=== PATIENT | male | born 1960 | race Caucasian/White ===

== ENCOUNTER 2022-10-31 09:57 | Inpatient (IN) | payer OTHER ==
[2022-10-31] MEDS ORDERED: RX INFO: IV CONTRAST WAS GIVEN 1 EACH MISC MISCELLANE PRN (10:10)
[2022-10-31] MEDS ORDERED: HYDROmorphone 0.5 MG/0.5 ML SYRINGE IVP STA (10:10)
--- NOTE | 2022-10-31 10:15 | ED ---
Chest Pain HPI - General Chief Complaint: Chest Pain Stated Complaint: chest pain Time Seen by Provider: 10/31/22 09:58 Source: patient, family, RN notes reviewed Mode of arrival: ambulatory Limitations: no limitations - History of Present Illness Initial Comments: This is a 62-year-old male who presents to the emergency department for chest pain and coughing up blood. 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 He had a biopsy of the mass and surrounding lymph nodes one week ago. This was all done at the [facility]. He has not been told if this tumor is cancerous or not, and he has not gotten the results of the recent biopsy. Since the biopsy, he has had increasing pain to the right side of the chest, which is where the biopsy was done. He is also unable to stop coughing, and is producing blood each time that he coughs. He did not have symptoms like this in terms of the pain and coughing up blood prior to the biopsy. Denies any fevers, chills, sore throat, palpitations, abdominal pain, nausea, vomiting, diarrhea, back pain, or headaches. MD Complaint: chest pain Onset/Timin -: week(s) Context: recent surgery Other Symptoms: cough - Related Data Home Medications Medication Instructions Recorded Confirmed Escitalopram [Lexapro] 10 mg PO HS 10/31/22 10/31/22 Ferrous Sulfate [Iron] 325 mg PO HS 10/31/22 10/31/22 HYDROcodone/APAP 7.5-325MG [[place] 1 tab PO Q6H PRN 10/31/22 10/31/22 7.5-325] Allergies Allergy/AdvReac Type Severity Reaction Status Date / Time No Known Allergies Allergy Verified 10/31/22 12:16 Review of Systems ROS Statement: Those systems with pertinent positive or pertinent negative responses have been documented in the HPI. ROS Other: All systems not noted in ROS Statement are negative. EKG Findings - EKG Comments: EKG Findings:: Sinus tachycardia. Normal axis. Ventricular rate 70 bpm, MD interval 170 ms, QRS duration 96 ms, QTC 373 ms. EKG interpreted by both myself and ED attending, Dr. Stephenson. Past Medical History Additional Past Medical History / Comment(s): Bronchitis, Lung tumor History of Any Multi-Drug Resistant Organisms: None Reported Past Surgical History: Joint Replacement, Orthopedic Surgery Additional Past Surgical History / Comment(s): [place] Pneumothorax. Past Psychological History: No Psychological Hx Reported Smoking Status: Current every day smoker Past Alcohol Use History: None Reported Past Drug Use History: None Reported General Exam Limitations: no limitations General appearance: alert, in distress Head exam: Present: atraumatic, normocephalic, normal inspection Respiratory exam: Present: respiratory distress. Absent: wheezes, rales, rhonchi Cardiovascular Exam: Present: normal rhythm, tachycardia Neurological exam: Present: alert, oriented X3, CN II-XII intact Psychiatric exam: Present: normal affect, normal mood Skin exam: Present: warm, dry, intact, normal color. Absent: rash Course Vital Signs 10/31/22 10/31/22 10/31/22 09:58 11:58 12:55 Temperature 98.7 F 99.4 F Pulse Rate 122 H 111 H 106 H Respiratory 24 22 22 Rate Blood Pressure 167/77 121/61 134/59 O2 Sat by Pulse 95 93 L 95 Oximetry Chest Pain MDM - MDM This is a 62 year old male who presents to the emergency department for chest pain and hemoptysis. Lab work reveals marked leukocytosis at 65.7. I did review his records from the [facility], this did not give results of his biopsy, however it did provide recent lab work. His last white blood cell count in early September was 25, which is the most recent comparison we have at this point. He does also have a slightly decreased hemoglobin level and a very elevated alkaline phosphatase along with multiple electrolyte irregularities. CT angiogram of the chest was obtained without d-dimer prior, as the possible cancer diagnosis may cause it to be positive regardless. Additionally, this will provide better evaluation of the suspected lung mass. My interpretation of the patient's computed tomography scan reveals a large mass in the right upper lobe with destruction of the first and second ribs on the right. The radiologist also makes note of chest wall involvement and possible right tracheal metastatic lymphadenopathy. Due to these findings and the patient's pain, hemoptysis, and difficulty breathing, he will be admitted to medicine with pulmonology and hematology/oncology consult. Due to the leukocytosis, he was started on broad- spectrum antibiotics including vancomycin and ceftriaxone. Blood and sputum cultures obtained prior. Additionally, he does meet SIRS criteria due to the WBC count and tachycardia. With a suspected infection, he meets sepsis criteria and was subsequently administered a 2500 L bolus of normal saline. Lactic acid level pending at the time of admission. This case was discussed in detail with the attending ED physician. Presentation, findings, and treatment plan discussed in detail as well. Disposition Clinical Impression: Cavitating mass in right upper lung lobe, Leukocytosis, Hemoptysis Disposition: ADMITTED IP TO THIS HOSP
[2022-10-31 10:51] LABS: Basophils # (A) 0.5 k/uL (0-0.2); Basophils % (A) 1 %; Eosinophils # (A) 0.4 k/uL (0-0.7); Eosinophils % (A) 1 %; HCT 32.3 % (39.0-53.0); HGB 10.3 gm/dL (13.0-17.5); Hypochromasia Slight; Lymphocytes # (A) 0.7 k/uL (1.0-4.8); Lymphocytes % (A) 1 %; MCH 28.5 pg (25.0-35.0); MCHC 31.8 g/dL (31.0-37.0); MCV 89.4 fL (80.0-100.0); Mean Platelet Volume 7.8; Monocytes # (A) 1.2 k/uL (0-1.0); Monocytes % (A) 2 %; Neutrophils # (A) 62.5 k/uL (1.3-7.7); Neutrophils % (A) 95 %; Platelet Count 504 k/uL (150-450); RBC 3.61 m/uL (4.30-5.90); RDW 13.9 % (11.5-15.5)
[2022-10-31 10:55] LABS: INR 1.3 (<1.2); Partial Thromboplastin Time 28.1 sec (22.0-30.0); Prothrombin Time 13.4 sec (9.0-12.0)
[2022-10-31 10:56] LABS: ALT 13 U/L (4-49); AST 24 U/L (17-59); African American GFR (CKD) >90 (>60 ml/min/1.73 sqM); Albumin 3.4 g/dL (3.5-5.0); Alkaline Phosphatase 619 U/L (38-126); Anion Gap 13 mmol/L; Blood Urea Nitrogen 13 mg/dL (9-20); Carbon Dioxide 17 mmol/L (22-30); Chloride 104 mmol/L (98-107); Glucose 116 mg/dL (74-99); Magnesium 1.6 mg/dL (1.6-2.3); Non-African American GFR(CKD) >90 (>60 ml/min/1.73 sqM); Potassium 3.3 mmol/L (3.5-5.1); Sodium 134 mmol/L (137-145); Total Bilirubin 0.7 mg/dL (0.2-1.3); Total Protein 6.5 g/dL (6.3-8.2); WBC 65.7 k/uL (3.8-10.6)
[2022-10-31 11:31] LABS: C Reactive Protein 30.6 mg/dL (<1.0)
--- NOTE | 2022-10-31 11:40 | CT ---
EXAMINATION TYPE: CT chest angio for PE DATE OF EXAM: 10/31/2022 COMPARISON: None HISTORY: 62-year-old male Chest pain TECHNIQUE: Contiguous axial scanning of the chest performed with IV Contrast, patient injected with 7 4 mL of Isovue 370. Coronal/sagittal MIP reconstructions performed. CT DLP: 401.8 mGycm Automated exposure control for dose reduction was used. FINDINGS: Heart normal size with trace anterior pericardial fluid. No flattening of the interventricular septum reflux of contrast into the hepatic veins. There is extensive patient breathing motion. Also, suboptimal contrast bolus with enhancement of only 198 Hounsfield units. There is large caliber to the central right and left main pulmonary arteries u p to 2.8 cm suggesting pulmonary arterial hypertension. No large central embolus is seen. Lobar, segm ental, and more to start her branches are very limited and nondiagnostic and emboli in these location s cannot be adequately excluded on the basis of this exam. Ectatic upper descending thoracic aorta at 3.3 cm. In metatarsal vessel branching anatomy. Enlarged right paratracheal node at 3.5 cm. Enlarged right hilar node at 2.1 cm. There is a right superior sulcus mass centered at the right apex but involving the chest wall as well . There is pathologic fracture of the right lateral first rib and right anterolateral second rib. Karl truction of a segment of the right lateral second rib and a small portion of the right lateral third rib. Extension beyond the rib margin by 1.6 cm beyond the intercostal musculature. Extensive internal areas of cavitation are present. Mass measures approximately 12.6 cm craniocaudal, coronal image 10 0, and up to 11.7 cm wide. Some adjacent airspace opacity lateral right upper lobe probably post obstructive pneumonitis. Background mild to moderate upper lung emphysema, particularly paraseptal emphysema. Extensive motion limiting the lower lungs. A couple 4 mm nonobstructive renal calculi are seen on either side. Minimal thickening of the left ad renal gland without discrete nodularity is nonspecific. Bones: Right-sided rib destruction and pathologic fractures as described above. IMPRESSION: 1. ASSESSMENT FOR PULMONARY EMBOLUS IS VERY LIMITED DUE TO PATIENT BREATHING DURING THE SCAN WELL SUBOPTIMAL CONTRAST BOLUS. THERE IS NO LARGE CENTRAL PULMONARY EMBOLUS. LOBAR, SEGMENTAL, AND MORE DISTAL ARTERIAL BRANCHES ARE VERY LIMITED TO NONDIAGNOSTIC AND EMBOLI IN THESE LOCATIONS CANNOT BE E XCLUDED ON THE BASIS OF THIS EXAM. 2. LARGE, PARTIALLY CAVITATING MASS INVOLVING THE RIGHT UPPER LOBE, RIGHT APEX, AND ADJACENT CHEST WA LL MEASURING UP TO 12.6 CM. THERE ARE PATHOLOGIC FRACTURES OF THE RIGHT FIRST AND SECOND RIBS AND KARL TRUCTION OF THE RIGHT LATERAL SECOND RIB AND A SMALL PORTION OF THE RIGHT LATERAL THIRD RIB. CHEST WA LL INVOLVEMENT WITH SOFT TISSUE EXTENSION BEYOND THE RIB MARGIN BY 1.6 CM. 3. SUSPECT RIGHT PARATRACHEAL METASTATIC LYMPHADENOPATHY MEASURING 3.5 CM. 4. SOME AIRSPACE OPACITY LATERAL RIGHT UPPER LOBE; CORRELATE FOR POSTOBSTRUCTIVE PNEUMONITIS.
[2022-10-31] MEDS ORDERED: VANCOMYCIN IV PER PHARMACY 1 EACH MISC MISCELLANE PRN (12:02)
[2022-10-31] MEDS ORDERED: HYDROmorphone 0.5 MG/0.5 ML SYRINGE IVP PRN (12:19)
[2022-10-31] MEDS ORDERED: NALOXONE 0.4 MG/ML 1 ML VIAL IV PRN (12:19)
[2022-10-31 12:48] LABS: Erythrocyte Sedimentation Rate 112 mm/hr (0-15)
[2022-10-31] MEDS: SODIUM CHLORIDE 0.9% 500 ML 500 ML IV SCH ×2 (12:54→14:56)
[2022-10-31] MEDS ORDERED: VANCOMYCIN 1,500 MG in SODIUM CHLORIDE 0.9% 500 ML 500 ML IVPB ONE (13:00)
[2022-10-31] MEDS: HYDROmorphone 1 MG/ML 1 ML SYRINGE IVP PRN ×4 (15:09→22:45)
[2022-10-31] MEDS: ACETAMINOPHEN TAB 325 MG TAB PO PRN (15:09)
--- NOTE | 2022-10-31 16:34 | P.CNPUL ---
History of Present Illness Consult date: 10/31/22 Requesting physician: Napoleon Ugalde Reason for consult: lung mass Chief complaint: Chronic cough History of present illness: This is a 62-year-old white male, heavy smoker, patient has been ill apparently for the last few months. Patient was found to have a right upper lobe cavitary mass, and he was seen at [facility] back in August in he underwent bronchoscopy and biopsy, however the biopsy was nondiagnostic. [facility] and he underwent another lung biopsy and this was supposedly done last week. Patient was never made aware of the results of the biopsy, and he was never told whether the findings are findings suggestive of lung cancer or suggestive of infection. Nonetheless the patient has been experiencing intermittent episodes of cough, cough is productive with brownish phlegm, and at times blood-tinged sputum. Patient has been losing weight, he lost over 30 pounds in the last few months. He called his primary care physician in [place], and he recommended that he goes to the nearest hospital. Patient is here today, and CT of the chest showed evidence of large cavitating mass involving the right upper lobe/right apex, with chest wall invasion, pathological fractures of the first and second ribs, and destruction of the right lateral second rib with chest wall invasion and extending beyond the rib margin by 1.6 cm. Patient was also found to have right paratracheal lymphadenopathy measuring 3.5 cm. Postobstructive pneumonitis was also felt to be likely in the picture. Clinically the patient has been complaining of cough, intermittent fever, chills, and weight loss. WBC count is 65.7 hemoglobin is 10.3. Electrolytes are normal, calcium is elevated at 11.0. Patient was also found to have elevated alkaline phosphatase of 619 considering the findings, patient will be admitted and we were asked to see him on consultation. I did see the patient in the ER, and I am strongly recommending transfer to the [facility] since we have no pathology report on this patient, and now the differential diagnoses includes most likely malignancy/lungs CTA, however the possibility of infection is not entirely ruled out. Or the patient may have a postobstructive pneumonitis no records are available for me to review from the [facility] or from [facility]. However I am strongly suspecting that were dealing with primary malignancy involving the right upper lobe Review of Systems Constitutional: Fever, and weight loss. HEENT: Negative Pulmonary: Cough, shortness of breath, as noted in HPI hemoptysis. Cardiac: Negative GI: Negative Genitourinary: Negative Muscular skeletal: Negative Skin: Negative hematologic: Negative Psychiatric: Negative Neurologic: Negative Past Medical History Additional Past Medical History / Comment(s): Bronchitis, Lung tumor History of Any Multi-Drug Resistant Organisms: None Reported Past Surgical History: Joint Replacement, Orthopedic Surgery Additional Past Surgical History / Comment(s): [place] Pneumothorax. Past Psychological History: No Psychological Hx Reported Smoking Status: Current every day smoker Past Alcohol Use History: None Reported Past Drug Use History: None Reported Medications and Allergies Home Medications Medication Instructions Recorded Confirmed Type Escitalopram [Lexapro] 10 mg PO HS 10/31/22 10/31/22 History Ferrous Sulfate [Iron] 325 mg PO HS 10/31/22 10/31/22 History HYDROcodone/APAP 7.5-325MG [[place] 1 tab PO Q6H PRN 10/31/22 10/31/22 History 7.5-325] Allergies Allergy/AdvReac Type Severity Reaction Status Date / Time No Known Allergies Allergy Verified 10/31/22 12:16 Physical Exam Vitals: Vital Signs Temp Pulse Resp BP Pulse Ox 10/31/22 14:58 99.3 F 106 H 21 139/75 95 10/31/22 12:55 106 H 22 134/59 95 10/31/22 11:58 99.4 F 111 H 22 121/61 93 L 10/31/22 09:58 98.7 F 122 H 24 167/77 95 Intake and Output 10/31/22 10/31/22 10/31/22 06:59 14:59 22:59 Other: Weight 77.111 kg Physical Exam: Revealed a 62-year-old white male noted to have significant cough throughout the whole interview. Head: Atraumatic normocephalic. HEENT:[Neck is supple.] [No neck masses.] [No thyromegaly.] [No JVD.] Chest: [Scattered rhonchi noted bilaterally more so on forced expiratory maneuver. Cardiac Exam: [Normal S1 and S2, no S3 gallop, no murmur.] Abdomen: [Soft, nontender, no megaly, no rebound, no guarding, normal bowel sounds.] Extremities: [No clubbing, no edema, no cyanosis.] Neurological Exam: [No focal neurologic deficit.] Alert oriented 3. Psychiatric: Normal mood affect and normal mental status examination. Skin: No rashes. Results - Laboratory Findings CBC and BMP: 10/31/22 10:35 10/31/22 10:35 PT/INR, D-dimer PT 13.4 sec (9.0-12.0) H 10/31/22 10:35 INR 1.3 (<1.2) H 10/31/22 10:35 Abnormal lab findings: Abnormal Labs 10/31/22 10/31/22 10/31/22 10:35 10:35 10:35 WBC 65.7 H* RBC 3.61 L Hgb 10.3 L Hct 32.3 L Plt Count 504 H Neutrophils # 62.5 H Lymphocytes # 0.7 L Monocytes # 1.2 H Basophils # 0.5 H ESR 112 H PT 13.4 H INR 1.3 H Sodium 134 L Potassium 3.3 L Carbon Dioxide 17 L Glucose 116 H Calcium 11.0 H Alkaline Phosphatase 619 H C-Reactive Protein 30.6 H Albumin 3.4 L - Diagnostic Findings CT scan - chest: image reviewed (As noted in HPI.) Assessment and Plan Assessment: Impression: Large right upper lobe mass with cavitation and possible postobstructive pneumonitis. Differential diagnoses includes bronchogenic carcinoma and/or ex tensive necrotizing pneumonia involving the right upper lobe. Or possibly both. Leukocytosis secondary to above, possible leukemoid reaction Weight loss secondary to above Acute exacerbation of COPD Tobacco dependence syndrome Status post bronchoscopy 2, one done at [facility] and one done at the [facility], results are not available since his last bronchoscopy was done within the last week. Recommendation: Consider transferring patient to the [facility] where he had his biopsy Start patient empirically on antibiotics I would recommend for now vancomycin and Zosyn Retrieve the pathology report from the [facility], patient had bronchoscopy in the last 1 week. If results are nondiagnostic patient may have to have repeat bronchoscopy with transbronchial biopsy or possibly CT-guided needle biopsy of the right upper lobe mass. Bronchodilators in the form of DuoNeb, and Symbicort. Check sputum cultures and blood cultures Monitor his leukocytosis. Preferably would be best to transfer the patient back to the [facility] rather than waiting for few days before we could get any results on his pathology. And this is highly recommended We will continue to follow Time with Patient: Greater than 30
[2022-10-31] MEDS: PIPERACILLIN-TAZOBACTAM 3.375 GM in SODIUM CHLORIDE 0.9% 100 ML IVPB SCH ×2 (16:41→23:14)
[2022-10-31] MEDS ORDERED: POTASSIUM CHLORIDE 20 MEQ in WATER FOR INJECTION 1 100ML.BAG IVPB STA (18:48)
--- NOTE | 2022-10-31 18:51 | P.HPIM ---
History of Present Illness H&P Date: 10/31/22 Patient is a 62-year-old male with past medical history of right lung mass and [id number] smoking history presents the ED for right-sided chest pain, cough productive of brown sputum, hemoptysis and shortness of breath. Patient gets all of his care from the [facility]. He underwent bronchoscopy and biopsy in August 2022 for right lung mass. Pathology was nondiagnostic at that time. Patient reports undergoing a second bronchoscopy and lung biopsy last week with the [facility] in [place]. He is unaware of the pathology results from this biopsy. He reports worsening cough productive of brown sputum and blood. He reports exertional shortness of breath. He reports right-sided chest pain worsened with deep inspiration and cough. Of note, patient also reports 30 pound weight loss since August, unintentional. He also reports fever and chills. He denies any headache, lower extremity edema, nausea or vomiting, palpitations, changes in urination or bowel habits. He denies any dizziness, numb ness/weakness/tingling of the extremities. In the ED, he was noted to be tachycardic with heart rate in the 120s. Vital signs were otherwise stable. CBC showed WBC count of 65.7 which was lymphocytic in nature with hemoglobin of 10.3 and platelet count of 504. INR was 1.3. CMP showed sodium 134, potassium of 3.3, bicarb of 17, glucose 116, calcium of 11, alkaline phosphatase of 619. Troponin was less than 0.012, EKG showing sinus tachycardia. Lactic acid negative. CRP was 30.6. ESR was 112. CTA chest showed no PE, large cavitary mass involving the right upper lobe, right apex and adjacent chest wall measuring 12.6 cm with pathologic fractures of the right first and second rubs, right paratracheal metastatic lymphadenopathy measuring 3.5 cm, airspace opacity lateral right upper lobe possible postobstructive pneumonitis. Initially, plan was to transfer the patient to [facility] in [place]. Due to lack of bed availability, patient has been admitted for further management of symptoms. Pertinent positives and negatives as discussed in HPI, a complete review of systems was performed and all other systems are negative. General: non toxic, moderate distress, appears at stated age Derm: warm, dry Head: atraumatic, normocephalic, symmetric Eyes: EOMI, no lid lag, anicteric sclera Mouth: no lip lesion, mucus membranes moist Cardiovascular: Tachycardic, no murmur, positive posterior tibial pulse bilateral, Lungs: Expiratory wheezing bilateral, rhonchi noted in all lung alvarado , no accessory muscle use Abdominal: soft, nontender to palpation, no guarding, no appreciable organome austen Ext: no gross muscle atrophy, no edema, no contractures Neuro: CN II-XI grossly intact, no focal neuro deficits Psych: Alert, oriented, appropriate affect #Right upper lobe mass #Sepsis related to hospital-acquired pneumonia #Hemoptysis #Right-sided chest pain #Leukocytosis His leukocytosis is lymphocytic predominant. He also meets sepsis criteria with leukocytosis, tachycadia and positive source of infection. Concern for CLL. Concern for bronchogenic carcinoma with superimposed pneumonia. ESR and CRP elevated. Start Vancomycin and Zosyn for broad spectrum antibiotic coverage. Pain control with Dilaudid PNR. DuoNeb PRN for SOB/wheezing. Telemetry monitoring. Start NS at 100 cc/hr. Follow blood culture, sputum culture, influenza, COVID 19 test. Check procalcitonin. Obtain pathology results from [facility] in [place]. Pulmonology, Oncology and Infectious disease consulted. #Normocytic anemia Obtain iron studies, B12, Folate. Repeat CBC tomorrow. #Hypokalemia Replace and repeat BMP tomorrow. #Metabolic acidosis Likely due to underlying malignancy. Lactic acid negative. Continue IV hydration as above. #History of tobacco abuse Patient has quit. Patient names his decision maker if he cant make decisions for himself. Patient would like to be FULL CODE. Past Medical History Additional Past Medical History / Comment(s): Bronchitis, Lung tumor History of Any Multi-Drug Resistant Organisms: None Reported Past Surgical History: Joint Replacement, Orthopedic Surgery Additional Past Surgical History / Comment(s): [place] Pneumothorax. Past Psychological History: No Psychological Hx Reported Smoking Status: Current every day smoker Past Alcohol Use History: None Reported Past Drug Use History: None Reported Medications and Allergies Home Medications Medication Instructions Recorded Confirmed Type Escitalopram [Lexapro] 10 mg PO HS 10/31/22 10/31/22 History Ferrous Sulfate [Iron] 325 mg PO HS 10/31/22 10/31/22 History HYDROcodone/APAP 7.5-325MG [[place] 1 tab PO Q6H PRN 10/31/22 10/31/22 History 7.5-325] Allergies Allergy/AdvReac Type Severity Reaction Status Date / Time No Known Allergies Allergy Verified 10/31/22 12:16 Physical Exam Vitals: Vital Signs Temp Pulse Resp BP Pulse Ox 10/31/22 14:58 99.3 F 106 H 21 139/75 95 10/31/22 12:55 106 H 22 134/59 95 10/31/22 11:58 99.4 F 111 H 22 121/61 93 L 10/31/22 09:58 98.7 F 122 H 24 167/77 95 Intake and Output 10/31/22 10/31/22 10/31/22 06:59 14:59 22:59 Other: Weight 77.111 kg Results CBC & Chem 7: 10/31/22 10:35 10/31/22 10:35 Labs: Abnormal Lab Results - Last 24 Hours (Table) 10/31/22 10/31/22 10/31/22 Range/Units 10:35 10:35 10:35 WBC 65.7 H* (3.8-10.6) k/uL RBC 3.61 L (4.30-5.90) m/uL Hgb 10.3 L (13.0-17.5) gm/dL Hct 32.3 L (39.0-53.0) % Plt Count 504 H (150-450) k/uL Neutrophils # 62.5 H (1.3-7.7) k/uL Lymphocytes # 0.7 L (1.0-4.8) k/uL Monocytes # 1.2 H (0-1.0) k/uL Basophils # 0.5 H (0-0.2) k/uL ESR 112 H (0-15) mm/hr PT 13.4 H (9.0-12.0) sec INR 1.3 H (<1.2) Sodium 134 L (137-145) mmol/L Potassium 3.3 L (3.5-5.1) mmol/L Carbon Dioxide 17 L (22-30) mmol/L Glucose 116 H (74-99) mg/dL Calcium 11.0 H (8.4-10.2) mg/dL Alkaline Phosphatase 619 H (38-126) U/L C-Reactive Protein 30.6 H (<1.0) mg/dL Albumin 3.4 L (3.5-5.0) g/dL
[2022-10-31] MEDS: IPRATROPIUM-ALBUTEROL 3 ML NEB INHALATION SCH ×2 (19:15→23:46)
[2022-10-31] MEDS: SODIUM CHLORIDE 0.9% 1,000 ML IV SCH (22:49)
[2022-10-31] MEDS: ESCITALOPRAM 10 MG TAB PO SCH (23:02)
[2022-10-31] MEDS: FERROUS SULFATE 325 MG TAB PO SCH (23:02)
[2022-10-31] MEDS: VANCOMYCIN 1,500 MG in SODIUM CHLORIDE 0.9% 500 ML 500 ML IVPB SCH (23:05)
[2022-11-01] MEDS: HYDROmorphone 1 MG/ML 1 ML SYRINGE IVP PRN ×3 (01:23→08:33)
[2022-11-01] MEDS: IBUPROFEN 400 MG TAB PO PRN ×2 (03:14→10:37)
[2022-11-01] MEDS: IPRATROPIUM-ALBUTEROL 3 ML NEB INHALATION SCH ×6 (04:03→23:34)
[2022-11-01] MEDS: VANCOMYCIN 1,500 MG in SODIUM CHLORIDE 0.9% 500 ML 500 ML IVPB SCH ×2 (05:07→14:24)
[2022-11-01] MEDS: SODIUM CHLORIDE 0.9% 1,000 ML IV SCH (05:08)
[2022-11-01] MEDS: PIPERACILLIN-TAZOBACTAM 3.375 GM in SODIUM CHLORIDE 0.9% 100 ML IVPB SCH ×2 (08:35→17:04)
[2022-11-01] MEDS: ONDANSETRON 4 MG/2 ML VIAL IVP PRN (08:40)
[2022-11-01 09:00] LABS: African American GFR (CKD) >90 (>60 ml/min/1.73 sqM); Anion Gap 10 mmol/L; Blood Urea Nitrogen 10 mg/dL (9-20); Carbon Dioxide 20 mmol/L (22-30); Chloride 110 mmol/L (98-107); Glucose 98 mg/dL (74-99); Non-African American GFR(CKD) >90 (>60 ml/min/1.73 sqM); Potassium 3.3 mmol/L (3.5-5.1); Sodium 140 mmol/L (137-145)
--- NOTE | 2022-11-01 10:44 | P.PN ---
Subjective Progress Note Date: 11/01/22 This is a 62-year-old white male, heavy smoker, patient has been ill apparently for the last few months. Patient was found to have a right upper lobe cavitary mass, and he was seen at [facility] back in August in he underwent bronchoscopy and biopsy, however the biopsy was nondiagnostic. Patient was seen at the [facility] and he underwent another lung biopsy and this was supposedly done last week. Patient was never made aware of the results of the biopsy, and he was never told whether the findings are findings suggestive of lung cancer or suggestive of infection. Nonetheless the patient has been experiencing intermittent episodes of cough, cough is productive with brownish phlegm, and at times blood-tinged sputum. Patient has been losing weight, he lost over 30 pounds in the last few months. He called his primary care physician in [place], and he recommended that he goes to the nearest hospital. Patient is here today, and CT of the chest showed evidence of large cavitating mass involving the right upper lobe/right apex, with chest wall invasion, pathological fractures of the first and second ribs, and destruction of the right lateral second rib with chest wall invasion and extending beyond the rib margin by 1.6 cm. Patient was also found to have right paratracheal lymp hadenopathy measuring 3.5 cm. Postobstructive pneumonitis was also felt to be likely in the picture. Clinically the patient has been complaining of cough, intermittent fever, chills, and weight loss. WBC count is 65.7 hemoglobin is 10.3. Electrolytes are normal, calcium is elevated at 11.0. Patient was also found to have elevated alkaline phosphatase of 619 considering the findings, patient will be admitted and we were asked to see him on consultation. I did see the patient in the ER, and I am strongly recommending transfer to the [facility] since we have no pathology report on this patient, and now the differential diagnoses includes most likely malignancy/lungs CTA, however the possibility of infection is not entirely ruled out. Or the patient may have a postobstructive pneumonitis no records are available for me to review from the [facility] or from [facility]. However I am strongly suspecting that were dealing with primary malignancy involving the right upper lobe. The patient is seen today 11/01/2022 in follow-up on the regular medical floor. He is awake and alert in no acute distress. Currently resting comfortably in bed. Maintaining O2 saturations in the 90s on room air. Sputum culture pending. Sodium 140. Potassium 3.3. Chloride 110. Bicarb 20. BUN 10. Creatinine 0.80. Bryant virus not detected. Influenza screen negative. He remains on bronchodilators. Antibiotics in the form of a myosin and Zosyn. He has a productive cough of tannish yellow sputum. The patient states he spoke with a nurse from the [facility] who did tell him his pathology was positive for cancer. We are trying to obtain these results. The patient does have right upper lobe chest wall protrusion. He also has a right subclavian enlarged lymph node. Oncology has been consulted. Objective - Vital Signs Vital signs: Vital Signs Temp 99.2 F 11/01/22 04:56 Pulse 96 11/01/22 09:04 Resp 16 11/01/22 04:56 BP 121/62 11/01/22 04:56 Pulse Ox 93 L 11/01/22 04:56 FiO2 Intake & Output 10/31/22 11/01/22 11/01/22 18:59 06:59 18:59 Output Total 300 Balance -300 Weight 77.111 kg 77.111 kg Output: Urine 300 - Exam GENERAL EXAM: Alert, pleasant 62-year-old male, on room air, fairly comfortable in no apparent distress. HEAD: Normocephalic. EYES: Normal reaction of pupils, equal size. NOSE: Clear with pink turbinates. THROAT: No erythema or exudates. NECK: Enlarged right supraclavicular lymph node, no JVD. CHEST: There is tumor protruding into the right apical chest below the clavicle. LUNGS: Equal air entry with scattered rhonchi more so on the right lung. CVS: S1 and S2 normal with no audible murmur, regular rhythm. ABDOMEN: No hepatosplenomegaly, normal bowel sounds, no guarding or rigidity. SPINE: No scoliosis or deformity SKIN: No rashes CENTRAL NERVOUS SYSTEM: No focal deficits, tone is normal in all 4 extremities. EXTREMITIES: There is no peripheral edema. No clubbing, no cyanosis. Peripher al pulses are intact. - Labs CBC & Chem 7: 10/31/22 10:35 11/01/22 07:51 Labs: Abnormal Lab Results - Last 24 Hours (Table) 10/31/22 10/31/22 10/31/22 Range/Units 10:35 10:35 10:35 WBC 65.7 H* (3.8-10.6) k/uL RBC 3.61 L (4.30-5.90) m/uL Hgb 10.3 L (13.0-17.5) gm/dL Hct 32.3 L (39.0-53.0) % Plt Count 504 H (150-450) k/uL Neutrophils # 62.5 H (1.3-7.7) k/uL Lymphocytes # 0.7 L (1.0-4.8) k/uL Monocytes # 1.2 H (0-1.0) k/uL Basophils # 0.5 H (0-0.2) k/uL ESR 112 H (0-15) mm/hr PT 13.4 H (9.0-12.0) sec INR 1.3 H (<1.2) Sodium 134 L (137-145) mmol/L Potassium 3.3 L (3.5-5.1) mmol/L Chloride (98-107) mmol/L Carbon Dioxide 17 L (22-30) mmol/L Glucose 116 H (74-99) mg/dL Calcium 11.0 H (8.4-10.2) mg/dL Alkaline Phosphatase 619 H (38-126) U/L C-Reactive Protein 30.6 H (<1.0) mg/dL Albumin 3.4 L (3.5-5.0) g/dL 11/01/22 Range/Units 07:51 WBC (3.8-10.6) k/uL RBC (4.30-5.90) m/uL Hgb (13.0-17.5) gm/dL Hct (39.0-53.0) % Plt Count (150-450) k/uL Neutrophils # (1.3-7.7) k/uL Lymphocytes # (1.0-4.8) k/uL Monocytes # (0-1.0) k/uL Basophils # (0-0.2) k/uL ESR (0-15) mm/hr PT (9.0-12.0) sec INR (<1.2) Sodium (137-145) mmol/L Potassium 3.3 L (3.5-5.1) mmol/L Chloride 110 H (98-107) mmol/L Carbon Dioxide 20 L (22-30) mmol/L Glucose (74-99) mg/dL Calcium (8.4-10.2) mg/dL Alkaline Phosphatase (38-126) U/L C-Reactive Protein (<1.0) mg/dL Albumin (3.5-5.0) g/dL Microbiology - Last 24 Hours (Table) 10/31/22 13:31 Gram Stain - Preliminary Sputum Sputum Culture - Preliminary Assessment and Plan Assessment: Large right upper lobe mass with cavitation and possible postobstructive pne umonitis. Differential diagnoses includes bronchogenic carcinoma and/or extensive necrotizing pneumonia involving the right upper lobe. Or possibly both. Computed tomography scan revealed enlarged right paratracheal node at 3.5 cm. Enlarged right hilar node at 2.1 cm. There is a right superior sulcus mass centered at the right apex but involving the chest wall as well. There is pathologic fracture of the right lateral first rib and right anterolateral second rib. Destruction of a segment of the right lateral second rib and a small portion of the right lateral third rib. Extension be on the rib margin by 1.6 cm beyond the intercostal musculature. Extensive internal areas of cavitation are present. Mass measures 12.6 cm x 11.7 cm. Some airspace opacity in the lateral right upper lobe. The remaining stable and on room air currently. Sputum culture pending. Pro-calcitonin pending. Remains on vancomycin and Zosyn. Leukocytosis secondary to above, possible leukemoid reaction Weight loss secondary to above Acute exacerbation of COPD Tobacco dependence syndrome Status post bronchoscopy 2, one done at [facility] and one done at the [facility], results are not available since his last bronchoscopy was done within the last week Plan: The patient was seen and evaluated Labs and medications reviewed Continue vancomycin and Zosyn Obtain a pro-calcitonin Sputum culture pending Currently stable and on room air He states he was told by a nurse from [facility] he does have cancer We are trying to obtain pathology reports Oncology has been consulted We will continue to follow and make further recommendations based on his clinical status I have personally seen and examined the patient, performed the documentation and the assessment and plan as written. Number of minutes spent on the visit: 10.
[2022-11-01 10:55] LABS: HCT 30.5 % (39.6-50.0); HGB 9.6 g/dL (13.0-17.0); MCH 28.8 pg (27.0-32.0); MCHC 31.5 g/dL (32.0-37.0); MCV 91.6 fL (80.0-97.0); Mean Platelet Volume 9.6 fL (9.5-12.2); NRBC Per 100 WBC 0 /100 WBCS (0.0-0.0); Platelet Count 466 X 10*3/uL (140-440); RBC 3.33 X 10*6/uL (4.40-5.60); RDW 14.6 % (11.5-14.5); WBC 61.99 X 10*3/uL (4.50-10.00)
[2022-11-01] MEDS ORDERED: MORPHINE SULFATE 4 MG/ML SYRINGE IVP STA (11:19)
[2022-11-01] MEDS: oxyCODONE-APAP 10-325MG 1 EACH TAB PO SCH ×3 (11:34→22:58)
--- NOTE | 2022-11-01 11:58 | P.PN ---
Subjective Progress Note Date: 11/01/22 Patient is a 62-year-old male with past medical history of right lung mass and [id number] smoking history presents the ED for right-sided chest pain, cough productive of brown sputum, hemoptysis and shortness of breath. Patient gets all of his care from the [facility]. He underwent bronchoscopy and biopsy in August 2022 for right lung mass. Pathology was nondiagnostic at that time. Patient reports undergoing a second bronchoscopy and lung biopsy last week with the [facility] in [place]. He is unaware of the pathology results from this biopsy. He reports worsening cough productive of brown sputum and blood. He reports exertional shortness of breath. He reports right-sided chest pain worsened with deep inspiration and cough. Of note, patient also reports 30 pound weight loss since August, unintentional. He also reports fever and chills. He denies any headache, lower extremity edema, nausea or vomiting, palpitations, changes in urination or bowel habits. He denies any dizziness, numbness/w eakness/tingling of the extremities. In the ED, he was noted to be tachycardic with heart rate in the 120s. Vital signs were otherwise stable. CBC showed WBC count of 65.7 which was lymphocytic in nature with hemoglobin of 10.3 and platelet count of 504. INR was 1.3. CMP showed sodium 134, potassium of 3.3, bicarb of 17, glucose 116, calcium of 11, alkaline phosphatase of 619. Troponin was less than 0.012, EKG showing sinus tachycardia. Lactic acid negative. CRP was 30.6. ESR was 112. CTA chest showed no PE, large cavitary mass involving the right upper lobe, right apex and adjacent chest wall measuring 12.6 cm with pathologic fractures of the right first and second rubs, right paratracheal metastatic lymphadenopathy measuring 3.5 cm, airspace opacity lateral right upper lobe possible postobstructive pneumonitis. Initially, plan was to transfer the patient to [facility] in [place]. Due to lack of bed availability, patient has been admitted for further management of symptoms. Patient was seen and examined. He continues to report chest pain with cough. Coughing up brown sputum. General: non toxic, moderate distress, appears at stated age Derm: warm, dry Head: atraumatic, normocephalic, symmetric Eyes: EOMI, no lid lag, anicteric sclera Mouth: no lip lesion, mucus membranes moist Cardiovascular: Tachycardic, no murmur, positive posterior tibial pulse bilateral, Lungs: Expiratory wheezing bilateral, rhonchi noted in all lung alvarado , no accessory muscle use Abdominal: soft, nontender to palpation, no guarding, no appreciable organomegaly Ext: no gross muscle atrophy, no edema, no contractures Neuro: no focal neuro deficits Psych: Alert, oriented, appropriate affect #Right upper lobe mass #Sepsis related to hospital-acquired pneumonia #Hemoptysis #Right-sided chest pain #Leukocytosis His leukocytosis is neutrophilic predominant. He also meets sepsis criteria with leukocytosis, tachycadia and positive source of infection. Concern for bronchogenic carcinoma with superimposed pneumonia. ESR and CRP elevated. Continue Vancomycin and Zosyn for broad spectrum antibiotic coverage. Pain control with Morphine PRN and started on scheduled Percocet. DuoNeb PRN for SOB/wheezing. Telemetry monitoring. DC IVF and encourage hydration by mouth. Follow blood culture, sputum culture, influenza, COVID 19 test. Check procalcitonin. Obtain pathology results from [facility] in [place]. Oncology consult - Discussed with Dr. Estevez, follow up with [facility] for further treatment and management on right lung mass. Pulmonology, Oncology and Infectious disease consulted. #Normocytic anemia Obtain iron studies, B12, Folate. Repeat CBC tomorrow. #Hypokalemia Replace and repeat BMP tomorrow. #Metabolic acidosis Likely due to underlying malignancy. Lactic acid negative. Continue IV hydration as above. #History of tobacco abuse Patient has quit. Patient names his decision maker if he cant make decisions for himself. Patient would like to be FULL CODE. Objective - Vital Signs Vital signs: Vital Signs Temp 99.2 F 11/01/22 04:56 Pulse 84 11/01/22 11:49 Resp 16 11/01/22 04:56 BP 121/62 11/01/22 04:56 Pulse Ox 93 L 11/01/22 04:56 FiO2 Intake & Output 10/31/22 11/01/22 11/01/22 18:59 06:59 18:59 Output Total 300 Balance -300 Weight 77.111 kg 77.111 kg Output: Urine 300 - Labs CBC & Chem 7: 11/01/22 07:51 11/01/22 07:51 Labs: Abnormal Lab Results - Last 24 Hours (Table) 10/31/22 11/01/22 11/01/22 Range/Units 10:35 07:51 07:51 WBC 61.99 H* (4.50-10.00) X 10*3/uL RBC 3.33 L (4.40-5.60) X 10*6/uL Hgb 9.6 L (13.0-17.0) g/dL Hct 30.5 L (39.6-50.0) % MCHC 31.5 L (32.0-37.0) g/dL RDW 14.6 H (11.5-14.5) % Plt Count 466 H (140-440) X 10*3/uL Neutrophils # 62.5 H (1.3-7.7) k/uL Lymphocytes # 0.7 L (1.0-4.8) k/uL Monocytes # 1.2 H (0-1.0) k/uL Basophils # 0.5 H (0-0.2) k/uL ESR 112 H (0-15) mm/hr Potassium 3.3 L (3.5-5.1) mmol/L Chloride 110 H (98-107) mmol/L Carbon Dioxide 20 L (22-30) mmol/L Microbiology - Last 24 Hours (Table) 10/31/22 13:31 Gram Stain - Preliminary Sputum Sputum Culture - Preliminary
[2022-11-01] MEDS: POTASSIUM CHLORIDE 10 MEQ in WATER FOR INJECTION 1 100ML.BAG IVPB SCH ×4 (12:49→23:04)
[2022-11-01] MEDS: MORPHINE SULFATE 4 MG/ML SYRINGE IVP PRN ×3 (14:22→21:37)
[2022-11-01 18:19] LABS: Iron 16 ug/dL (65-175); Total Iron Binding Capacity 141 ug/dL (228-460)
[2022-11-01] MEDS: FERROUS SULFATE 325 MG TAB PO SCH (21:24)
[2022-11-01] MEDS: ESCITALOPRAM 10 MG TAB PO SCH (21:24)
--- NOTE | 2022-11-01 21:25 | P.CONS ---
History of Present Illness - Reason for Consult Consult date: 11/01/22 Right Lung Mass - History of Present Illness The patient is a 62-year-old white male, presenting with complains of not fe eling well, shortness of breath, and cough productive of brownish phlegm with intermittent small amounts of blood. The patient's symptoms started about 3-4 months ago. They have been associated with decreased appetite and weight loss about 30 pounds. The patient did not respond rapidly to outpatient treatment for pneumonia and was subsequently found to have a large right upper lobe mass on imaging. He had a bronchoscopy with biopsy at [facility] in 08/23 when this was apparently nondiagnostic. He was then seen at the [facility] in [place] and had on the biopsy about a week ago but is not aware of those results. He came in because of persistence and progression of the above sym ptoms. The patient's computed tomography scan shows a large right upper lobe cavitating mass, with invasion into the chest wall and the first and second ribs with some associated rib destruction. There is also 3.5 cm right paratracheal adenopathy. Consult was therefore placed for further evaluation and recommendations. the patient has a history of a pack a day of more than 40 years. Review of Systems Constitutional: Reports fatigue, Reports poor appetite, Reports weight loss Eyes: denies blurred vision, denies pain Ears: deny: decreased hearing, ear discharge, earache, tinnitus Ears, nose, mouth and throat: Denies headache, Denies sore throat Cardiovascular: Reports chest pain, Reports shortness of breath Respiratory: Reports cough with sputum, Reports hemoptysis, Reports pain Gastrointestinal: Denies abdominal pain, Denies diarrhea, Denies nausea, Denies vomiting Genitourinary: Reports as per HPI Musculoskeletal: Reports muscle weakness Integumentary: Denies pruritus, Denies rash Neurological: Reports weakness Psychiatric: Reports anxiety, Reports irritability Endocrine: Reports fatigue, Reports weight change Hematologic/Lymphatic: Reports as per HPI Past Medical History Past Medical History: Pneumonia Additional Past Medical History / Comment(s): 08/2022 R upper lung mass, past pneumonia, born with bronchitis, bilateral pneumothorax at separate times treated with chest tubes, anemia, pt denies hx of copd. History of Any Multi-Drug Resistant Organisms: None Reported Past Surgical History: Orthopedic Surgery Additional Past Surgical History / Comment(s): 08/2022 R lung bx at [facility], 10/2022 R lung bx at [facility], R knee arthroscopic surgery, L wrist ganglion cyst re moved, L great toe titanium plate, colonoscopies/benign polypectomies. Past Anesthesia/Blood Transfusion Reactions: No Reported Reaction Smoking Status: Former smoker - Past Family History Mother Family Medical History: Vascular Disorder Additional Family Medical History / Comment(s): Mother at the age of 78yrs from ruptured aortic aneurysm. Father Additional Family Medical History / Comment(s): Pt unable to recall specific health issues with his father. Father is alive in his mid 90s Medications and Allergies Home Medications Medication Instructions Recorded Confirmed Type Escitalopram [Lexapro] 10 mg PO HS 10/31/22 10/31/22 History Ferrous Sulfate [Iron] 325 mg PO HS 10/31/22 10/31/22 History HYDROcodone/APAP 7.5-325MG [Moorcroft 1 tab PO Q6H PRN 10/31/22 10/31/22 History 7.5-325] Allergies Allergy/AdvReac Type Severity Reaction Status Date / Time No Known Allergies Allergy Verified 10/31/22 12:16 Physical Exam Vitals: Vital Signs Temp Pulse Pulse Resp BP BP Pulse Ox 11/01/22 09:04 96 11/01/22 08:51 96 11/01/22 04:56 99.2 F 102 H 16 121/62 93 L 11/01/22 04:15 90 11/01/22 04:04 87 10/31/22 23:57 91 10/31/22 23:46 94 10/31/22 22:23 98.3 F 111 H 20 153/62 93 L 10/31/22 20:00 16 10/31/22 19:23 95 10/31/22 19:15 96 10/31/22 18:59 98.9 F 97 18 120/58 94 L 10/31/22 14:58 99.3 F 106 H 21 139/75 95 10/31/22 12:55 106 H 22 134/59 95 10/31/22 11:58 99.4 F 111 H 22 121/61 93 L 10/31/22 09:58 98.7 F 122 H 24 167/77 95 Intake and Output 10/31/22 11/01/22 11/01/22 22:59 06:59 14:59 Output Total 300 Balance -300 Output: Urine 300 Other: Weight 77.111 kg - Constitutional General appearance: no acute distress - EENT Eyes: EOMI, PERRLA ENT: hearing grossly normal, normal oropharynx - Neck Neck: lymphadenopathy (somewhat ill-defined right supraclavicular mass) Thyroid: bilateral: normal size - Respiratory Respiratory: right: diminished - Cardiovascular Rhythm: regular - Gastrointestinal General gastrointestinal: normal bowel sounds, soft - Integumentary Integumentary: normal - Neurologic Neurologic: CNII-XII intact - Musculoskeletal soft tissue swelling right upper chest wall and right axilla, with significant tenderness on palpation of the chest wall in this area Musculoskeletal: generalized weakness, strength equal bilaterally - Psychiatric Psychiatric: A&O x's 3, appropriate affect Results CBC & Chem 7: 11/01/22 07:51 11/01/22 07:51 Labs: Abnormal Lab Results - Last 24 Hours (Table) 10/31/22 10/31/22 10/31/22 Range/Units 10:35 10:35 10:35 WBC 65.7 H* (3.8-10.6) k/uL RBC 3.61 L (4.30-5.90) m/uL Hgb 10.3 L (13.0-17.5) gm/dL Hct 32.3 L (39.0-53.0) % Plt Count 504 H (150-450) k/uL Neutrophils # 62.5 H (1.3-7.7) k/uL Lymphocytes # 0.7 L (1.0-4.8) k/uL Monocytes # 1.2 H (0-1.0) k/uL Basophils # 0.5 H (0-0.2) k/uL ESR 112 H (0-15) mm/hr PT 13.4 H (9.0-12.0) sec INR 1.3 H (<1.2) Sodium 134 L (137-145) mmol/L Potassium 3.3 L (3.5-5.1) mmol/L Chloride (98-107) mmol/L Carbon Dioxide 17 L (22-30) mmol/L Glucose 116 H (74-99) mg/dL Calcium 11.0 H (8.4-10.2) mg/dL Alkaline Phosphatase 619 H (38-126) U/L C-Reactive Protein 30.6 H (<1.0) mg/dL Albumin 3.4 L (3.5-5.0) g/dL 11/01/22 Range/Units 07:51 WBC (3.8-10.6) k/uL RBC (4.30-5.90) m/uL Hgb (13.0-17.5) gm/dL Hct (39.0-53.0) % Plt Count (150-450) k/uL Neutrophils # (1.3-7.7) k/uL Lymphocytes # (1.0-4.8) k/uL Monocytes # (0-1.0) k/uL Basophils # (0-0.2) k/uL ESR (0-15) mm/hr PT (9.0-12.0) sec INR (<1.2) Sodium (137-145) mmol/L Potassium 3.3 L (3.5-5.1) mmol/L Chloride 110 H (98-107) mmol/L Carbon Dioxide 20 L (22-30) mmol/L Glucose (74-99) mg/dL Calcium (8.4-10.2) mg/dL Alkaline Phosphatase (38-126) U/L C-Reactive Protein (<1.0) mg/dL Albumin (3.5-5.0) g/dL Microbiology - Last 24 Hours (Table) 10/31/22 13:31 Gram Stain - Preliminary Sputum Sputum Culture - Preliminary Comments: EKG image reviewed CT scan - chest: report reviewed Assessment and Plan (1) Cavitating mass in right upper lung lobe Narrative/Plan: the clinical picture is quite consistent with malignancy. Patient is aware of the same. Based on the CT scan results he appears to have at least locally advanced disease. - The patient apparently has had a biopsy last week at the [facility] but is not aware of the results. He stated that he is also had a PET scan, and MRI. We do not have those results available but the patient feels that he was told that the patient did not show metastatic disease. - The patient is established in the [facility] system, and has an appointment upcoming with their thoracic oncology clinic in mid 11/22 - The patient did state that it would be more convenient for him to be treated locally. However he does not know if he has any [facility]. I discussed with him that in that case, the switching care locally after getting approval through the [facility] from there be a choice system, may cause further delays in his care. Since it appears that he already has had all his workup completed, at this time it would be optimal for him to continue care through the [facility]. He was advised to call them to try to move up his appointment. The above plan was also discussed in detail with the admitting service. Current Visit: Yes Status: Acute Code(s): J98.4 - OTHER DISORDERS OF LUNG SNOMED Code(s): 925920879 (2) Leukocytosis Narrative/Plan: discussed with the admitting service. This is predominantly neutrophilic and is consistent with the record reaction likely due to the underlying malignancy plus superimposed clinical pneumonia. Current Visit: Yes Status: Acute Code(s): D72.829 - ELEVATED WHITE BLOOD CELL COUNT, UNSPECIFIED SNOMED Code(s): 907392656 Plan: recommendations for the patient to continue follow-up and treatment [facility] the [facility] were discussed with the admitting service. Patient will be treated fo r pneumonia and potentially be discharged on improvement. He was taking Moorcroft 7.5 at home with good efficacy. He can be discharged on the same.
--- NOTE | 2022-11-01 23:11 | P.CONS ---
History of Present Illness - Reason for Consult Consult date: 11/01/22 right upper lobe cavitating lesion Requesting physician: Amador Cano - Chief Complaint right-sided chest pain x weeks - History of Present Illness Patient is a 62-year-old male apparently did have a right upper lobe cavity 2 months for the patient did have a bronchoscopy and biopsy done at [facility] which apparently was nondiagnostic patient subsequently did have a repeat bronchoscopy and biopsy done at [facility] in [place] last week however results are not yet finalized patient is now presenting to the hospital concerning for right-sided chest pain that has been getting worse for the last few days patient described the pain to be sharp almost 10 out of 10 in severity with no radiation with associated cough which has been moderate intensity and is bringing up blood patient also complaining of some low-grade fever on presentation the hospital the patient was afebrile however he subsequently did spike low-grade fever of 99.4 F patient did have mild hypoxemia but not requiring any supplemental oxygen he did have white count 65,000 with a left shift BUN and creatinine has been normal liver enzymes are normal influenza: Epi cells's negative patient did have blood cultures obtained which are currently pending patient did have a CT angiogram of the chest that was negative for PE however did shows large partially cavitating mass involving the right upper lobe right apex and adjacent chest wall pathological fracture on the right first and second ribs and destruction of the right lateral second rib suspect right paratracheal metastatic lymphadenopathy and some airspace opacity concerning for possible postobstructive pneumonitis patient was started on vancomycin and Zosyn infectious disease was consulted for further management of antibiotic therapy Review of Systems Positive point has been mentioned in the HPI rest of the systems are negative Past Medical History Past Medical History: Pneumonia Additional Past Medical History / Comment(s): 08/2022 R upper lung mass, past pneumonia, born with bronchitis, bilateral pneumothorax at separate times treated with chest tubes, anemia, pt denies hx of copd. History of Any Multi-Drug Resistant Organisms: None Reported Past Surgical History: Orthopedic Surgery Additional Past Surgical History / Comment(s): 08/2022 R lung bx at [facility], 10/2022 R lung bx at [facility], R knee arthroscopic surgery, L wrist ganglion cyst removed, L great toe titanium plate, colonoscopies/benign polypectomies. Past Anesthesia/Blood Transfusion Reactions: No Reported Reaction Smoking Status: Former smoker - Past Family History Mother Family Medical History: Vascular Disorder Additional Family Medical History / Comment(s): Mother at the age of 78yrs from ruptured aortic aneurysm. Father Additional Family Medical History / Comment(s): Pt unable to recall specific h ealth issues with his father. Father is alive in his mid 90s Medications and Allergies Home Medications Medication Instructions Recorded Confirmed Type Morphine Sulfate ER [Ms Contin] 15 mg PO Q8H 11/12/22 11/12/22 History Morphine Sulfate ER [Ms Contin] 30 mg PO Q8H 11/12/22 11/12/22 History Morphine Sulfate Ir [MSIR] 15 mg PO Q3H PRN 11/12/22 11/12/22 History Allergies Allergy/AdvReac Type Severity Reaction Status Date / Time No Known Allergies Allergy Verified 11/12/22 11:31 Physical Exam Vitals: Vital Signs Temp Pulse Pulse Resp BP BP Pulse Ox 11/01/22 09:04 96 11/01/22 08:51 96 11/01/22 04:56 99.2 F 102 H 16 121/62 93 L 11/01/22 04:15 90 11/01/22 04:04 87 10/31/22 23:57 91 10/31/22 23:46 94 10/31/22 22:23 98.3 F 111 H 20 153/62 93 L 10/31/22 20:00 16 10/31/22 19:23 95 10/31/22 19:15 96 10/31/22 18:59 98.9 F 97 18 120/58 94 L 10/31/22 14:58 99.3 F 106 H 21 139/75 95 10/31/22 12:55 106 H 22 134/59 95 10/31/22 11:58 99.4 F 111 H 22 121/61 93 L Intake and Output 10/31/22 11/01/22 11/01/22 22:59 06:59 14:59 Output Total 300 Balance -300 Output: Urine 300 Other: Weight 77.111 kg GENERAL DESCRIPTION: Middle-aged male lying in bed, no distress. No tachypnea or accessory muscle of respiration use. HEENT: Shows Pallor , no scleral icterus. Oral mucous membrane is dry. No pharyngeal erythema or thrush NECK: Trachea central, no thyromegaly. LUNGS: Unlabored breathing. course breath sounds on the right side. HEART: S1, S2, regular rate and rhythm. No loud murmur ABDOMEN: Soft, no tenderness , guarding or rigidity, no organomegaly EXTREMITIES: No edema of feet. SKIN: No rash, no masses palpable. NEUROLOGICAL: The patient is awake, alert, oriented x3, mood and affect normal. Results CBC & Chem 7: 11/08/22 07:50 11/08/22 07:50 Labs: Abnormal Lab Results - Last 24 Hours (Table) 10/31/22 10/31/22 10/31/22 Range/Units 10:35 10:35 10:35 WBC 65.7 H* (3.8-10.6) k/uL RBC 3.61 L (4.30-5.90) m/uL Hgb 10.3 L (13.0-17.5) gm/dL Hct 32.3 L (39.0-53.0) % Plt Count 504 H (150-450) k/uL Neutrophils # 62.5 H (1.3-7.7) k/uL Lymphocytes # 0.7 L (1.0-4.8) k/uL Monocytes # 1.2 H (0-1.0) k/uL Basophils # 0.5 H (0-0.2) k/uL ESR 112 H (0-15) mm/hr PT 13.4 H (9.0-12.0) sec INR 1.3 H (<1.2) Sodium 134 L (137-145) mmol/L Potassium 3.3 L (3.5-5.1) mmol/L Chloride (98-107) mmol/L Carbon Dioxide 17 L (22-30) mmol/L Glucose 116 H (74-99) mg/dL Calcium 11.0 H (8.4-10.2) mg/dL Alkaline Phosphatase 619 H (38-126) U/L C-Reactive Protein 30.6 H (<1.0) mg/dL Albumin 3.4 L (3.5-5.0) g/dL 11/01/22 Range/Units 07:51 WBC (3.8-10.6) k/uL RBC (4.30-5.90) m/uL Hgb (13.0-17.5) gm/dL Hct (39.0-53.0) % Plt Count (150-450) k/uL Neutrophils # (1.3-7.7) k/uL Lymphocytes # (1.0-4.8) k/uL Monocytes # (0-1.0) k/uL Basophils # (0-0.2) k/uL ESR (0-15) mm/hr PT (9.0-12.0) sec INR (<1.2) Sodium (137-145) mmol/L Potassium 3.3 L (3.5-5.1) mmol/L Chloride 110 H (98-107) mmol/L Carbon Dioxide 20 L (22-30) mmol/L Glucose (74-99) mg/dL Calcium (8.4-10.2) mg/dL Alkaline Phosphatase (38-126) U/L C-Reactive Protein (<1.0) mg/dL Albumin (3.5-5.0) g/dL Microbiology - Last 24 Hours (Table) 10/31/22 13:31 Gram Stain - Preliminary Sputum Sputum Culture - Preliminary Assessment and Plan (1) Cavitating mass in right upper lung lobe Status: Acute Priority: High Code(s): J98.4 - OTHER DISORDERS OF LUNG SNOMED Code(s): 589146532 Plan: 1patient with right upper lobe cavitary mass high clinic suspicious for malignancy in this patient who did have a bronchoscopy and biopsy done at the [facility] last week with results currently pending, patient presenting to the hospital with worsening right-sided chest pain which is more likely due to his cavitary lung mass with some destruction of the adjacent ribs, underlying postobstructive pneumonia noted on excluded and no need to cover for the polymicrobial jovanny usually associated with this infection. 2 We will try to obtain a sputum for gram stain and culture. 3continue with the Zosyn however discontinue vancomycin to decrease risk of nephrotoxicity We will follow on clinical condition and cultures to further adjust medication if needed Thank you for this consultation will follow this patient along with you Time with Patient: Greater than 30
[2022-11-02] MEDS: PIPERACILLIN-TAZOBACTAM 3.375 GM in SODIUM CHLORIDE 0.9% 100 ML IVPB SCH ×3 (01:26→15:53)
[2022-11-02] MEDS: MORPHINE SULFATE 4 MG/ML SYRINGE IVP PRN ×5 (03:16→20:43)
[2022-11-02] MEDS: IPRATROPIUM-ALBUTEROL 3 ML NEB INHALATION SCH ×5 (03:38→19:34)
[2022-11-02] MEDS ORDERED: VANCOMYCIN TROUGH DUE 1 EACH MISC MISCELLANE ONE (04:00)
[2022-11-02] MEDS: oxyCODONE-APAP 10-325MG 1 EACH TAB PO SCH ×3 (06:12→18:15)
[2022-11-02 07:16] LABS: African American GFR (CKD) >90 (>60 ml/min/1.73 sqM); Non-African American GFR(CKD) >90 (>60 ml/min/1.73 sqM); Potassium 3.3 mmol/L (3.5-5.1)
[2022-11-02] MEDS ORDERED: IPRATROPIUM-ALBUTEROL 3 ML NEB INHALATION PRN (08:19)
[2022-11-02] MEDS: FOLIC ACID 1 MG TAB PO SCH (09:20)
[2022-11-02] MEDS: POTASSIUM CHLORIDE 10 MEQ in WATER FOR INJECTION 1 100ML.BAG IVPB SCH ×4 (09:20→15:51)
--- NOTE | 2022-11-02 11:20 | XR ---
EXAMINATION TYPE: XR chest 1V portable DATE OF EXAM: 11/02/2022 Comparison: CT 10/31/2022 Clinical History: 62-year-old male post chest wall biopsy Findings: Heart normal size. Aorta and pulmonary vasculature within normal limits. No centrally necrotic right apical mass with chest wall invasion and some right rib destruction. No appreciable pneumothorax. Impression: No appreciable pneumothorax. Known right apical, centrally necrotic mass with chest wall invasion and rib destruction.
--- NOTE | 2022-11-02 11:38 | P.PN ---
Subjective Progress Note Date: 11/02/22 This is a 62-year-old white male, heavy smoker, patient has been ill apparently for the last few months. Patient was found to have a right upper lobe cavitary mass, and he was seen at [facility] back in August in he underwent bronchoscopy and biopsy, however the biopsy was nondiagnostic. Patient was seen at the [facility] and he underwent another lung biopsy and this was supposedly done last week. Patient was never made aware of the results of the biopsy, and he was never told whether the findings are findings suggestive of lung cancer or suggestive of infection. Nonetheless the patient has been experiencing intermittent episodes of cough, cough is productive with brownish phlegm, and at times blood-tinged sputum. Patient has been losing weight, he lost over 30 pounds in the last few months. He called his primary care physician in [place], and he recommended that he goes to the nearest hospital. Patient is here today, and CT of the chest showed evidence of large cavitating mass involving the right upper lobe/right apex, with chest wall invasion, pathological fractures of the first and second ribs, and destruction of the right lateral second rib with chest wall invasion and extending beyond the rib margin by 1.6 cm. Patient was also found to have right paratracheal lymp hadenopathy measuring 3.5 cm. Postobstructive pneumonitis was also felt to be likely in the picture. Clinically the patient has been complaining of cough, intermittent fever, chills, and weight loss. WBC count is 65.7 hemoglobin is 10.3. Electrolytes are normal, calcium is elevated at 11.0. Patient was also found to have elevated alkaline phosphatase of 619 considering the findings, patient will be admitted and we were asked to see him on consultation. I did see the patient in the ER, and I am strongly recommending transfer to the [facility] since we have no pathology report on this patient, and now the differential diagnoses includes most likely malignancy/lungs CTA, however the possibility of infection is not entirely ruled out. Or the patient may have a postobstructive pneumonitis no records are available for me to review from the [facility] or from [facility]. However I am strongly suspecting that were dealing with primary malignancy involving the right upper lobe. The patient is seen today 11/01/2022 in follow-up on the regular medical floor. He is awake and alert in no acute distress. Currently resting comfortably in bed. Maintaining O2 saturations in the 90s on room air. Sputum culture pending. Sodium 140. Potassium 3.3. Chloride 110. Bicarb 20. BUN 10. Creatinine 0.80. Bryant virus not detected. Influenza screen negative. He remains on bronchodilators. Antibiotics in the form of a myosin and Zosyn. He has a productive cough of tannish yellow sputum. The patient states he spoke with a nurse from the [facility] who did tell him his pathology was positive for cancer. We are trying to obtain these results. The patient does have right upper lobe chest wall protrusion. He also has a right subclavian enlarged lymph node. Oncology has been consulted. The patient is seen today 11/02/2022 in follow-up on the regular medical floor. He is currently sitting up in bed. Awake and alert in no acute distress. He is still having significant cough and congestion. Sputum culture pending. Blood cultures reveal no growth. Potassium 3.3. Creatinine 0.82. Continued on Zosyn. Records obtained from the [facility] again showed inconclusive biopsy. He is kept nothing by mouth for possible biopsies today. Objective - Vital Signs Vital signs: Vital Signs Temp 98 F 11/02/22 04:59 Pulse 100 11/02/22 11:31 Resp 16 11/02/22 11:05 BP 109/74 11/02/22 11:05 Pulse Ox 95 11/02/22 11:05 FiO2 Intake & Output 11/01/22 11/02/22 11/02/22 18:59 06:59 18:59 Intake Total 1200 Balance 1200 Weight 77.111 kg Intake: Intake, IV Titration 1200 Amount Piperacillin-Tazobactam 3 100 .375 gm In Sodium Chloride 0.9% 100 ml @ 25 mls/hr IVPB Q8HR [facility] Rx# :[id number] Potassium Chloride 10 meq 100 In Water For Injection 1 100ml.bag @ 100 mls/hr IVPB Q1HR [facility] Rx#: [id number] Sodium Chloride 0.9% 1, 1000 000 ml @ 100 mls/hr IV . Q10H [facility] Rx#:[id number] Other: # Voids 2 3 - Exam GENERAL EXAM: Alert, 62-year-old male, on room air, fairly comfortable in no apparent distress. HEAD: Normocephalic. EYES: Normal reaction of pupils, equal size. NOSE: Clear with pink turbinates. THROAT: No erythema or exudates. NECK: Enlarged right supraclavicular lymph node, no JVD. CHEST: There is tumor protruding into the right apical chest below the clavicle. LUNGS: Equal air entry with scattered rhonchi more so on the right lung. CVS: S1 and S2 normal with no audible murmur, regular rhythm. ABDOMEN: No hepatosplenomegaly, normal bowel sounds, no guarding or rigidity. SPINE: No scoliosis or deformity SKIN: No rashes CENTRAL NERVOUS SYSTEM: No focal deficits, tone is normal in all 4 extremities. EXTREMITIES: There is no peripheral edema. No clubbing, no cyanosis. Periphera l pulses are intact. - Labs CBC & Chem 7: 11/01/22 07:51 11/02/22 06:24 Labs: Abnormal Lab Results - Last 24 Hours (Table) 11/01/22 11/01/22 11/01/22 Range/Units 07:51 07:51 07:51 Potassium (3.5-5.1) mmol/L Iron 16 L (65-175) ug/dL TIBC 141 L (228-460) ug/dL % Saturation 11.10 L (15.00-50.00) Transferrin 101.0 L (204.0-354.0) mg/dL Ferritin 1109.0 H (22.0-322.0) ng/mL Vitamin B12 2189.0 H (200.0-944.0) pg/mL Folate <2.00 L (4.40-31.00) ng/mL Procalcitonin 0.65 H (0.02-0.09) ng/mL 11/02/22 Range/Units 06:24 Potassium 3.3 L (3.5-5.1) mmol/L Iron (65-175) ug/dL TIBC (228-460) ug/dL % Saturation (15.00-50.00) Transferrin (204.0-354.0) mg/dL Ferritin (22.0-322.0) ng/mL Vitamin B12 (200.0-944.0) pg/mL Folate (4.40-31.00) ng/mL Procalcitonin (0.02-0.09) ng/mL Microbiology - Last 24 Hours (Table) 11/30/22 13:31 Gram Stain - Final Sputum Sputum Culture - Final 10/31/22 12:40 Blood Culture - Preliminary Blood No Growth after 24 hours 10/31/22 12:40 Blood Culture - Preliminary Blood No Growth after 24 hours Assessment and Plan Assessment: Large right upper lobe mass with cavitation and possible postobstructive pneumonitis. Differential diagnoses includes bronchogenic carcinoma and/or extensive necrotizing pneumonia involving the right upper lobe. Or possibly both. Computed tomography scan revealed enlarged right paratracheal node at 3.5 cm. Enlarged right hilar node at 2.1 cm. There is a right superior sulcus mass centered at the right apex but involving the chest wall as well. There is pathologic fracture of the right lateral first rib and right anterolateral second rib. Destruction of a segment of the right lateral second rib and a small portion of the right lateral third rib. Extension be on the rib margin by 1.6 cm beyond the intercostal musculature. Extensive internal areas of cavitation are present. Mass measures 12.6 cm x 11.7 cm. Some airspace opacity in the lateral right upper lobe. The remaining stable and on room air currently. Sputum culture pending. Pro-calcitonin 0.65. Remains on Zosyn. Leukocytosis secondary to above, possible leukemoid reaction Weight loss secondary to above Acute exacerbation of COPD Tobacco dependence syndrome Status post bronchoscopy 2, one done at [facility] and one done at the [facility], results are inconclusive Plan: The patient was seen and evaluated Labs and medications reviewed Continue Zosyn Sputum culture pending Currently stable and on room air Results from pathology from the [facility] reveals necrotic tissue, inconclusive We did speak with interventional radiology today who will plan for a CT-guided biopsy of the right chest mass The patient verbalizes understanding and is agreeable to the plan We will continue to follow I have personally seen and examined the patient, performed the documentation and the assessment and plan as written. Number of minutes spent on the visit: 10.
--- NOTE | 2022-11-02 12:06 | US ---
EXAM: Ultrasound-guided targeted biopsy of right chest wall mass. DATE OF SERVICE: November 02, 2022 REASON FOR EXAM: 62-year-old male with right chest wall mass. RADIOLOGIST: Dr. Hernandes ANESTHESIA: Local Lidocaine ESTIMATED BLOOD LOSS: Minimal COMPLICATIONS: None SPECIMENS: Four 18 gauge core biopsies were obtained. Samples were placed in saline and in formalin and delivered to the pathology department. TECHNIQUE and FINDINGS: I verify that I have discussed the potential benefits, risks, and side effects regarding this treatme nt/procedure, the likelihood of the patient achieving his or her goals, and the potential problems th at might occur during recuperation. I verify that I have explained the alternatives to the patient i ncluding the risks, benefits, and side effects related to the alternatives and the risks related to n ot receiving the operation/procedure/treatment. The patient/surrogate decision maker has had an oppo rtunity to ask and have questions answered. I have secured the patient's or the surrogate decision m aline's consent prior to the operation/procedure/treatment. Patient was placed supine on ultrasound table and the right upper chest wall was prepped and draped i n usual sterile fashion. 1% lidocaine was infused into the skin and subcutaneous soft tissues to achi berenice local anesthesia. Sonographic evaluation demonstrates a well circumscribed hypoechoic mass lesion within the deep chest wall. Under sonographic guidance an 17-gauge trocar needle was advanced down to the surface of the mass. An 18-gauge core biopsy sample was obtained and placed in saline. Another three 18-gauge core biopsy samples were obtained. Specimens were placed in formalin and sent to path ology. The needle was removed. Hemostasis was achieved with manual compression pressure. Sterile d ressings were applied. The patient tolerated the procedure well with no immediate post procedure com plications. IMPRESSION: Technically successful uncomplicated targeted core right chest wall mass biopsy.
--- NOTE | 2022-11-02 13:04 | P.PN ---
Subjective Progress Note Date: 11/02/22 Patient is a 62-year-old male with past medical history of right lung mass and 28-xiaz-sctn smoking history presents the ED for right-sided chest pain, cough productive of brown sputum, hemoptysis and shortness of breath. Patient gets all of [facility] from [facility]. He underwent bronchoscopy and biopsy in August 2022 for right lung mass. Pathology was nondiagnostic at that time. Patient reports undergoing a second bronchoscopy and lung biopsy last week with the [facility] in [place]. He is unaware of the pathology results from this biopsy. He reports worsening cough productive of brown sputum and blood. He reports exertional shortness of breath. He reports right-sided chest pain worsened with deep inspiration and cough. Of note, patient also reports 30 pound weight loss since August, unintentional. He also reports fever and chills. He denies any headache, lower extremity edema, nausea or vomiting, palpitations, changes in urination or bowel habits. He denies any dizziness, numbness/w eakness/tingling of the extremities. In the ED, he was noted to be tachycardic with heart rate in the 120s. Vital signs were otherwise stable. CBC showed WBC count of 65.7 which was lymphocytic in nature with hemoglobin of 10.3 and platelet count of 504. INR was 1.3. CMP showed sodium 134, potassium of 3.3, bicarb of 17, glucose 116, calcium of 11, alkaline phosphatase of 619. Troponin was less than 0.012, EKG showing sinus tachycardia. Lactic acid negative. CRP was 30.6. ESR was 112. CTA chest showed no PE, large cavitary mass involving the right upper lobe, right apex and adjacent chest wall measuring 12.6 cm with pathologic fractures of the right first and second rubs, right paratracheal metastatic lymphadenopathy measuring 3.5 cm, airspace opacity lateral right upper lobe possible postobstructive pneumonitis. Initially, plan was to transfer the patient to [facility] in [place]. Due to lack of bed availability, patient has been admitted for further management of symptoms. Patient was seen and examined. He continues to report chest pain with cough. Coughing up brown sputum. Plans for CT-guided biopsy of the right chest mass. General: non toxic, moderate distress, appears at stated age Derm: warm, dry Head: atraumatic, normocephalic, symmetric Eyes: EOMI, no lid lag, anicteric sclera Mouth: no lip lesion, mucus membranes moist Cardiovascular: Tachycardic, no murmur, positive posterior tibial pulse bilateral, Lungs: Expiratory wheezing bilateral, rhonchi noted in all lung alvarado , no accessory muscle use Abdominal: soft, nontender to palpation, no guarding, no appreciable organomegaly Ext: no gross muscle atrophy, no edema, no contractures Neuro: no focal neuro deficits Psych: Alert, oriented, appropriate affect #Right upper lobe mass #Sepsis related to hospital-acquired pneumonia #Hemoptysis #Right-sided chest pain #Leukocytosis His leukocytosis is neutrophilic predominant. He also meets sepsis criteria with leukocytosis, tachycadia and positive source of infection. Concern for bronchogenic carcinoma with superimposed pneumonia. ESR, CRP, procalcitonin elevated. Influenza, COVID 19 negative. Continue Zosyn for broad spectrum antibiotic coverage, Vancomycin discontinued by ID. Pain control with Morphine PRN and started on scheduled Percocet. DuoNeb PRN for SOB/wheezing. Telemetry monitoring. DC IVF and encourage hydration by mouth. Follow blood culture, sputum culture [facility] [place] [facility]. Plans for CT guided biopsy of the right chest mass by IR today. Pulmonology, Oncology and Infectious disease on board. #Normocytic anemia Iron studies show anemia of chronic disease. Replace folic acid. Repeat CBC tomorrow. #Hypokalemia Replace and repeat BMP tomorrow. #Metabolic acidosis Likely due to underlying malignancy. Lactic acid negative. Continue IV hydration as above. #History of tobacco abuse Patient has quit. Patient names his decision maker if he cant make decisions for himself. Patient would like to be FULL CODE. Objective - Vital Signs Vital signs: Vital Signs Temp 98 F 11/02/22 04:59 Pulse 100 11/02/22 11:31 Resp 16 11/02/22 11:05 BP 109/74 11/02/22 11:05 Pulse Ox 95 11/02/22 11:05 FiO2 Intake & Output 11/01/22 11/02/22 11/02/22 18:59 06:59 18:59 Intake Total 1200 Balance 1200 Weight 77.111 kg Intake: Intake, IV Titration 1200 Amount Piperacillin-Tazobactam 3 100 .375 gm In Sodium Chloride 0.9% 100 ml @ 25 mls/hr IVPB Q8HR [facility] Rx# :[id number] Potassium Chloride 10 meq 100 In Water For Injection 1 100ml.bag @ 100 mls/hr IVPB Q1HR [facility] Rx#: [id number] Sodium Chloride 0.9% 1, 1000 000 ml @ 100 mls/hr IV . Q10H [facility] Rx#:[id number] Other: # Voids 2 3 - Labs CBC & Chem 7: 11/01/22 07:51 11/02/22 06:24 Labs: Abnormal Lab Results - Last 24 Hours (Table) 11/01/22 11/01/22 11/01/22 Range/Units 07:51 07:51 07:51 Potassium (3.5-5.1) mmol/L Iron 16 L (65-175) ug/dL TIBC 141 L (228-460) ug/dL % Saturation 11.10 L (15.00-50.00) Transferrin 101.0 L (204.0-354.0) mg/dL Ferritin 1109.0 H (22.0-322.0) ng/mL Vitamin B12 2189.0 H (200.0-944.0) pg/mL Folate <2.00 L (4.40-31.00) ng/mL Procalcitonin 0.65 H (0.02-0.09) ng/mL 11/02/22 Range/Units 06:24 Potassium 3.3 L (3.5-5.1) mmol/L Iron (65-175) ug/dL TIBC (228-460) ug/dL % Saturation (15.00-50.00) Transferrin (204.0-354.0) mg/dL Ferritin (22.0-322.0) ng/mL Vitamin B12 (200.0-944.0) pg/mL Folate (4.40-31.00) ng/mL Procalcitonin (0.02-0.09) ng/mL Microbiology - Last 24 Hours (Table) 10/31/22 13:31 Gram Stain - Final Sputum Sputum Culture - Final 10/31/22 12:40 Blood Culture - Preliminary Blood No Growth after 24 hours 10/31/22 12:40 Blood Culture - Preliminary Blood No Growth after 24 hours
[2022-11-02 13:23] VITALS: BMI 23.7
--- NOTE | 2022-11-02 18:05 | P.PN ---
Subjective Progress Note Date: 11/02/22 The patient had a repeat core biopsy from the right upper lobe mass invading into the chest wall. He tolerated that well. Pain is currently controlled. He denies major change in range of motion of the right upper extremity. Respiratory status is stable. Objective - Vital Signs Vital signs: Vital Signs Temp 98 F 11/02/22 04:59 Pulse 100 11/02/22 15:43 Resp 16 11/02/22 11:05 BP 109/74 11/02/22 11:05 Pulse Ox 95 11/02/22 11:05 FiO2 Intake & Output 11/01/22 11/02/22 11/02/22 18:59 06:59 18:59 Intake Total 1200 Balance 1200 Weight 77.111 kg 77.111 kg Intake: Intake, IV Titration 1200 Amount Piperacillin-Tazobactam 3 100 .375 gm In Sodium Chloride 0.9% 100 ml @ 25 mls/hr IVPB Q8HR [facility] Rx# :[id number] Potassium Chloride 10 meq 100 In Water For Injection 1 100ml.bag @ 100 mls/hr IVPB Q1HR [facility] Rx#: [id number] Sodium Chloride 0.9% 1, 1000 000 ml @ 100 mls/hr IV . Q10H [facility] Rx#:[id number] Other: # Voids 2 3 - Constitutional General appearance: Present: no acute distress - EENT Eyes: Present: EOMI ENT: Present: hearing grossly normal, normal oropharynx - Respiratory Respiratory: right: diminished - Cardiovascular Rhythm: regular Heart sounds: normal: S1, S2 - Gastrointestinal General gastrointestinal: Present: normal bowel sounds, soft - Integumentary Integumentary: Present: normal - Neurologic Neurologic: Present: CNII-XII intact - Musculoskeletal Musculoskeletal Comment(s): Chest wall fullness right upper, and adjacent right axillary areas, with tenderness on palpation Musculoskeletal: Present: generalized weakness, strength equal bilaterally - Psychiatric Psychiatric: Present: A&O x's 3, appropriate affect - Labs CBC & Chem 7: 11/01/22 07:51 11/02/22 06:24 Labs: Abnormal Lab Results - Last 24 Hours (Table) 11/01/22 11/01/22 11/02/22 Range/Units 07:51 07:51 06:24 Potassium 3.3 L (3.5-5.1) mmol/L Iron 16 L (65-175) ug/dL TIBC 141 L (228-460) ug/dL % Saturation 11.10 L (15.00-50.00) Transferrin 101.0 L (204.0-354.0) mg/dL Ferritin 1109.0 H (22.0-322.0) ng/mL Vitamin B12 2189.0 H (200.0-944.0) pg/mL Folate <2.00 L (4.40-31.00) ng/mL Microbiology - Last 24 Hours (Table) 10/31/22 12:40 Blood Culture - Preliminary Blood No Growth after 48 hours 10/31/22 12:40 Blood Culture - Preliminary Blood No Growth after 48 hours 10/31/22 13:31 Gram Stain - Final Sputum Sputum Culture - Final Assessment and Plan (1) Cavitating mass in right upper lung lobe Narrative/Plan: Records were available now from the [facility] in [place], and were reviewed. The patient's repeat biopsy came back nondiagnostic showing only necrotic tissue. He therefore underwent a repeat core biopsy today with results pending. - The patient has had CT of the chest abdomen and pelvis, showing no evidence of distant disease. However did not see any report of a PET scan or MRI which the patient stated had been done. Current Visit: Yes Status: Acute Code(s): J98.4 - OTHER DISORDERS OF LUNG SNOMED Code(s): 889700703 (2) Leukocytosis Current Visit: Yes Status: Acute Code(s): D72.829 - ELEVATED WHITE BLOOD CELL COUNT, UNSPECIFIED SNOMED Code(s): 811196943 Plan: I had a long discussion with the patient's and the patient, as he wanted to transfer her care here. His stated that there have applied for Medicaid and feels that they can therefore have coverage to transfer care locally. This will need to be verified through the office. If there is no coverage issue, the patient can be treated locally otherwise it would be more optimal for him to follow up at the [place] where he is already established and has thoracic oncology clinic appointment upcoming - If the patient can be treated locally, we will check with the [place] if he indeed has had a PET scan or MRI done. If not this will need to be done for proper staging. - Radiation oncology, Dr. Schneider was also contacted and case discussed with him. He will evaluate the patient early next week. If the patient is to be treated locally, he will need definitive concurrent chemoradiation if he has locally advanced disease, or at least palliative radiation to the chest wall mass if he is found to have distant disease on PET scan.
[2022-11-02] MEDS: ESCITALOPRAM 10 MG TAB PO SCH (20:28)
[2022-11-02] MEDS: FERROUS SULFATE 325 MG TAB PO SCH (20:28)
[2022-11-03] MEDS: POTASSIUM CHLORIDE ER 20 MEQ TAB.ER PO SCH ×3 (00:27→03:07)
[2022-11-03] MEDS: MORPHINE SULFATE 4 MG/ML SYRINGE IVP PRN ×6 (00:27→20:51)
[2022-11-03] MEDS: PIPERACILLIN-TAZOBACTAM 3.375 GM in SODIUM CHLORIDE 0.9% 100 ML IVPB SCH ×3 (00:28→17:16)
[2022-11-03] MEDS: oxyCODONE-APAP 10-325MG 1 EACH TAB PO SCH ×4 (00:41→17:15)
[2022-11-03] MEDS: ACETAMINOPHEN TAB 325 MG TAB PO PRN (03:07)
[2022-11-03] MEDS: IPRATROPIUM-ALBUTEROL 3 ML NEB INHALATION SCH ×4 (07:20→20:15)
[2022-11-03] MEDS: POTASSIUM CHLORIDE 10 MEQ in WATER FOR INJECTION 1 100ML.BAG IVPB SCH ×4 (08:56→16:33)
[2022-11-03] MEDS: FOLIC ACID 1 MG TAB PO SCH (08:57)
--- NOTE | 2022-11-03 11:33 | P.PN ---
Subjective Progress Note Date: 11/03/22 This is a 62-year-old white male, heavy smoker, patient has been ill apparently for the last few months. Patient was found to have a right upper lobe cavitary mass, and he was seen at [facility] back in August in he underwent bronchoscopy and biopsy, however the biopsy was nondiagnostic. Patient was seen at the [place] and he underwent another lung biopsy and this was supposedly done last week. Patient was never made aware of the results of the biopsy, and he was never told whether the findings are findings suggestive of lung cancer or suggestive of infection. Nonetheless the patient has been experiencing intermittent episodes of cough, cough is productive with brownish phlegm, and at times blood-tinged sputum. Patient has been losing weight, he lost over 30 pounds in the last few months. He called his primary care physician in [place], and he recommended that he goes to the nearest hospital. Patient is here today, and CT of the chest showed evidence of large cavitating mass involving the right upper lobe/right apex, with chest wall invasion, pathological fractures of the first and second ribs, and destruction of the right lateral second rib with chest wall invasion and extending beyond the rib margin by 1.6 cm. Patient was also found to have right paratracheal lymp hadenopathy measuring 3.5 cm. Postobstructive pneumonitis was also felt to be likely in the picture. Clinically the patient has been complaining of cough, intermittent fever, chills, and weight loss. WBC count is 65.7 hemoglobin is 10.3. Electrolytes are normal, calcium is elevated at 11.0. Patient was also found to have elevated alkaline phosphatase of 619 considering the findings, patient will be admitted and we were asked to see him on consultation. I did see the patient in the ER, and I am strongly recommending transfer to the [place] [facility] since we have no pathology report on this patient, and now the differential diagnoses includes most likely malignancy/lungs CTA, however the possibility of infection is not entirely ruled out. Or the patient may have a postobstructive pneumonitis no records are available for me to review from the [place] or from [facility]. However I am strongly suspecting that were dealing with primary malignancy involving the right upper lobe. The patient is seen today 11/01/2022 in follow-up on the regular medical floor. He is awake and alert in no acute distress. Currently resting comfortably in bed. Maintaining O2 saturations in the 90s on room air. Sputum culture pending. Sodium 140. Potassium 3.3. Chloride 110. Bicarb 20. BUN 10. Creatinine 0.80. Bryant virus not detected. Influenza screen negative. He remains on bronchodilators. Antibiotics in the form of a myosin and Zosyn. He has a productive cough of tannish yellow sputum. The patient states he spoke with a nurse from the [facility] who did tell him his pathology was positive for cancer. We are trying to obtain these results. The patient does have right upper lobe chest wall protrusion. He also has a right subclavian enlarged lymph node. Oncology has been consulted. The patient is seen today 11/02/2022 in follow-up on the regular medical floor. He is currently sitting up in bed. Awake and alert in no acute distress. He is still having significant cough and congestion. Sputum culture pending. Blood cultures reveal no growth. Potassium 3.3. Creatinine 0.82. Continued on Zosyn. Records obtained from the [facility] again showed inconclusive biopsy. He is kept nothing by mouth for possible biopsies today. The patient is seen today 11/03/2022 in follow-up on the regular medical floor. He is awake and alert in no acute distress. He is having ongoing discomfort in the right upper chest area secondary to the and surrounding tissue mass that is invading into the ribs and surrounding tissue. He did undergo a CT-guided biopsy yesterday. Pathology is pending. Medical oncology and radiation oncology are on the case. Awaiting further information from the [facility] in [place]. He is currently on Zosyn and bronchodilators. Morphine and Percocet for adequate pain control. Objective - Vital Signs Vital signs: Vital Signs Temp 98.3 F 11/03/22 05:09 Pulse 97 11/03/22 11:17 Resp 16 11/03/22 05:09 BP 125/65 11/03/22 05:09 Pulse Ox 95 11/03/22 05:09 FiO2 Intake & Output 11/02/22 11/03/22 11/03/22 18:59 06:59 18:59 Intake Total 590 Output Total 500 Balance 90 Weight 77.111 kg Intake: Oral 590 Output: Urine 500 Other: # Voids 2 1 - Exam GENERAL EXAM: Alert, pleasant 62-year-old male, on room air, fairly comfortable in no apparent distress. HEAD: Normocephalic. EYES: Normal reaction of pupils, equal size. NOSE: Clear with pink turbinates. THROAT: No erythema or exudates. NECK: Enlarged right supraclavicular lymph node, no JVD. CHEST: There is tumor protruding into the right apical chest below the clavicle. LUNGS: Equal air entry with scattered rhonchi more so on the right lung. CVS: S1 and S2 normal with no audible murmur, regular rhythm. ABDOMEN: No hepatosplenomegaly, normal bowel sounds, no guarding or rigidity. SPINE: No scoliosis or deformity SKIN: No rashes CENTRAL NERVOUS SYSTEM: No focal deficits, tone is normal in all 4 extremities. EXTREMITIES: There is no peripheral edema. No clubbing, no cyanosis. Periphe ral pulses are intact. - Labs CBC & Chem 7: 11/01/22 07:51 11/03/22 07:46 Labs: Abnormal Lab Results - Last 24 Hours (Table) 11/02/22 Range/Units 22:20 Potassium 2.9 L (3.5-5.1) mmol/L Microbiology - Last 24 Hours (Table) 11/02/22 11:00 Gram Stain - Preliminary Chest Tissue Culture - Preliminary 11/02/22 11:00 Anaerobic Culture - Preliminary Chest 10/31/22 12:40 Blood Culture - Preliminary Blood No Growth after 48 hours 10/31/22 12:40 Blood Culture - Preliminary Blood No Growth after 48 hours 10/31/22 13:31 Gram Stain - Final Sputum Sputum Culture - Final Assessment and Plan Assessment: Large right upper lobe mass with cavitation and possible postobstructive pneumonitis. Differential diagnoses includes bronchogenic carcinoma and/or extensive necrotizing pneumonia involving the right upper lobe. Or possibly both. Computed tomography scan revealed enlarged right paratracheal node at 3.5 cm. Enlarged right hilar node at 2.1 cm. There is a right superior sulcus mass centered at the right apex but involving the chest wall as well. There is pathologic fracture of the right lateral first rib and right anterolateral second rib. Destruction of a segment of the right lateral second rib and a sma ll portion of the right lateral third rib. Extension be on the rib margin by 1.6 cm beyond the intercostal musculature. Extensive internal areas of cavitation are present. Mass measures 12.6 cm x 11.7 cm. Some airspace opacity in the lateral right upper lobe. The remaining stable and on room air currently. Sputum culture pending. Pro-calcitonin 0.65. Remains on Zosyn. The patient did undergo a CT-guided biopsy of the mass on 11/03/2022. Pathology pending. Leukocytosis secondary to above, possible leukemoid reaction Weight loss secondary to above Acute exacerbation of COPD Tobacco dependence syndrome Status post bronchoscopy 2, one done at [facility] and one done at the [place], results are inconclusive Plan: The patient was seen and evaluated Labs and medications reviewed Continue Zosyn Sputum culture pending Currently stable and on room air Awaiting pathology results from biopsy 11/03/2022 We will continue to follow I have personally seen and examined the patient, performed the documentation and the assessment and plan as written. Number of minutes spent on the visit: 10.
--- NOTE | 2022-11-03 14:21 | P.PN ---
Subjective Progress Note Date: 11/03/22 Patient is a 62-year-old male with past medical history of right lung mass and [id number] smoking history presents the ED for right-sided chest pain, cough productive of brown sputum, hemoptysis and shortness of breath. Patient gets all of his care from the OR. He underwent bronchoscopy and biopsy in August 2022 for right lung mass. Pathology was nondiagnostic at that time. Patient reports undergoing a second bronchoscopy and lung biopsy last week with the OR in [place]. He is unaware of the pathology results from this biopsy. He reports worsening cough productive of brown sputum and blood. He reports exertional shortness of breath. He reports right-sided chest pain worsened with deep inspiration and cough. Of note, patient also reports 30 pound weight loss since August, unintentional. He also reports fever and chills. He denies any headache, lower extremity edema, nausea or vomiting, palpitations, changes in urination or bowel habits. He denies any dizziness, numbness/w eakness/tingling of the extremities. In the ED, he was noted to be tachycardic with heart rate in the 120s. Vital signs were otherwise stable. CBC showed WBC count of 65.7 which was lymphocytic in nature with hemoglobin of 10.3 and platelet count of 504. INR was 1.3. CMP showed sodium 134, potassium of 3.3, bicarb of 17, glucose 116, calcium of 11, alkaline phosphatase of 619. Troponin was less than 0.012, EKG showing sinus tachycardia. Lactic acid negative. CRP was 30.6. ESR was 112. CTA chest showed no PE, large cavitary mass involving the right upper lobe, right apex and adjacent chest wall measuring 12.6 cm with pathologic fractures of the right first and second rubs, right paratracheal metastatic lymphadenopathy measuring 3.5 cm, airspace opacity lateral right upper lobe possible postobstructive pneumonitis. Initially, plan was to transfer the patient to OR in [place]. Due to lack of bed availability, patient has been admitted for further management of symptoms. Patient underwent CT guided biopsy of the right chest mass. Patient was seen and examined. He continues to report chest pain with cough. Coughing up brown sputum. General: toxic, moderate distress, appears at stated age Derm: warm, dry Head: atraumatic, normocephalic, symmetric Eyes: EOMI, no lid lag, anicteric sclera Mouth: no lip lesion, mucus membranes moist Cardiovascular: Tachycardic, no murmur, positive posterior tibial pulse bilateral, Lungs: Expiratory wheezing bilateral, rhonchi noted in all lung alvarado , no accessory muscle use Abdominal: soft, nontender to palpation, no guarding, no appreciable organomegaly Ext: no gross muscle atrophy, no edema, no contractures Neuro: no focal neuro deficits Psych: Alert, oriented, appropriate affect #Right upper lobe mass #Sepsis related to hospital-acquired pneumonia #Hemoptysis #Right-sided chest pain #Leukocytosis His leukocytosis is neutrophilic predominant. He also meets sepsis criteria with leukocytosis, tachycadia and positive source of infection. Concern for bronchogenic carcinoma with superimposed pneumonia. ESR, CRP, procalcitonin elevated. Influenza, COVID 19 negative. Continue Zosyn for broad spectrum antibiotic coverage, Vancomycin discontinued by ID. Pain control with Morphine PRN and started on scheduled Percocet. DuoNeb PRN for SOB/wheezing. Telemetry monitoring. DC IVF and encourage hydration by mouth. Follow blood culture, sputum culture Pathology results from OR in [place] inconclusive. Underwent CT guided biopsy of the right chest mass, pathology pending. Pulmonology, Oncology and Infectious disease on board. #Normocytic anemia Iron studies show anemia of chronic disease. Replace folic acid. Repeat CBC tomorrow. #Hypokalemia Replace and repeat BMP tomorrow. #Metabolic acidosis Likely due to underlying malignancy. Lactic acid negative. Continue IV hydration as above. #History of tobacco abuse Patient has quit. Patient names his decision maker if he cant make decisions for himself. Patient would like to be FULL CODE. Case discussed with nursing and the . Objective - Vital Signs Vital signs: Vital Signs Temp 97.3 F L 11/03/22 11:40 Pulse 109 H 11/03/22 11:40 Resp 20 11/03/22 11:40 BP 123/56 11/03/22 11:40 Pulse Ox 96 11/03/22 11:40 FiO2 Intake & Output 11/02/22 11/03/22 11/03/22 18:59 06:59 18:59 Intake Total 590 Output Total 500 Balance 90 Weight 77.111 kg Intake: Oral 590 Output: Urine 500 Other: # Voids 2 1 - Labs CBC & Chem 7: 11/01/22 07:51 11/03/22 07:46 Labs: Abnormal Lab Results - Last 24 Hours (Table) 11/02/22 Range/Units 22:20 Potassium 2.9 L (3.5-5.1) mmol/L Microbiology - Last 24 Hours (Table) 11/02/22 11:00 Gram Stain - Preliminary Chest Tissue Culture - Preliminary 11/02/22 11:00 Anaerobic Culture - Preliminary Chest 10/31/22 12:40 Blood Culture - Preliminary Blood No Growth after 48 hours 10/31/22 12:40 Blood Culture - Preliminary Blood No Growth after 48 hours 10/31/22 13:31 Gram Stain - Final Sputum Sputum Culture - Final
[2022-11-03] MEDS: FERROUS SULFATE 325 MG TAB PO SCH (20:51)
[2022-11-03] MEDS: ESCITALOPRAM 10 MG TAB PO SCH (20:51)
[2022-11-04] MEDS: oxyCODONE-APAP 10-325MG 1 EACH TAB PO SCH ×6 (00:01→23:50)
[2022-11-04] MEDS: PIPERACILLIN-TAZOBACTAM 3.375 GM in SODIUM CHLORIDE 0.9% 100 ML IVPB SCH ×4 (00:03→23:51)
--- NOTE | 2022-11-04 00:46 | P.PN ---
Subjective Progress Note Date: 11/02/22 Principal diagnosis: Cavitating pneumonia Patient is a 62 year old male with a recent diagnosis of right upper lobe cavitating lesion has been biopsies 2 presenting to the hospital with increasing pain to the right side of the chest CT chest did shows large partially cavitating mass involving the right upper With pathological fracture of the right first and second rib and there is concern for possible pneumonia. On today's evaluation that is 11/02/2022, the patient remains to be afebrile, the patient is breathing comfortably on room air, still complaining of right- sided chest with some control of the pain medication no nausea no vomiting no abdominal pain no diarrhea Objective - Vital Signs Vital signs: Vital Signs Temp 98 F 11/02/22 04:59 Pulse 100 11/02/22 11:31 Resp 16 11/02/22 11:05 BP 109/74 11/02/22 11:05 Pulse Ox 95 11/02/22 11:05 FiO2 Intake & Output 11/01/22 11/02/22 11/02/22 18:59 06:59 18:59 Intake Total 1200 Balance 1200 Weight 77.111 kg 77.111 kg Intake: Intake, IV Titration 1200 Amount Piperacillin-Tazobactam 3 100 .375 gm In Sodium Chloride 0.9% 100 ml @ 25 mls/hr IVPB Q8HR [facility] Rx# :[id number] Potassium Chloride 10 meq 100 In Water For Injection 1 100ml.bag @ 100 mls/hr IVPB Q1HR [facility] Rx#: [id number] Sodium Chloride 0.9% 1, 1000 000 ml @ 100 mls/hr IV . Q10H [facility] Rx#:[id number] Other: # Voids 2 3 - Exam GENERAL DESCRIPTION: A middle-aged male lying in bed in no distress RESPIRATORY SYSTEM: Unlabored breathing , decreased breath sounds at bases HEART: S1 S2 regular rate and rhythm , ABDOMEN: Soft , no tenderness EXTREMITIES: No edema feet - Labs CBC & Chem 7: 11/01/22 07:51 11/03/22 07:46 Labs: Abnormal Lab Results - Last 24 Hours (Table) 11/01/22 11/01/22 11/01/22 Range/Units 07:51 07:51 07:51 Potassium (3.5-5.1) mmol/L Iron 16 L (65-175) ug/dL TIBC 141 L (228-460) ug/dL % Saturation 11.10 L (15.00-50.00) Transferrin 101.0 L (204.0-354.0) mg/dL Ferritin 1109.0 H (22.0-322.0) ng/mL Vitamin B12 2189.0 H (200.0-944.0) pg/mL Folate <2.00 L (4.40-31.00) ng/mL Procalcitonin 0.65 H (0.02-0.09) ng/mL 11/02/22 Range/Units 06:24 Potassium 3.3 L (3.5-5.1) mmol/L Iron (65-175) ug/dL TIBC (228-460) ug/dL % Saturation (15.00-50.00) Transferrin (204.0-354.0) mg/dL Ferritin (22.0-322.0) ng/mL Vitamin B12 (200.0-944.0) pg/mL Folate (4.40-31.00) ng/mL Procalcitonin (0.02-0.09) ng/mL Microbiology - Last 24 Hours (Table) 10/31/22 13:31 Gram Stain - Final Sputum Sputum Culture - Final 10/31/22 12:40 Blood Culture - Preliminary Blood No Growth after 24 hours 10/31/22 12:40 Blood Culture - Preliminary Blood No Growth after 24 hours Assessment and Plan (1) Cavitating mass in right upper lung lobe Current Visit: Yes Status: Acute Code(s): J98.4 - OTHER DISORDERS OF LUNG SNOMED Code(s): 115572989 (2) Leukocytosis Current Visit: Yes Status: Acute Code(s): D72.829 - ELEVATED WHITE BLOOD CELL COUNT, UNSPECIFIED SNOMED Code(s): 137723620 Plan: 1patient with right upper lobe cavitary mass high clinic suspicious for malignancy in this patient who did have a bronchoscopy and biopsy done at the [facility] last week with results currently pending, patient presenting to the hospital with worsening right-sided chest pain which is more likely due to his cavitary lung mass with some destruction of the adjacent ribs, underlying postobstructive pneumonia not entirely excluded and will need to cover for the polymicrobial jovanny usually associated with this infection. 2 We will try to obtain a sputum for gram stain and culture. 3patient to continue with the Zosyn and monitor clinical course closely
--- NOTE | 2022-11-04 00:48 | P.PN ---
Subjective Progress Note Date: 11/03/22 Principal diagnosis: Cavitating pneumonia Patient is a 62 year old male with a recent diagnosis of right upper lobe cavitating lesion has been biopsies 2 presenting to the hospital with increasing pain to the right side of the chest CT chest did shows large partially cavitating mass involving the right upper With pathological fracture of the right first and second rib and there is concern for possible pneumonia. On today's evaluation that is 11/03/2022, the patient continues to be afebrile, the patient is breathing comfortably on room air, the patient is complaining of right-sided chest pain with partial control with the current pain medication no nausea no vomiting no abdominal pain no diarrhea Objective - Vital Signs Vital signs: Vital Signs Temp 97.3 F L 11/03/22 11:40 Pulse 109 H 11/03/22 11:40 Resp 20 11/03/22 11:40 BP 123/56 11/03/22 11:40 Pulse Ox 96 11/03/22 11:40 FiO2 Intake & Output 11/02/22 11/03/22 11/03/22 18:59 06:59 18:59 Intake Total 590 Output Total 500 Balance 90 Weight 77.111 kg Intake: Oral 590 Output: Urine 500 Other: # Voids 2 1 - Exam GENERAL DESCRIPTION: A middle-aged male lying in bed in no distress RESPIRATORY SYSTEM: Unlabored breathing , decreased breath sounds at bases HEART: S1 S2 regular rate and rhythm , ABDOMEN: Soft , no tenderness EXTREMITIES: No edema feet - Labs CBC & Chem 7: 11/01/22 07:51 11/03/22 07:46 Labs: Abnormal Lab Results - Last 24 Hours (Table) 11/02/22 Range/Units 22:20 Potassium 2.9 L (3.5-5.1) mmol/L Microbiology - Last 24 Hours (Table) 11/02/22 11:00 Gram Stain - Preliminary Chest Tissue Culture - Preliminary 11/02/22 11:00 Anaerobic Culture - Preliminary Chest 10/31/22 12:40 Blood Culture - Preliminary Blood No Growth after 48 hours 10/31/22 12:40 Blood Culture - Preliminary Blood No Growth after 48 hours 10/31/22 13:31 Gram Stain - Final Sputum Sputum Culture - Final Assessment and Plan (1) Cavitating mass in right upper lung lobe Current Visit: Yes Status: Acute Code(s): J98.4 - OTHER DISORDERS OF LUNG SNOMED Code(s): 808508546 (2) Leukocytosis Current Visit: Yes Status: Acute Code(s): D72.829 - ELEVATED WHITE BLOOD CELL COUNT, UNSPECIFIED SNOMED Code(s): 523831989 Plan: 1patient with right upper lobe cavitary mass high clinic suspicious for tamia dela cruz in this patient who did have a bronchoscopy and biopsy done at the [facility] last week with results currently pending, patient presenting to the hospital with worsening right-sided chest pain which is more likely due to his cavitary lung mass with some destruction of the adjacent ribs, underlying postobstructive pneumonia not entirely excluded and will need to cover for the polymicrobial jovanny usually associated with this infection. 2blood and sputum culture had been negative so far 3patient to continue with the Zosyn and continue with supportive care
[2022-11-04] MEDS: MORPHINE SULFATE 4 MG/ML SYRINGE IVP PRN ×6 (01:26→22:22)
[2022-11-04] MEDS: IPRATROPIUM-ALBUTEROL 3 ML NEB INHALATION SCH ×4 (07:11→20:29)
[2022-11-04] MEDS: FOLIC ACID 1 MG TAB PO SCH (08:26)
[2022-11-04] MEDS: LIDOCAINE 5% PATCH TOPICAL SCH (11:12)
[2022-11-04] MEDS: ONDANSETRON 4 MG/2 ML VIAL IVP PRN (11:13)
[2022-11-04 12:31] LABS: HCT 28.1 % (39.0-53.0); Hypochromasia Moderate; MCH 28.2 pg (25.0-35.0); MCHC 31.3 g/dL (31.0-37.0); MCV 90.1 fL (80.0-100.0); Mean Platelet Volume 7.9; Platelet Count 495 k/uL (150-450); RBC 3.12 m/uL (4.30-5.90); RDW 14.6 % (11.5-15.5)
[2022-11-04 12:42] LABS: African American GFR (CKD) >90 (>60 ml/min/1.73 sqM); Anion Gap 10 mmol/L; Blood Urea Nitrogen 8 mg/dL (9-20); Calcium 9.9 mg/dL (8.4-10.2); Carbon Dioxide 20 mmol/L (22-30); Chloride 110 mmol/L (98-107); Glucose 90 mg/dL (74-99); HGB 8.8 gm/dL (13.0-17.5); Non-African American GFR(CKD) >90 (>60 ml/min/1.73 sqM); Potassium 2.8 mmol/L (3.5-5.1); Sodium 140 mmol/L (137-145)
[2022-11-04 12:44] LABS: WBC 65.3 k/uL (3.8-10.6)
--- NOTE | 2022-11-04 12:59 | P.PN ---
Subjective Progress Note Date: 11/04/22 Patient is a 62-year-old male with past medical history of right lung mass and [id number] smoking history presents the ED for right-sided chest pain, cough productive of brown sputum, hemoptysis and shortness of breath. Patient gets all of his care from the [facility]. He underwent bronchoscopy and biopsy in August 2022 for right lung mass. Pathology was nondiagnostic at that time. Patient reports undergoing a second bronchoscopy and lung biopsy last week with the [facility] in [place]. He is unaware of the pathology results from this biopsy. He reports worsening cough productive of brown sputum and blood. He reports exertional shortness of breath. He reports right-sided chest pain worsened with deep inspiration and cough. Of note, patient also reports 30 pound weight loss since August, unintentional. He also reports fever and chills. He denies any headache, lower extremity edema, nausea or vomiting, palpitations, changes in urination or bowel habits. He denies any dizziness, numbness/w eakness/tingling of the extremities. In the ED, he was noted to be tachycardic with heart rate in the 120s. Vital signs were otherwise stable. CBC showed WBC count of 65.7 which was lymphocytic in nature with hemoglobin of 10.3 and platelet count of 504. INR was 1.3. CMP showed sodium 134, potassium of 3.3, bicarb of 17, glucose 116, calcium of 11, alkaline phosphatase of 619. Troponin was less than 0.012, EKG showing sinus tachycardia. Lactic acid negative. CRP was 30.6. ESR was 112. CTA chest showed no PE, large cavitary mass involving the right upper lobe, right apex and adjacent chest wall measuring 12.6 cm with pathologic fractures of the right first and second rubs, right paratracheal metastatic lymphadenopathy measuring 3.5 cm, airspace opacity lateral right upper lobe possible postobstructive pneumonitis. Initially, plan was to transfer the patient to [facility] in [place]. Due to lack of bed availability, patient has been admitted for further management of symptoms. Patient underwent CT guided biopsy of the right chest mass. Patient was seen and examined. He continues to report chest pain with cough. Coughing up brown sputum. Pain has been largely uncontrolled with Morphine and Oxycodone. K 2.8 today. General: toxic, moderate distress, appears at stated age Derm: warm, dry Head: atraumatic, normocephalic, symmetric Eyes: EOMI, no lid lag, anicteric sclera Mouth: no lip lesion, mucus membranes moist Cardiovascular: Tachycardic, no murmur, positive posterior tibial pulse bilateral, Lungs: Decreased BS bilateral, rhonchi noted in all lung alvarado , no accessory muscle use Abdominal: soft, nontender to palpation, no guarding, no appreciable organomegaly Ext: no gross muscle atrophy, no edema, no contractures Neuro: no focal neuro deficits Psych: Alert, oriented, appropriate affect #Right upper lobe mass #Sepsis related to hospital-acquired pneumonia #Hemoptysis #Right-sided chest pain #Leukocytosis His leukocytosis is neutrophilic predominant. He also meets sepsis criteria with leukocytosis, tachycadia and positive source of infection. Concern for bronchogenic carcinoma with superimposed pneumonia. ESR, CRP, procalcitonin elevated. Influenza, COVID 19 negative. Continue Zosyn for broad spectrum antibiotic coverage, Vancomycin discontinued by ID. Pain control with Morphine PRN and started on scheduled Percocet. Add Toradol scheduled and Lidocaine patch today. DuoNeb PRN for SOB/wheezing. Telemetry monitoring. DC IVF and encourage hydration by mouth. Follow blood culture, sputum culture Pathology results from [facility] in [place] inconclusive. Underwent CT guided biopsy of the right chest mass, pathology pending. Pulmonology, Oncology and Infectious disease on board. #Normocytic anemia Iron studies show anemia of chronic disease. Replace folic acid. #Hypokalemia Replace. #Metabolic acidosis Likely due to underlying malignancy. Lactic acid negative. Continue IV hydration as above. #History of tobacco abuse Patient has quit. Patient names his decision maker if he cant make decisions for himself. Patient would like to be FULL CODE. Objective - Vital Signs Vital signs: Vital Signs Temp 97.6 F 11/04/22 11:31 Pulse 95 11/04/22 11:31 Resp 20 11/04/22 11:31 BP 119/56 11/04/22 11:31 Pulse Ox 96 11/04/22 11:31 FiO2 Intake & Output 11/03/22 11/04/22 11/04/22 18:59 06:59 18:59 Intake Total 790 Output Total 1800 Balance -1010 Intake: Intake, IV Titration 200 Amount Piperacillin-Tazobactam 3 200 .375 gm In Sodium Chloride 0.9% 100 ml @ 25 mls/hr IVPB Q8HR [facility] Rx# :[id number] Oral 590 Output: Urine 1800 Other: # Voids 1 1 - Labs CBC & Chem 7: 11/04/22 12:08 11/04/22 12:08 Labs: Abnormal Lab Results - Last 24 Hours (Table) 11/04/22 11/04/22 Range/Units 12:08 12:08 RBC 3.12 L (4.30-5.90) m/uL Hgb 8.8 L D (13.0-17.5) gm/dL Hct 28.1 L (39.0-53.0) % Plt Count 495 H (150-450) k/uL Potassium 2.8 L (3.5-5.1) mmol/L Chloride 110 H (98-107) mmol/L Carbon Dioxide 20 L (22-30) mmol/L BUN 8 L (9-20) mg/dL Creatinine 0.65 L (0.66-1.25) mg/dL Microbiology - Last 24 Hours (Table) 11/02/22 11:00 Gram Stain - Preliminary Chest Tissue Culture - Preliminary 10/31/22 12:40 Blood Culture - Preliminary Blood No Growth after 72 hours 10/31/22 12:40 Blood Culture - Preliminary Blood No Growth after 72 hours
[2022-11-04] MEDS: POTASSIUM CHLORIDE 10 MEQ in WATER FOR INJECTION 1 100ML.BAG IVPB SCH ×6 (13:49→21:27)
[2022-11-04] MEDS: KETOROLAC 15 MG/ML 1 ML VIAL IVP SCH ×3 (13:49→23:50)
--- NOTE | 2022-11-04 15:41 | P.PN ---
Subjective Progress Note Date: 11/04/22 Principal diagnosis: Right upper lobe cavitary mass suggestive of bronchogenic carcinoma and postobstructive pneumonitis This is a 62-year-old white male, heavy smoker, patient has been ill apparently for the last few months. Patient was found to have a right upper lobe cavitary mass, and he was seen at [facility] back in August in he underwent bronchoscopy and biopsy, however the biopsy was nondiagnostic. [facility] and he underwent another lung biopsy and this was supposedly done last week. Patient was never made aware of the results of the biopsy, and he was never told whether the findings are findings suggestive of lung cancer or suggestive of infection. Nonetheless the patient has been experiencing intermittent episodes of cough, cough is productive with brownish phlegm, and at times blood-tinged sputum. Patient has been losing weight, he lost over 30 pounds in the last few months. He called his primary care physician in [place], and he recommended that he goes to the nearest hospital. Patient is here today, and CT of the chest showed evidence of large cavitating mass involving the right upper lobe/right apex, with chest wall invasion, pathological fractures of the first and second ribs, and destruction of the righ t lateral second rib with chest wall invasion and extending beyond the rib margin by 1.6 cm. Patient was also found to have right paratracheal lymphadenopathy measuring 3.5 cm. Postobstructive pneumonitis was also felt to be likely in the picture. Clinically the patient has been complaining of cough, intermittent fever, chills, and weight loss. WBC count is 65.7 hemoglobin is 10.3. Electrolytes are normal, calcium is elevated at 11.0. Patient was also found to have elevated alkaline phosphatase of 619 considering the findings, patient will be admitted and we were asked to see him on consultation. I did see the patient in the ER, and I am strongly recommending transfer to the [facility] since we have no pathology report on this patient, and now the differential diagnoses includes most likely malignancy/lungs CTA, however the possibility of infection is not entirely ruled out. Or the patient may have a postobstructive pneumonitis no records are available for me to review from the [facility] or from [facility]. However I am strongly suspecting that were dealing with primary malignancy involving the right upper lobe. The patient is seen today 11/01/2022 in follow-up on the regular medical floor. He is awake and alert in no acute distress. Currently resting comfortably in bed. Maintaining O2 saturations in the 90s on room air. Sputum culture pending. Sodium 140. Potassium 3.3. Chloride 110. Bicarb 20. BUN 10. Creatinine 0.80. Bryant virus not detected. Influenza screen negative. He remains on bronchodilators. Antibiotics in the form of a myosin and Zosyn. He has a productive cough of tannish yellow sputum. The patient states he spoke with a nurse from the [facility] who did tell him his pathology was positive for cancer. We are trying to obtain these results. The patient does have right upper lobe chest wall protrusion. He also has a right subclavian enlarged lymph node. Oncology has been consulted. The patient is seen today 11/02/2022 in follow-up on the regular medical floor. He is currently sitting up in bed. Awake and alert in no acute distress. He is still having significant cough and congestion. Sputum culture pending. Blood cultures reveal no growth. Potassium 3.3. Creatinine 0.82. Continued on Zosyn. Records obtained from the [facility] again showed inconclusive biopsy. He is kept nothing by mouth for possible biopsies today. The patient is seen today 11/03/2022 in follow-up on the regular medical floor. He is awake and alert in no acute distress. He is having ongoing discomfort in the right upper chest area secondary to the and surrounding tissue mass that is invading into the ribs and surrounding tissue. He did undergo a CT-guided biopsy yesterday. Pathology is pending. Medical oncology and radiation oncology are on the case. Awaiting further information from the [facility] in [place]. He is currently on Zosyn and bronchodilators. Morphine and Percocet for adequate pain control. Reevaluated today on 11/04/22, patient is feeling a bit better, remains on antibiotics/Zosyn, no hemoptysis, pain seems to be better controlled, he is not in distress, pathology from his CT-guided needle biopsy is pending. Continues to have leukocytosis with WBC of 65.3 potassium is a bit low being addressed accordingly renal profile is normal Objective - Vital Signs Vital signs: Vital Signs Temp 97.6 F 11/04/22 11:31 Pulse 95 11/04/22 15:28 Resp 20 11/04/22 11:31 BP 119/56 11/04/22 11:31 Pulse Ox 96 11/04/22 11:31 FiO2 Intake & Output 11/03/22 11/04/22 11/04/22 18:59 06:59 18:59 Intake Total 790 Output Total 1800 Balance -1010 Intake: Intake, IV Titration 200 Amount Piperacillin-Tazobactam 3 200 .375 gm In Sodium Chloride 0.9% 100 ml @ 25 mls/hr IVPB Q8HR [facility] Rx# :[id number] Oral 590 Output: Urine 1800 Other: # Voids 1 1 - Exam Physical Exam: Revealed a 62-year-old white male in no distress, on room air, O2 sats 96% HEENT:[Neck is supple.] [No neck masses.] [No thyromegaly.] [No JVD.] Chest: [Clear throughout, no crackles, no rhonchi, no wheezes.] Cardiac Exam: [Normal S1 and S2, no S3 gallop, no murmur.] Abdomen: [Soft, nontender, no megaly, no rebound, no guarding, normal bowel sounds.] Extremities: [No clubbing, no edema, no cyanosis.] Neurological Exam: [No focal neurologic deficit.] Psychiatric: Normal mood affect and normal mental status examination. Skin: No rashes. - Labs CBC & Chem 7: 11/04/22 12:08 11/04/22 12:08 Labs: Abnormal Lab Results - Last 24 Hours (Table) 11/04/22 11/04/22 Range/Units 12:08 12:08 WBC 65.3 H* (3.8-10.6) k/uL RBC 3.12 L (4.30-5.90) m/uL Hgb 8.8 L D (13.0-17.5) gm/dL Hct 28.1 L (39.0-53.0) % Plt Count 495 H (150-450) k/uL Potassium 2.8 L (3.5-5.1) mmol/L Chloride 110 H (98-107) mmol/L Carbon Dioxide 20 L (22-30) mmol/L BUN 8 L (9-20) mg/dL Creatinine 0.65 L (0.66-1.25) mg/dL Microbiology - Last 24 Hours (Table) 10/31/22 12:40 Blood Culture - Preliminary Blood No Growth after 96 hours 10/31/22 12:40 Blood Culture - Preliminary Blood No Growth after 96 hours 11/02/22 11:00 Gram Stain - Preliminary Chest Tissue Culture - Preliminary Assessment and Plan Assessment: Impression: Large right upper lobe mass with cavitation and possible postobstructive pneumonitis. Differential diagnoses includes bronchogenic carcinoma and/or extensive necrotizing pneumonia involving the right upper lobe. Or possibly both. Leukocytosis secondary to above, possible leukemoid reaction Weight loss secondary to above Acute exacerbation of COPD Tobacco dependence syndrome Status post bronchoscopy 2, one done at [facility] and one done [facility], results are not available since his last bronchoscopy was done within the last week. Recommendation: Sputum cultures were done nondiagnostic Awaiting pathology report from his CT-guided biopsy done a few days ago. In the meantime continue antibiotics and bronchodilators. Not ready for any discharge planning We'll continue to follow Time with Patient: Less than 30
[2022-11-04] MEDS: FERROUS SULFATE 325 MG TAB PO SCH (20:25)
[2022-11-04] MEDS: ESCITALOPRAM 10 MG TAB PO SCH (20:25)
--- NOTE | 2022-11-04 23:31 | P.PN ---
Subjective Progress Note Date: 11/04/22 Principal diagnosis: Cavitating pneumonia Patient is a 62 year old male with a recent diagnosis of right upper lobe cavitating lesion has been biopsies 2 presenting to the hospital with increasing pain to the right side of the chest CT chest did shows large partially cavitating mass involving the right upper With pathological fracture of the right first and second rib and there is concern for possible pneumonia. On today's evaluation that is 11/04/2022, the patient remains to be afebrile, the patient is breathing comfortably on room air, the patient is still com plaining of right-sided chest pain with some control with the current pain medication , the patient denies nausea no vomiting no abdominal pain no diarrhea Objective - Vital Signs Vital signs: Vital Signs Temp 98.5 F 11/04/22 19:50 Pulse 96 11/04/22 20:42 Resp 16 11/04/22 19:50 BP 152/78 11/04/22 19:50 Pulse Ox 92 L 11/04/22 19:50 FiO2 Intake & Output 11/04/22 11/04/22 11/05/22 06:59 18:59 06:59 Intake Total 790 240 Output Total 1800 900 Balance -1010 -660 Intake: Intake, IV Titration 200 Amount Piperacillin-Tazobactam 3 200 .375 gm In Sodium Chloride 0.9% 100 ml @ 25 mls/hr IVPB Q8HR [facility] Rx# :[id number] Oral 590 240 Output: Urine 1800 900 Other: # Voids 1 - Exam GENERAL DESCRIPTION: A middle-aged male lying in bed in no distress RESPIRATORY SYSTEM: Unlabored breathing , decreased breath sounds at bases HEART: S1 S2 regular rate and rhythm , ABDOMEN: Soft , no tenderness EXTREMITIES: No edema feet - Labs CBC & Chem 7: 11/04/22 12:08 11/04/22 12:08 Labs: Abnormal Lab Results - Last 24 Hours (Table) 11/04/22 11/04/22 Range/Units 12:08 12:08 WBC 65.3 H* (3.8-10.6) k/uL RBC 3.12 L (4.30-5.90) m/uL Hgb 8.8 L D (13.0-17.5) gm/dL Hct 28.1 L (39.0-53.0) % Plt Count 495 H (150-450) k/uL Potassium 2.8 L (3.5-5.1) mmol/L Chloride 110 H (98-107) mmol/L Carbon Dioxide 20 L (22-30) mmol/L BUN 8 L (9-20) mg/dL Creatinine 0.65 L (0.66-1.25) mg/dL Microbiology - Last 24 Hours (Table) 11/02/22 11:00 Gram Stain - Preliminary Chest Tissue Culture - Preliminary 10/31/22 12:40 Blood Culture - Preliminary Blood No Growth after 96 hours 10/31/22 12:40 Blood Culture - Preliminary Blood No Growth after 96 hours Assessment and Plan (1) Cavitating mass in right upper lung lobe Current Visit: Yes Status: Acute Code(s): J98.4 - OTHER DISORDERS OF LUNG SNOMED Code(s): 107179053 (2) Leukocytosis Current Visit: Yes Status: Acute Code(s): D72.829 - ELEVATED WHITE BLOOD CELL COUNT, UNSPECIFIED SNOMED Code(s): 863604761 Plan: 1patient with right upper lobe cavitary mass high clinic suspicious for malignancy in this patient who did have a bronchoscopy and biopsy done at the [facility] last week with results currently pending, patient presenting to the hospital with worsening right-sided chest pain which is more likely due to his cavitary lung mass with some destruction of the adjacent ribs, underlying postobstructive pneumonia not entirely excluded and will need to cover for the polymicrobial jovanny usually associated with this infection. 2blood and sputum culture had been negative so far 3patient currently being treated with the Zosyn which will be continued and continue with supportive care Time with Patient: Less than 30
[2022-11-05] MEDS: MORPHINE SULFATE 4 MG/ML SYRINGE IVP PRN ×5 (02:09→22:26)
[2022-11-05] MEDS: oxyCODONE-APAP 10-325MG 1 EACH TAB PO SCH ×6 (04:06→23:49)
[2022-11-05] MEDS: KETOROLAC 15 MG/ML 1 ML VIAL IVP SCH ×4 (05:18→23:49)
[2022-11-05] MEDS: IPRATROPIUM-ALBUTEROL 3 ML NEB INHALATION SCH ×4 (07:24→19:46)
--- NOTE | 2022-11-05 08:32 | P.PN ---
Subjective Progress Note Date: 11/05/22 Principal diagnosis: Lung mass. The patient is seen today 11/01/2022 in follow-up on the regular medical floor. He is awake and alert in no acute distress. Currently resting comfortably in bed. Maintaining O2 saturations in the 90s on room air. Sputum culture pending. Sodium 140. Potassium 3.3. Chloride 110. Bicarb 20. BUN 10. Creatinine 0.80. Bryant virus not detected. Influenza screen negative. He remains on bronchodilators. Antibiotics in the form of a myosin and Zosyn. He has a productive cough of tannish yellow sputum. The patient states he spoke with a nurse from the [facility] who did tell him his pathology was positive for cancer. We are trying to obtain these results. The patient does have right upper lobe chest wall protrusion. He also has a right subclavian enlarged lymph node. Oncology has been consulted. The patient is seen today 11/02/2022 in follow-up on the regular medical floor. He is currently sitting up in bed. Awake and alert in no acute distress. He is still having significant cough and congestion. Sputum culture pending. Blood cultures reveal no growth. Potassium 3.3. Creatinine 0.82. Continued on Zosyn. Records obtained from the [facility] again showed inconclusive biopsy. He is kept nothing by mouth for possible biopsies today. The patient is seen today 11/03/2022 in follow-up on the regular medical floor. He is awake and alert in no acute distress. He is having ongoing discomfort in the right upper chest area secondary to the and surrounding tissue mass that is invading into the ribs and surrounding tissue. He did undergo a CT-guided biopsy yesterday. Pathology is pending. Medical oncology and radiation oncology are on the case. Awaiting further information from the [facility] in [place]. He is currently on Zosyn and bronchodilators. Morphine and Percocet for adequate pain control. Reevaluated today on 11/04/22, patient is feeling a bit better, remains on antibiotics/Zosyn, no hemoptysis, pain seems to be better controlled, he is not in distress, pathology from his CT-guided needle biopsy is pending. Continues to have leukocytosis with WBC of 65.3 potassium is a bit low being addressed accordingly renal profile is normal Progress note dated 11/05/2022. 62-year-old male seen in room 519. He had a fine-needle of his right upper lobe mass performed on November 02Saturday. Results are currently pending. The patient's on room air. Getting saline at 20 mL an hour. No new blood work today. Blood work from November 04 was reviewed. The patient has been biops ied 3 times including once at [facility], and once at the [facility]. Objective - Vital Signs Vital signs: Vital Signs Temp 98 F 11/05/22 04:49 Pulse 96 11/05/22 07:36 Resp 16 11/05/22 04:49 BP 138/56 11/05/22 04:49 Pulse Ox 93 L 11/05/22 04:49 FiO2 Intake & Output 11/04/22 11/05/22 11/05/22 18:59 06:59 18:59 Intake Total 240 300 Output Total 900 800 Balance -660 -500 Intake: Oral 240 300 Output: Urine 900 800 Other: # Voids 1 - Exam No acute distress, oriented 3. Currently on room air. HEENT examination is grossly unremarkable. Neck supple. Full range of motion. No adenopathy thyromegaly or neck vein distention. Cardiovascular examination reveals regular rhythm rate. S1-S2 normal. No S3 or S4. No discernible murmur noted. Heart rate 96 bpm. Lungs reveal bilateral rhonchi. No wheezes or crackles. Breath sounds equal. Room air saturation 93%. Abdomen soft bowel sounds are heard. No masses or tenderness. Extremities are intact. No cyanosis clubbing or edema. Skin is without rash or lesion. Neurologic examination is brief but nonfocal. - Labs CBC & Chem 7: 11/04/22 12:08 11/04/22 12:08 Labs: Abnormal Lab Results - Last 24 Hours (Table) 11/04/22 11/04/22 Range/Units 12: 12:08 WBC 65.3 H* (3.8-10.6) k/uL RBC 3.12 L (4.30-5.90) m/uL Hgb 8.8 L D (13.0-17.5) gm/dL Hct 28.1 L (39.0-53.0) % Plt Count 495 H (150-450) k/uL Potassium 2.8 L (3.5-5.1) mmol/L Chloride 110 H (98-107) mmol/L Carbon Dioxide 20 L (22-30) mmol/L BUN 8 L (9-20) mg/dL Creatinine 0.65 L (0.66-1.25) mg/dL Microbiology - Last 24 Hours (Table) 11/02/22 11:00 Gram Stain - Preliminary Chest Tissue Culture - Preliminary 10/31/22 12:40 Blood Culture - Preliminary Blood No Growth after 96 hours 10/31/22 12:40 Blood Culture - Preliminary Blood No Growth after 96 hours Assessment and Plan Assessment: Right upper lobe mass, with cavitation, rib involvement, and chest wall involvement, likely consistent with bronchogenic carcinoma. Status post fine-needle aspiration by interventional radiology, 11/02/2022. Anorexia/cachexia syndrome, secondary to lung mass. COPD exacerbation. Tobacco dependence syndrome. Status post biopsy 2, once at [facility], and once at the [facility]. Plan: Plan dated 11/05/2022. Currently awaiting the results from the recent fine-needle aspiration. The patient's currently on Zosyn as per infectious diseases. The patient continues on breathing treatments. Prognosis is certainly guarded. No additional recommendations are made. Time with Patient: Less than 30
[2022-11-05 08:48] LABS: African American GFR (CKD) >90 (>60 ml/min/1.73 sqM); Anion Gap 8 mmol/L; Blood Urea Nitrogen 9 mg/dL (9-20); Calcium 9.7 mg/dL (8.4-10.2); Carbon Dioxide 23 mmol/L (22-30); Chloride 109 mmol/L (98-107); Glucose 93 mg/dL (74-99); Non-African American GFR(CKD) >90 (>60 ml/min/1.73 sqM); Potassium 3.1 mmol/L (3.5-5.1); Sodium 140 mmol/L (137-145)
[2022-11-05] MEDS: FOLIC ACID 1 MG TAB PO SCH (09:37)
[2022-11-05] MEDS: LIDOCAINE 5% PATCH TOPICAL SCH (09:38)
[2022-11-05] MEDS: PIPERACILLIN-TAZOBACTAM 3.375 GM in SODIUM CHLORIDE 0.9% 100 ML IVPB SCH ×3 (09:39→23:49)
--- NOTE | 2022-11-05 11:08 | P.PN ---
Subjective Progress Note Date: 11/05/22 Patient is a 62-year-old male with past medical history of right lung mass and [id number] smoking history presents the ED for right-sided chest pain, cough productive of brown sputum, hemoptysis and shortness of breath. Patient gets all of [facility]. He underwent bronchoscopy and biopsy in August 2022 for right lung mass. Pathology was nondiagnostic at that time. Patient reports undergoing a second bronchoscopy and lung biopsy last week with the [facility] in [place]. He is unaware of the pathology results from this biopsy. He reports worsening cough productive of brown sputum and blood. He reports exertional shortness of breath. He reports right-sided chest pain worsened with deep inspiration and cough. Of note, patient also reports 30 pound weight loss since August, unintentional. He also reports fever and chills. He denies any headache, lower extremity edema, nausea or vomiting, palpitations, changes in urination or bowel habits. He denies any dizziness, numbness/w eakness/tingling of the extremities. In the ED, he was noted to be tachycardic with heart rate in the 120s. Vital signs were otherwise stable. CBC showed WBC count of 65.7 which was lymphocytic in nature with hemoglobin of 10.3 and platelet count of 504. INR was 1.3. CMP showed sodium 134, potassium of 3.3, bicarb of 17, glucose 116, calcium of 11, alkaline phosphatase of 619. Troponin was less than 0.012, EKG showing sinus tachycardia. Lactic acid negative. CRP was 30.6. ESR was 112. CTA chest showed no PE, large cavitary mass involving the right upper lobe, right apex and adjacent chest wall measuring 12.6 cm with pathologic fractures of the right first and second rubs, right paratracheal metastatic lymphadenopathy measuring 3.5 cm, airspace opacity lateral right upper lobe possible postobstructive pneumonitis. Initially, plan was to transfer the [facility] to [facility] [place]. Due to lack of bed availability, patient has been admitted for further management of symptoms. Patient underwent CT guided biopsy of the right chest mass. Patient was seen and examined. He continues to report chest pain with cough. Pain is 10/10 in severity. Coughing up brown sputum. Pain has been largely uncontrolled with Morphine, Lidocaine patch, Toradol and Oxycodone. K 3.1 today. General: lethargic, moderate distress, appears at stated age Derm: warm, dry Head: atraumatic, normocephalic, symmetric Eyes: EOMI, no lid lag, anicteric sclera Mouth: no lip lesion, mucus membranes moist Cardiovascular: S1 S2, no murmur, positive posterior tibial pulse bilateral, Lungs: Decreased BS bilateral, rhonchi noted in all lung alvarado , no accessory muscle use Abdominal: soft, nontender to palpation, no guarding, no appreciable organomegaly Ext: no gross muscle atrophy, swelling of the RUE, no contractures Neuro: no focal neuro deficits Psych: Alert, oriented, appropriate affect #Right upper lobe mass #Sepsis related to hospital-acquired pneumonia #Hemoptysis #Right-sided chest pain #Leukocytosis His leukocytosis is neutrophilic predominant. He also meets sepsis criteria with leukocytosis, tachycadia and positive source of infection. Concern for bronchogenic carcinoma with superimposed pneumonia. ESR, CRP, procalcitonin elevated. Influenza, COVID 19 negative. Continue Zosyn for broad spectrum antibiotic coverage, Vancomycin discontinued by ID. Pain control with Morphine PRN, scheduled Percocet, Toradol scheduled and Lidocaine patch. DuoNeb PRN for SOB/wheezing. Telemetry monitoring. DC IVF and encourage hydration by mouth. Follow blood culture, sputum culture Pathology results from [facility] [place] inconclusive. Underwent CT guided biopsy of the right chest mass, pathology pending. Pulmonology, Oncology and Infectious disease on board. #Normocytic anemia Iron studies show anemia of chronic disease. Replace folic acid. #Hypokalemia Replace. #Metabolic acidosis Likely due to underlying malignancy. Lactic acid negative. Continue IV hydration as above. #History of tobacco abuse Patient has quit. Patient names his decision maker if he cant make decisions for himself. Patient would like to be FULL CODE. Objective - Vital Signs Vital signs: Vital Signs Temp 98 F 11/05/22 04:49 Pulse 92 11/05/22 11:03 Resp 19 11/05/22 08:00 BP 138/56 11/05/22 04:49 Pulse Ox 93 L 11/05/22 04:49 FiO2 Intake & Output 11/04/22 11/05/22 11/05/22 18:59 06:59 18:59 Intake Total 240 300 Output Total 900 800 Balance -660 -500 Intake: Oral 240 300 Output: Urine 900 800 Other: # Voids 1 - Labs CBC & Chem 7: 11/04/22 12:08 11/05/22 08:23 Labs: Abnormal Lab Results - Last 24 Hours (Table) 11/04/22 11/04/22 11/05/22 Range/Units 12:08 12:08 08:23 WBC 65.3 H* (3.8-10.6) k/uL RBC 3.12 L (4.30-5.90) m/uL Hgb 8.8 L D (13.0-17.5) gm/dL Hct 28.1 L (39.0-53.0) % Plt Count 495 H (150-450) k/uL Potassium 2.8 L 3.1 L (3.5-5.1) mmol/L Chloride 110 H 109 H (98-107) mmol/L Carbon Dioxide 20 L (22-30) mmol/L BUN 8 L (9-20) mg/dL Creatinine 0.65 L (0.66-1.25) mg/dL Microbiology - Last 24 Hours (Table) 11/02/22 11:00 Gram Stain - Preliminary Chest Tissue Culture - Preliminary 10/31/22 12:40 Blood Culture - Preliminary Blood No Growth after 96 hours 10/31/22 12:40 Blood Culture - Preliminary Blood No Growth after 96 hours
[2022-11-05] MEDS: POTASSIUM CHLORIDE 10 MEQ in WATER FOR INJECTION 1 100ML.BAG IVPB SCH ×4 (11:51→17:29)
[2022-11-05 12:05] LABS: HCT 29.1 % (39.0-53.0); HGB 8.6 gm/dL (13.0-17.5); Hypochromasia Marked; MCHC 29.7 g/dL (31.0-37.0); MCV 94.6 fL (80.0-100.0); Mean Platelet Volume 8.5; Platelet Count 480 k/uL (150-450); RBC 3.08 m/uL (4.30-5.90); RDW 14.5 % (11.5-15.5)
[2022-11-05 12:10] LABS: WBC 57.2 k/uL (3.8-10.6)
[2022-11-05] MEDS: ONDANSETRON 4 MG/2 ML VIAL IVP PRN (13:50)
[2022-11-05] MEDS: FERROUS SULFATE 325 MG TAB PO SCH (20:08)
[2022-11-05] MEDS: ESCITALOPRAM 10 MG TAB PO SCH (20:08)
[2022-11-06] MEDS: oxyCODONE-APAP 10-325MG 1 EACH TAB PO SCH ×6 (03:46→23:24)
[2022-11-06] MEDS: MORPHINE SULFATE 4 MG/ML SYRINGE IVP PRN ×3 (03:49→18:10)
[2022-11-06] MEDS: KETOROLAC 15 MG/ML 1 ML VIAL IVP SCH ×4 (05:56→23:25)
[2022-11-06] MEDS: IPRATROPIUM-ALBUTEROL 3 ML NEB INHALATION SCH ×4 (07:51→20:09)
[2022-11-06] MEDS: LIDOCAINE 5% PATCH TOPICAL SCH (08:00)
[2022-11-06] MEDS: FOLIC ACID 1 MG TAB PO SCH (08:00)
[2022-11-06] MEDS: PIPERACILLIN-TAZOBACTAM 3.375 GM in SODIUM CHLORIDE 0.9% 100 ML IVPB SCH ×3 (08:01→23:25)
--- NOTE | 2022-11-06 08:02 | P.PN ---
Subjective Progress Note Date: 11/06/22 Principal diagnosis: Lung mass. The patient is seen today 11/01/2022 in follow-up on the regular medical floor. He is awake and alert in no acute distress. Currently resting comfortably in bed. Maintaining O2 saturations in the 90s on room air. Sputum culture pending. Sodium 140. Potassium 3.3. Chloride 110. Bicarb 20. BUN 10. Creatinine 0.80. Bryant virus not detected. Influenza screen negative. He remains on bronchodilators. Antibiotics in the form of a myosin and Zosyn. He has a productive cough of tannish yellow sputum. The patient states he spoke with a nurse from the [facility] who did tell him his pathology was positive for cancer. We are trying to obtain these results. The patient does have right upper lobe chest wall protrusion. He also has a right subclavian enlarged lymph node. Oncology has been consulted. The patient is seen today 11/02/2022 in follow-up on the regular medical floor. He is currently sitting up in bed. Awake and alert in no acute distress. He is still having significant cough and congestion. Sputum culture pending. Blood cultures reveal no growth. Potassium 3.3. Creatinine 0.82. Continued on Zosyn. Records obtained from the [facility] again showed inconclusive biopsy. He is kept nothing by mouth for possible biopsies today. The patient is seen today 11/03/2022 in follow-up on the regular medical floor. He is awake and alert in no acute distress. He is having ongoing discomfort in the right upper chest area secondary to the and surrounding tissue mass that is invading into the ribs and surrounding tissue. He did undergo a CT-guided biopsy yesterday. Pathology is pending. Medical oncology and radiation oncology are on the case. Awaiting further information from the [facility] in [place]. He is currently on Zosyn and bronchodilators. Morphine and Percocet for adequate pain control. Reevaluated today on 11/04/22, patient is feeling a bit better, remains on antibiotics/Zosyn, no hemoptysis, pain seems to be better controlled, he is not in distress, pathology from his CT-guided needle biopsy is pending. Continues to have leukocytosis with WBC of 65.3 potassium is a bit low being addressed accordingly renal profile is normal Progress note dated 11/05/2022. 62-year-old male seen in room 519. He had a fine-needle of his right upper lobe mass performed on November 02Saturday. Results are currently pending. The patient's on room air. Getting saline at 20 mL an hour. No new blood work today. Blood work from November 04 was reviewed. The patient has been biops ied 3 times including once at [facility], and once at the [place]. Progress note dated 11/06/2022. 62-year-old male again seen in her room 519. He's currently on room air. Getting saline at 20 mL an hour. He had a fine-needle biopsy, of his lung mass, right upper lobe, done on November 02saturday. Currently, pathology is pending. Patient is resting comfortably without distress. No new labs today. White count from yesterday was 57.2, hemoglobin of 8.6 hematocrit 29.1 and a normal platelet count. Objective - Vital Signs Vital signs: Vital Signs Temp 97.8 F 11/06/22 04:09 Pulse 95 11/06/22 04:09 Resp 16 11/06/22 04:09 BP 160/71 11/06/22 04:09 Pulse Ox 92 L 11/06/22 04:09 FiO2 Intake & Output 11/05/22 11/06/22 11/06/22 18:59 06:59 18:59 Intake Total 600 Output Total 400 Balance 200 Weight 77.111 kg Intake: Oral 600 Output: Urine 400 - Exam No acute distress, oriented 3. Currently on room air. HEENT examination is grossly unremarkable. Neck supple. Full range of motion. No adenopathy thyromegaly or neck vein distention. Cardiovascular examination reveals regular rhythm rate. S1-S2 normal. No S3 or S4. No discernible murmur noted. Heart rate 92 bpm. Lungs reveal bilateral rhonchi. No wheezes or crackles. Breath sounds equal. Room air saturation 92 %. Abdomen soft bowel sounds are heard. No masses or tenderness. Extremities are intact. No cyanosis clubbing or edema. Skin is without rash or lesion. Neurologic examination is brief but nonfocal. - Labs CBC & Chem 7: 11/05/22 08:23 11/05/22 08:23 Labs: Abnormal Lab Results - Last 24 Hours (Table) 11/05/22 11/05/22 Range/Units 08:23 08:23 WBC 57.2 H* (3.8-10.6) k/uL RBC 3.08 L (4.30-5.90) m/uL Hgb 8.6 L (13.0-17.5) gm/dL Hct 29.1 L (39.0-53.0) % MCHC 29.7 L (31.0-37.0) g/dL Plt Count 480 H (150-450) k/uL Potassium 3.1 L (3.5-5.1) mmol/L Chloride 109 H (98-107) mmol/L Microbiology - Last 24 Hours (Table) 11/02/22 11:00 Gram Stain - Preliminary Chest Tissue Culture - Preliminary 10/31/22 12:40 Blood Culture - Preliminary Blood No Growth after 120 hours 10/31/22 12:40 Blood Culture - Preliminary Blood No Growth after 120 hours Assessment and Plan Assessment: Right upper lobe mass, with cavitation, rib involvement, and chest wall involvement, likely consistent with bronchogenic carcinoma. Status post fine-needle aspiration by interventional radiology, 11/02/2022. Anorexia/cachexia syndrome, secondary to lung mass. COPD exacerbation. Tobacco dependence syndrome. Status post biopsy 2, once at [facility], and once at the [place]. Plan: Plan dated 11/05/2022. Currently awaiting the results from the recent fine-needle aspiration. The patient's currently on Zosyn as per infectious diseases. The patient continues on breathing treatments. Prognosis is certainly guarded. No additional recommendations are made. Plan dated 11/06/2022. The patient's doing well. Comfortable. No distress. Currently on room air. Receiving saline at 20 mL an hour. Biopsy was done on November 02. Pathology reports are currently pending. The patient continues on updrafts, and Zosyn. No additional recommendations are made. Prognosis is guarded. We'll continue to follow. Time with Patient: Less than 30
--- NOTE | 2022-11-06 08:46 | XR ---
EXAMINATION TYPE: XR chest 1V portable DATE OF EXAM: 11/06/2022 Comparison: 11/02/2022 Clinical History: 62-year-old male PNA Findings: Known right apical and right upper lobe mass with known destruction and pathologic fractures of right upper ribs. Areas of internal air cavitation are redemonstrated. Some subcutaneous emphysema at the right base of the neck slightly increasing from 12-22 heart normal size. Left lung and pleural spaces are clear. Overall opacity of the right apical mass is enlarging. Impression: 1. Interval enlarging opacity of the known destructive right apical mass. This could reflect adjacent pneumonia. 2. Some increasing subcutaneous emphysema noted at the right base of the neck compared to 11/02/2022.
--- NOTE | 2022-11-06 09:31 | P.CONS ---
History of Present Illness - Reason for Consult Consult date: 11/05/22 lung cancer, pain Requesting physician: Geremias Estevez - Chief Complaint chest pain - History of Present Illness The patient is a 62-year-old male with a [id number] smoking history. He presents with a large right upper lung lesion with invasion/destruction of the first and second ribs. This is highly suspicious for underlying malignancy, but to date the patient has had 2 biopsies at an outside institution both negative. He underwent ultrasound-guided biopsy on Saturday, and we are awaiting these results. The patient and his family report that his oncologic history began in August. At the time, the patient was having right sided-chest pain, and even had some episodes of hemoptysis. He initially underwent biopsy at [facility] in August, which unfortunately was reportedly nondiagnostic. The patient reports he unfortunately had some difficulty obtaining insurance at that time, and ultimately continued his workup through the [facility]. He states that while at the [facility] he had biopsy, as well as imaging that revealed no evidence of distant metastasis. Unfortunately, the patient's condition has worsened over the past couple of weeks, and he presented to the ER on October 31. The patient reports that he has right upper chest wall pain that is present most of the time. The pain can be up to 8-9 out of 10, despite his current pain regimen. He has persistent harsh cough, which also causes the pain to increase. The patient is not having any significant hemoptysis at this time. He has also noticed some swelling in the right upper extremity compared to the left. He also reports a 30 pound weight loss secondary to decreased appetite and some persistent nauseous feeling. The patient did undergo ultrasound-guided biopsy of the right chest wall mass on November 02. We are waiting these results. Review of Systems Constitutional: Reports weakness, Reports weight loss, Denies fever Ears, nose, mouth and throat: Denies headache Cardiovascular: Reports chest pain Respiratory: Reports cough, Reports dyspnea, Reports hemoptysis Gastrointestinal: Denies abdominal pain Genitourinary: Denies flank pain Integumentary: Denies rash Neurological: Denies aphasia, Denies confusion Psychiatric: Denies anxiety, Denies confusion Past Medical History Past Medical History: Pneumonia Additional Past Medical History / Comment(s): 08/2022 R upper lung mass, past pneumonia, born with bronchitis, bilateral pneumothorax at separate times treated with chest tubes, anemia, pt denies hx of copd. History of Any Multi-Drug Resistant Organisms: None Reported Past Surgical History: Orthopedic Surgery Additional Past Surgical History / Comment(s): 08/[address] [facility], 10/2022 R lung bx at [facility], R knee arthroscopic surgery, L wrist ganglion cyst removed, L great toe titanium plate, colonoscopies/benign polypectomies. Past Anesthesia/Blood Transfusion Reactions: No Reported Reaction Smoking Status: Former smoker (50 pack year history of smoking) - Past Family History Mother Family Medical History: Vascular Disorder Additional Family Medical History / Comment(s): Mother at the age of 78yrs from ruptured aortic aneurysm. Father Additional Family Medical History / Comment(s): Pt unable to recall specific health issues with his father. Father is alive in his mid 90s Medications and Allergies Home Medications Medication Instructions Recorded Confirmed Type Escitalopram [Lexapro] 10 mg PO HS 10/31/22 10/31/22 History Ferrous Sulfate [Iron] 325 mg PO HS 10/31/22 10/31/22 History HYDROcodone/APAP 7.5-325MG [[place] 1 tab PO Q6H PRN 10/31/22 10/31/22 History 7.5-325] Allergies Allergy/AdvReac Type Severity Reaction Status Date / Time No Known Allergies Allergy Verified 10/31/22 12:16 Physical Exam Vitals: Vital Signs Temp Pulse Pulse Resp BP Pulse Ox 11/06/22 08:00 18 11/06/22 04:09 97.8 F 95 16 160/71 92 L 11/05/22 20:10 16 11/05/22 19:56 84 11/05/22 19:46 80 11/05/22 19:26 97.5 F L 73 16 131/63 95 11/05/22 15:41 88 11/05/22 15:29 90 11/05/22 11:20 97.3 F L 90 15 137/55 96 11/05/22 11:15 92 11/05/22 11:03 92 Intake and Output 11/05/22 11/06/22 11/06/22 22:59 06:59 14:59 Intake Total 600 Output Total 400 Balance 200 Intake: Oral 600 Output: Urine 400 - Constitutional General appearance: mild distress - EENT Eyes: EOMI, PERRLA ENT: hearing grossly normal - Neck Neck: no lymphadenopathy - Respiratory Respiratory: right: rhonchi, left: CTA - Cardiovascular Rhythm: regular - Gastrointestinal General gastrointestinal: no distended - Integumentary Integumentary: no calor - Neurologic Neurologic: CNII-XII intact - Musculoskeletal Musculoskeletal: generalized weakness - Psychiatric Psychiatric: A&O x's 3, appropriate affect right upper extremity with 1+ edema compared to left. Results CBC & Chem 7: 11/05/22 08:23 11/05/22 08:23 Labs: Abnormal Lab Results - Last 24 Hours (Table) 11/05/22 Range/Units 08:23 WBC 57.2 H* (3.8-10.6) k/uL RBC 3.08 L (4.30-5.90) m/uL Hgb 8.6 L (13.0-17.5) gm/dL Hct 29.1 L (39.0-53.0) % MCHC 29.7 L (31.0-37.0) g/dL Plt Count 480 H (150-450) k/uL Microbiology - Last 24 Hours (Table) 11/02/22 11:00 Gram Stain - Preliminary Chest Tissue Culture - Preliminary 10/31/22 12:40 Blood Culture - Preliminary Blood No Growth after 120 hours 10/31/22 12:40 Blood Culture - Preliminary Blood No Growth after [address] scan - chest: report reviewed, image reviewed Assessment and Plan Assessment: The patient is a 62-year-old male with a [id number]-gbbh smoking history. He presents with a large right upper lung lesion with invasion/destruction of the first and second ribs. This is highly suspicious for underlying malignancy, but to date the patient has had 2 biopsies at an outside institution both negative. He underwent ultrasound-guided biopsy on Saturday, and we are awaiting these results. Plan: 1. Right upper lung mass: As stated above, highly suspicious for underlying malignancy with destructive changes in the ribs. Biopsy performed on November 02, pathology pending at this time. The patient reports having workup at the [facility], and we will review what he has had done at this time. The patient and his family are hopeful to transfer care locally, as this is much closer to their home. 2. Right chest-pain: This is certainly due to the underlying right upper lung mass with rib destruction. This lesion is also likely causing some right upper extremity edema secondary to venous compression. Although we are uncertain of the patient's staging of his cancer, he would at minimum benefit from a palliative course of radiotherapy to the right upper lobe. Considering he has had 2 negative biopsies, we will attempt to verify the pathology prior to initi ation. I am hopeful to get a preliminary report today. 3. Pneumonia: Possible secondary to post obstruction; according to the patient's family he seems to be clinically doing a little bit better. We will continue to follow closely with the patient. Provided we can get some confirmation of underlying malignancy, I will attempt to initiate palliative radiotherapy in the next 1-2 days. If the patient is found to harbor no evidence of distant disease, this could potentially be converted into a more definitive course of therapy provided he shows some improvement in his performance status. Time: I spent 50 minutes with this patient, of which greater than 50% of that time was spent counseling, coordinating care, and reviewing the risks, benefits, and all potential complications of radiation. Time with Patient: Greater than 30
--- NOTE | 2022-11-06 10:05 | US ---
EXAMINATION TYPE: US venous doppler duplex UE RT DATE OF EXAM: 11/06/2022 COMPARISON: None CLINICAL HISTORY: 62-year-old male Swelling. Limited history from patient. SIDE PERFORMED: Right arm. FINDINGS: Right Arm: No evidence of DVT in veins imaged at this time. Lobulated hypoechoic mass incidentally in the right lateral subclavian region measuring at least 6.7 x 7.1 x 4.6 cm. IMPRESSION: 1. No visualized right upper extremity DVT. 2. Partially visualized right apical mass with chest wall invasion extending into the base of the nec k soft tissues.
[2022-11-06 10:26] LABS: HCT 30.3 % (39.0-53.0); Hypochromasia Marked; MCH 27.6 pg (25.0-35.0); MCHC 29.9 g/dL (31.0-37.0); MCV 92.4 fL (80.0-100.0); Mean Platelet Volume 8.1; Platelet Count 497 k/uL (150-450); RBC 3.28 m/uL (4.30-5.90); RDW 14.4 % (11.5-15.5)
--- NOTE | 2022-11-06 10:27 | P.GSCN ---
History of Present Illness Consult date: 11/06/22 Reason for Consult: Possible SVC Requesting physician: Napoleon Ugalde History of present illness: This is a pleasant 62-year-old male who presented to the emergency room on 10/31/2022 with complaints of right chest pain, shortness of breath. Patient apparently started experiencing some shortness of breath and chest pain back in July. He was seen in August at the [place] for workup and there was concern for a right lung mass. [facility], however [facility] biopsy apparently was nondiagnostic. On admission patient had a chest CT angiogram that reported an assessment for pulmonary embolism very limited due to patient breathing during scan as well as suboptimal contrast bolus. However there was a large partially cavitating mass involving the right upper lobe, right apex and adjacent chest wall measuring up to 12.6 cm. There are pathologic fracture to the right first and second ribs and destruction of the right lateral second rib and small portion of the right lateral third rib. Chest wall involvement with soft tissue extension beyond the rib margin by 1.6 cm. Suspect right paratracheal metastatic lymphadenopathy measuring 3.5 cm. There was also air space opacity lateral right upper lobe correlate for postobstructive pneumonitis. Lung biopsy was obtained here at this hospital which is currently pending. Patient has been experiencing right upper extremity swelling and pain. Dr. Schneider from oncology and evaluated patient and believes he has a right upper extremity edema secondary to some venous compression. He reported patient would benefit from palliative course of radiotherapy for right upper lobe. Vascular surgery was consulted for possible SVC syndrome. Patient reports most of his pain is at the right elbow. He complaints of shortness of breath, chest wall discomfort and pain greatest on the right side. Denies any abdominal pain nausea or vomiting currently. Reports 30 pound weight loss in the last 3-4 months. Has decreased appetite. Patient is a 50 year smoker, recently quit. Venous duplex of the right upper extremity currently pending. Review of Systems A 14 point review systems was completed all pertinent positives and negatives as stated in the HPI. Past Medical History Past Medical History: Pneumonia Additional Past Medical History / Comment(s): 08/2022 R upper lung mass, past pneumonia, born with bronchitis, bilateral pneumothorax at separate times treated with chest tubes, anemia, pt denies hx of copd. History of Any Multi-Drug Resistant Organisms: None Reported Past Surgical History: Orthopedic Surgery Additional Past Surgical History / Comment(s): 08/2022 R lung bx at [facility], 10/2022 R lung bx at [facility], R knee arthroscopic surgery, L wrist ganglion cyst rem candie, L great toe titanium plate, colonoscopies/benign polypectomies. Past Anesthesia/Blood Transfusion Reactions: No Reported Reaction Smoking Status: Former smoker (50 pack year history of smoking) - Past Family History Mother Family Medical History: Vascular Disorder Additional Family Medical History / Comment(s): Mother at the age of 78yrs from ruptured aortic aneurysm. Father Additional Family Medical History / Comment(s): Pt unable to recall specific health issues with his father. Father is alive in his mid 90s Medications and Allergies Home Medications Medication Instructions Recorded Confirmed Type Escitalopram [Lexapro] 10 mg PO HS 10/31/22 10/31/22 History Ferrous Sulfate [Iron] 325 mg PO HS 10/31/22 10/31/22 History HYDROcodone/APAP 7.5-325MG [[place] 1 tab PO Q6H PRN 10/31/22 10/31/22 History 7.5-325] Allergies Allergy/AdvReac Type Severity Reaction Status Date / Time No Known Allergies Allergy Verified 10/31/22 12:16 Surgical - Exam Vital Signs Temp Pulse Resp BP Pulse Ox 98.7 F 122 H 24 167/77 95 10/31/22 09:58 10/31/22 09:58 10/31/22 09:58 10/31/22 09:58 10/31/22 09:58 General appearance: The patient is alert, oriented, appears in no acute distress. HET: Head is normocephalic and atraumatic. No neck or facial swelling. Pupils are equal and reactive. Neck: Supple without lymphadenopathy. Trachea midline. Heart: Regular. Lungs: Equal expansion, normal respiratory effort. Patient is tender to palpation along the bilateral rib cages, right greater than left. Abdomen: Soft, nontender, nondistended. Extremities: Normal skin color and turgor. No cyanosis, rash, ulceration, clubbing, or edema. Radial pulses +2 bilaterally. Right upper extremity with swelling, right elbow tenderness. Neurological: No focal deficits. Alert and oriented 3. Results - Labs 11/06/22 10:04 11/06/22 10:04 Abnormal Lab Results - Last 24 Hours (Table) 11/05/22 Range/Units 08:23 WBC 57.2 H* (3.8-10.6) k/uL RBC 3.08 L (4.30-5.90) m/uL Hgb 8.6 L (13.0-17.5) gm/dL Hct 29.1 L (39.0-53.0) % MCHC 29.7 L (31.0-37.0) g/dL Plt Count 480 H (150-450) k/uL Microbiology - Last 24 Hours (Table) 11/02/22 11:00 Gram Stain - Preliminary Chest Tissue Culture - Preliminary 10/31/22 12:40 Blood Culture - Preliminary Blood No Growth after 120 hours 10/31/22 12:40 Blood Culture - Preliminary Blood No Growth after 120 hours - Imaging Comments: Right upper extremity venous duplex reported no visualized right upper extremity DVT. Partially visualized right apical mass with chest wall invasion extending into the base of the neck soft tissues Assessment and Plan Assessment: 1. Right upper lobe mass, with cavitation, rib involvement and chest wall involvement, likely consistent with bronchogenic carcinoma 2. Right-sided chest pain 3. Right upper extremity swelling 4. Tobacco dependence 5. Leukocytosis Plan: 1. Agree with right upper extremity venous duplex 2. Continue symptomatic and supportive care 3. Continue with recommendations from oncology, radiation oncologist 4. Continue with recommendations from pulmonary 5. Chest CT angiogram imaging reviewed by Dr. Montenegro, right upper extremity venous duplex reviewed. At this time there is no recommendation for any vascular surgical intervention. Would continue with recommendations by radiation oncologist with palliative radiotherapy treatment. Also may consider consult to cardiothoracic surgery, WILL defer that to oncology. Thank you for this consultation. The impression and plan of care has been dictated as directed. Dr. Montenegro I performed a history and examination of this patient, discussed the same with the dictator. I agree with the dictator's note ,documented as a scribe. Any additional findings or plans will be noted. Reviewed imaging with the patient and his in full detail. Discussed options for right upper extremity swelling. Would not recommend any intervention until full workup and treatment for mass is completed. Compression will likely improve if mass is treated.
[2022-11-06 10:35] LABS: African American GFR (CKD) >90 (>60 ml/min/1.73 sqM); Anion Gap 7 mmol/L; Blood Urea Nitrogen 9 mg/dL (9-20); Calcium 9.9 mg/dL (8.4-10.2); Carbon Dioxide 26 mmol/L (22-30); Chloride 108 mmol/L (98-107); Glucose 90 mg/dL (74-99); Non-African American GFR(CKD) >90 (>60 ml/min/1.73 sqM); Potassium 3.2 mmol/L (3.5-5.1); Sodium 141 mmol/L (137-145)
[2022-11-06 10:36] LABS: WBC 59.6 k/uL (3.8-10.6)
--- NOTE | 2022-11-06 11:58 | P.PN ---
Subjective Progress Note Date: 11/06/22 Patient is a 62-year-old male with past medical history of right lung mass and [id number] smoking history presents the ED for right-sided chest pain, cough productive of brown sputum, hemoptysis and shortness of breath. Patient gets all of his care from the [facility]. He underwent bronchoscopy and biopsy in August 2022 for right lung mass. Pathology was nondiagnostic at that time. Patient reports undergoing a second bronchoscopy and lung biopsy last week with the [facility] in [place]. He is unaware of the pathology results from this biopsy. He reports worsening cough productive of brown sputum and blood. He reports exertional shortness of breath. He reports right-sided chest pain worsened with deep inspiration and cough. Of note, patient also reports 30 pound weight loss since August, unintentional. He also reports fever and chills. He denies any headache, lower extremity edema, nausea or vomiting, palpitations, changes in urination or bowel habits. He denies any dizziness, numbness/w eakness/tingling of the extremities. In the ED, he was noted to be tachycardic with heart rate in the 120s. Vital signs were otherwise stable. CBC showed WBC count of 65.7 which was lymphocytic in nature with hemoglobin of 10.3 and platelet count of 504. INR was 1.3. CMP showed sodium 134, potassium of 3.3, bicarb of 17, glucose 116, calcium of 11, alkaline phosphatase of 619. Troponin was less than 0.012, EKG showing sinus tachycardia. Lactic acid negative. CRP was 30.6. ESR was 112. CTA chest showed no PE, large cavitary mass involving the right upper lobe, right apex and adjacent chest wall measuring 12.6 cm with pathologic fractures of the right first and second rubs, right paratracheal metastatic lymphadenopathy measuring 3.5 cm, airspace opacity lateral right upper lobe possible postobstructive pneumonitis. Initially, plan was to transfer the patient to [facility] in [place]. Due to lack of bed availability, patient has been admitted for further management of symptoms. Patient underwent CT guided biopsy of the right chest mass. Patient was seen and examined. His is at bedside. He continues to report chest pain with cough. Pain is 10/10 in severity. Coughing up brown sputum. Pain has been largely uncontrolled with Morphine, Lidocaine patch, Toradol and Oxycodone. K 3.2 today. He complains of shortness of breath and right upper arm swelling. General: lethargic, moderate distress, appears at stated age Derm: warm, dry Head: atraumatic, normocephalic, symmetric Eyes: EOMI, no lid lag, anicteric sclera Mouth: no lip lesion, mucus membranes moist Cardiovascular: S1 S2, no murmur, positive posterior tibial pulse bilateral, Lungs: Decreased BS bilateral, rhonchi noted in all lung alvarado , no accessory muscle use Abdominal: soft, nontender to palpation, no guarding, no appreciable organomegaly Ext: no gross muscle atrophy, swelling of the RUE, no contractures Neuro: no focal neuro deficits Psych: Alert, oriented, appropriate affect #RUE swelling Appears to have some vascular compromise in the RUE related to the mass. Venous duplex ordered to rule out DVT. Vascular surgery consulted for further recommendations. #Right upper lobe mass #Sepsis related to hospital-acquired pneumonia #Hemoptysis #Right-sided chest pain #Leukocytosis His leukocytosis is neutrophilic predominant. He also meets sepsis criteria with leukocytosis, tachycadia and positive source of infection. Concern for bronchogenic carcinoma with superimposed pneumonia. ESR, CRP, procalcitonin elevated. Influenza, COVID 19 negative. Continue Zosyn for broad spectrum antibiotic coverage, Vancomycin discontinued by ID. Pain control with Morphine PRN, scheduled Percocet, Toradol scheduled and Lidocaine patch. DuoNeb PRN for SOB/wheezing. Telemetry monitoring. Follow blood culture, sputum culture Pathology results from [facility] in [place] inconclusive. Underwent CT guided biopsy of the right chest mass, pathology pending. Pulmonology, Oncology and Infectious disease on board. #Normocytic anemia Iron studies show anemia of chronic disease. Replace folic acid. #Hypokalemia Replace. #History of tobacco abuse Patient has quit. Resolved: Metabolic acidosis Patient names his decision maker if he cant make decisions for himself. Patient would like to be FULL CODE. Palliative care consulted. Objective - Vital Signs Vital signs: Vital Signs Temp 97.8 F 11/06/22 04:09 Pulse 88 11/06/22 11:34 Resp 18 11/06/22 08:00 BP 160/71 11/06/22 04:09 Pulse Ox 92 L 11/06/22 04:09 FiO2 Intake & Output 11/05/22 11/06/22 11/06/22 18:59 06:59 18:59 Intake Total 600 Output Total 400 300 Balance 200 -300 Weight 77.111 kg Intake: Oral 600 Output: Urine 400 300 - Labs CBC & Chem 7: 11/06/22 10:04 11/06/22 10:04 Labs: Abnormal Lab Results - Last 24 Hours (Table) 11/05/22 11/06/22 11/06/22 Range/Units 08:23 10:04 10:04 WBC 57.2 H* 59.6 H* (3.8-10.6) k/uL RBC 3.08 L 3.28 L (4.30-5.90) m/uL Hgb 8.6 L 9.0 L (13.0-17.5) gm/dL Hct 29.1 L 30.3 L (39.0-53.0) % MCHC 29.7 L 29.9 L (31.0-37.0) g/dL Plt Count 480 H 497 H (150-450) k/uL Potassium 3.2 L (3.5-5.1) mmol/L Chloride 108 H (98-107) mmol/L Microbiology - Last 24 Hours (Table) 11/02/22 11:00 Gram Stain - Preliminary Chest Tissue Culture - Preliminary 10/31/22 12:40 Blood Culture - Preliminary Blood No Growth after 120 hours 10/31/22 12:40 Blood Culture - Preliminary Blood No Growth after 120 hours
[2022-11-06] MEDS: POTASSIUM CHLORIDE 10 MEQ in WATER FOR INJECTION 1 100ML.BAG IVPB SCH ×4 (12:47→17:55)
--- NOTE | 2022-11-06 14:46 | P.CONS ---
History of Present Illness - Reason for Consult Consult date: 11/06/22 Goals of care Requesting physician: Napoleon Ugalde - Chief Complaint Chest pain and hemoptysis - History of Present Illness The patient is a 62-year-old male who presented to the emergency department on 10/31/2022 with complaints of right chest pain, shortness of breath. Patient apparently started experiencing some shortness of breath and chest pain back in July. He was seen in August at the [place] for workup and there was concern for a right lung mass. He subsequently underwent 2 biopsies 1 through the [place] biopsies and 1 through [facility] apparently both were non-diagnostic. On admission patient had a chest CT angiogram that reported an assessment for pul monary embolism very limited due to patient breathing during scan as well as suboptimal contrast bolus. However there was a large partially cavitating mass involving the right upper lobe, right apex and adjacent chest wall measuring up to 12.6 cm. There are pathologic fracture to the right first and second ribs and destruction of the right lateral second rib and small portion of the right lateral third rib. Chest wall involvement with soft tissue extension beyond the rib margin by 1.6 cm. Suspect right paratracheal metastatic lymphadenopathy measuring 3.5 cm. There was also air space opacity lateral right upper lobe correlate for post-obstructive pneumonitis. A third lung biopsy was obtained here at this hospital on 11/02 which is currently pending. Patient has been experiencing right upper extremity swelling and pain. Dr. Schneider from oncology and evaluated patient and believes he has a right upper extremity edema secondary to some venous compression. He reported patient would benefit from palliative course of radiotherapy for right upper lobe. Provided we can get some confirmation of underlying malignancy, he will attempt to initiate palliative radiotherapy in the next 1-2 days. If the patient is found to harbor no evidence of distant disease, this could potentially be converted into a more definitive course of therapy provided he shows some improvement in his perfor pop status. Review of Systems Constitutional: Reports as per HPI Past Medical History Past Medical History: Pneumonia Additional Past Medical History / Comment(s): 08/2022 R upper lung mass, past pneumonia, born with bronchitis, bilateral pneumothorax at separate times treated with chest tubes, anemia, pt denies hx of copd. History of Any Multi-Drug Resistant Organisms: None Reported Past Surgical History: Orthopedic Surgery Additional Past Surgical History / Comment(s): 08/2022 R lung bx at [facility], 10/2022 R lung bx at [facility], R knee arthroscopic surgery, L wrist ganglion cyst removed, L great toe titanium plate, colonoscopies/benign polypectomies. Past Anesthesia/Blood Transfusion Reactions: No Reported Reaction Smoking Status: Former smoker (50 pack year history of smoking) - Past Family History Mother Family Medical History: Vascular Disorder Additional Family Medical History / Comment(s): Mother at the age of 78yrs from ruptured aortic aneurysm. Father Additional Family Medical History / Comment(s): Pt unable to recall specific ealt issues with his father. Father is alive in his mid 90s Medications and Allergies Home Medications Medication Instructions Recorded Confirmed Type Escitalopram [Lexapro] 10 mg PO HS 10/31/22 10/31/22 History Ferrous Sulfate [Iron] 325 mg PO HS 10/31/22 10/31/22 History HYDROcodone/APAP 7.5-325MG [[place] 1 tab PO Q6H PRN 10/31/22 10/31/22 History 7.5-325] Allergies Allergy/AdvReac Type Severity Reaction Status Date / Time No Known Allergies Allergy Verified 10/31/22 12:16 Physical Exam Vitals: Vital Signs Temp Pulse Pulse Resp BP Pulse Ox 11/06/22 11:34 88 11/06/22 11:28 98.0 F 86 18 148/72 99 11/06/22 11:21 92 11/06/22 08:00 18 11/06/22 04:09 97.8 F 95 16 160/71 92 L 11/05/22 20:10 16 11/05/22 19:56 84 11/05/22 19:46 80 11/05/22 19:26 97.5 F L 73 16 131/63 95 11/05/22 15:41 88 11/05/22 15:29 90 Intake and Output 11/05/22 11/06/22 11/06/22 22:59 06:59 14:59 Intake Total 600 Output Total 400 300 Balance 200 -300 Intake: Oral 600 Output: Urine 400 300 General: Well developed, no acute distress. Chronically ill appearing HEENT: Head is atraumatic, normocephalic. CV: Heart regular in rate and rhythm positive S1 and S2. Lungs: Scattered rhonchi to right, CTA to left. Respirations nonlabored. On RA Abdomen/GI: Soft, non-tender, non-distended : No suprapubic tenderness. Musculoskeletal/ Extremities: FOX, No gross atrophy. + generalized weakness Vascular: Radial pulses equal. 2/4. +1 edema to right upper extremity Skin: Warm and dry Neurologic: Awake, alert and oriented times 3, confused at times. CN II-XII grossly intact. No focal deficits. Psychiatric: Appropriate mood and affect. Results CBC & Chem 7: 11/06/22 10:04 11/06/22 10:04 Labs: Abnormal Lab Results - Last 24 Hours (Table) 11/05/22 11/06/22 11/06/22 Range/Units 08:23 10:04 10:04 WBC 57.2 H* 59.6 H* (3.8-10.6) k/uL RBC 3.28 L (4.30-5.90) m/uL Hgb 9.0 L (13.0-17.5) gm/dL Hct 30.3 L (39.0-53.0) % MCHC 29.9 L (31.0-37.0) g/dL Plt Count 497 H (150-450) k/uL Potassium 3.2 L (3.5-5.1) mmol/L Chloride 108 H (98-107) mmol/L Microbiology - Last 24 Hours (Table) 11/02/22 11:00 Gram Stain - Preliminary Chest Tissue Culture - Preliminary 10/31/22 12:40 Blood Culture - Preliminary Blood No Growth after 120 hours 10/31/22 12:40 Blood Culture - Preliminary Blood No Growth after 120 hours Chest x-ray: report reviewed CT scan - chest: report reviewed Venous US: report reviewed Assessment and Plan Assessment: Social * Occupation - Was a Plastic molding injector. Unemployed now * Marital status - for 26 years * Children/grandchildren - 2 daughters from previous marriage, 1 son from current marriage * Residence - House * Who do you reside with - , son, and brother in law * ETOH - No * Tobacco - Current smoker, 50 pack year smoker * Illicit drugs - NO Spiritual/Cultural * A spiritual person - No * Congregational - N/A * Belong to a particular mormonism - No * Beliefs a source of comfort and strength - No * Roman Catholic or cultural practices restrictions - No * EOL considerations/rituals - No Functional Assessment * Able to walk independently - Yes * Assistive devices - No * Able to use the bathroom independently - Yes * Continent - Yes * Require assistance bathing- No * Able to feed self - Yes * Who prepares meals - * How many meals a day eaten - 1-2 * Transportation - Patient does not drive, provides transportation * Able to shop - Yes * Who manages medications - Patient and * Who manages finances - Patient and Psychological/Emotional * Dementia present - No * Insight and judgment - Yes * Depression - No * Suicidal thoughts - No * Good support system - Yes, family * Patients goals - prolonged survival * Frequent hospitalizations - No * Desire to keep coming back to the hospital for treatment - Yes Symptoms * Pain -Chest pain, reports as tolerable. Continue Tylenol, Morphine, Lidoderm patch, Percocet, and Toradol * Fatigue - + generalized weakness and fatigue, Continue PT/OT and Feosol * SOB - None at rest, + sob with activity. On RA. Continue Duoneb, and Zosyn * Insomnia - No * N/V - Occasional, continue Zofran * Anxiety - No * Depression - No, continue Lexapro * Confusion - Yes, occasional * Agitation - No * Hallucinations - No * Appetite/weight loss - Loss of appetite, reports a 30 lb weight loss over the last 3-4 months. Encourage oral intake, continue ensure supplement TIDWM * Dysphagia - No * Constipation - No BM documented * Incontinence - No * Itch - No * Cough - Yes, caraballo sputum with small amount of blood Plan: Summary/Goals - The patient is resting in bed and appears comfortable. His , daughter, and son in law are at the bedside. The patient seemed to get confused occasionally. He would start talking about something random and not related to the conversation at all. The family stated that he recently had pain medication. The patient states his pain is better, but does not go away. The current pain regimen are effective at making his pain tolerable. Information regarding palliative care philosophies and services provided. The patient immediately thought we were trying to put him in hospice and stated "I'm not ready to give up". The differences between hospice and palliative care were discussed. The patient is waiting for his biopsy results. He is eager to start XRT therapy. His goal right now is prolonged survival. He stated he's not even sure he has cancer, they are just pretty sure he does. He was told that it is very likely that he does have cancer. His stated that [facility]. They would like to have treatment in this area, close to home. Will watch for biopsy results closely and follow the patient. Advanced Directives - None on file Code Status - Full Code Thank you for this consultation Cata Mahoney [facility]- Palliative Care [facility] [id number] Email: [email or web address] Time with Patient: Greater than 30
[2022-11-06] MEDS: FERROUS SULFATE 325 MG TAB PO SCH (21:11)
[2022-11-06] MEDS: ESCITALOPRAM 10 MG TAB PO SCH (21:12)
--- NOTE | 2022-11-06 21:23 | P.PN ---
Subjective Progress Note Date: 11/06/22 Principal diagnosis: Right chest wall mass -Biopsy of large right upper lobe mass was performed yesterday without complications -No acute events overnight -He continues to have right chest wall discomfort, which is worse with any cold sensation Objective - Vital Signs Vital signs: Vital Signs Temp 97.9 F 11/06/22 18:56 Pulse 90 11/06/22 20:22 Resp 16 11/06/22 18:56 BP 137/66 11/06/22 18:56 Pulse Ox 95 11/06/22 18:56 FiO2 Intake & Output 11/06/22 11/06/22 11/07/22 06:59 18:59 06:59 Intake Total 600 Output Total 400 500 Balance 200 -500 Intake: Oral 600 Output: Urine 400 500 - Constitutional General appearance: Present: cooperative, no acute distress - EENT Eyes: Present: EOMI - Respiratory Respiratory: right: rhonchi (Right upper lung field) - Cardiovascular Rhythm: regular - Gastrointestinal General gastrointestinal: Present: normal bowel sounds. Absent: tenderness - Integumentary Integumentary: Absent: rash - Labs CBC & Chem 7: 11/06/22 10:04 11/06/22 10:04 Labs: Abnormal Lab Results - Last 24 Hours (Table) 11/06/22 11/06/22 Range/Units 10:04 10:04 WBC 59.6 H* (3.8-10.6) k/uL RBC 3.28 L (4.30-5.90) m/uL Hgb 9.0 L (13.0-17.5) gm/dL Hct 30.3 L (39.0-53.0) % MCHC 29.9 L (31.0-37.0) g/dL Plt Count 497 H (150-450) k/uL Potassium 3.2 L (3.5-5.1) mmol/L Chloride 108 H (98-107) mmol/L Microbiology - Last 24 Hours (Table) 10/31/22 12:40 Blood Culture - Final Blood No Growth after 144 hours 10/31/22 12:40 Blood Culture - Final Blood No Growth after 144 hours 11/02/22 11:00 Gram Stain - Preliminary Chest Tissue Culture - Preliminary Assessment and Plan Assessment: Mr. Aguirre is a 62-year-old gentleman who presented with increased right chest wall discomfort and was found to have large locally advanced right upper lobe mass causing pathologic fractures of the first 2 ribs and extension to the soft tissue of the chest wall (1) Cavitating mass in right upper lung lobe Current Visit: Yes Status: Acute Code(s): J98.4 - OTHER DISORDERS OF LUNG SNOMED Code(s): 027301401 Plan: -Awaiting results of biopsy performed on 11/05/2022 for additional management recommendations -Discussed case with Dr. Schneider of radiation oncology and agree with local radiation therapy to the mass for palliation -This is suspicious for superior sulcus tumor, which is typically treated with concurrent chemotherapy and radiation therapy followed by surgical resection -Currently, he does not appear to be an ideal candidate for chemotherapy based on his current performance status with an ECOG performance status of 2-3 -If this is primary lung malignancy, assessment of PD-L1 status could be considered for potential treatment with immunotherapy if he is determined not to be a candidate for standard systemic immunotherapy as this could be easier tolerated -We discussed the process of initiating transfer of care from the [place] to our clinic with Mr. Aguirre's requiring permission from the [place] to transfer care
[2022-11-07] MEDS: oxyCODONE-APAP 10-325MG 1 EACH TAB PO SCH ×4 (04:15→16:50)
[2022-11-07] MEDS: KETOROLAC 15 MG/ML 1 ML VIAL IVP SCH ×2 (05:47→11:41)
[2022-11-07] MEDS: IPRATROPIUM-ALBUTEROL 3 ML NEB INHALATION SCH ×4 (07:17→20:42)
[2022-11-07] MEDS: LIDOCAINE 5% PATCH TOPICAL SCH (07:58)
[2022-11-07] MEDS: PIPERACILLIN-TAZOBACTAM 3.375 GM in SODIUM CHLORIDE 0.9% 100 ML IVPB SCH (07:59)
[2022-11-07] MEDS: FOLIC ACID 1 MG TAB PO SCH (07:59)
[2022-11-07 08:29] LABS: HCT 29.2 % (39.0-53.0); Hypochromasia Marked; MCH 27.9 pg (25.0-35.0); MCHC 30.7 g/dL (31.0-37.0); MCV 91.1 fL (80.0-100.0); Mean Platelet Volume 7.6; Platelet Count 495 k/uL (150-450); RDW 14.8 % (11.5-15.5)
[2022-11-07 08:36] LABS: African American GFR (CKD) >90 (>60 ml/min/1.73 sqM); Anion Gap 10 mmol/L; Blood Urea Nitrogen 8 mg/dL (9-20); Calcium 9.8 mg/dL (8.4-10.2); Carbon Dioxide 24 mmol/L (22-30); Chloride 106 mmol/L (98-107); Glucose 113 mg/dL (74-99); Non-African American GFR(CKD) >90 (>60 ml/min/1.73 sqM); Potassium 2.9 mmol/L (3.5-5.1); Sodium 140 mmol/L (137-145); WBC 59.9 k/uL (3.8-10.6)
[2022-11-07] MEDS: POTASSIUM CHLORIDE 10 MEQ in WATER FOR INJECTION 1 100ML.BAG IVPB SCH ×6 (09:26→17:13)
[2022-11-07] MEDS: MORPHINE SULFATE 4 MG/ML SYRINGE IVP PRN ×4 (09:31→20:49)
--- NOTE | 2022-11-07 10:31 | P.PN ---
Subjective Progress Note Date: 11/05/22 Principal diagnosis: Cavitating pneumonia Patient is a 62 year old male with a recent diagnosis of right upper lobe cavitating lesion has been biopsies 2 presenting to the hospital with increasing pain to the right side of the chest CT chest did shows large partially cavitating mass involving the right upper With pathological fracture of the right first and second rib and there is concern for possible pneumonia. On today's evaluation that is 11/05/2022 the patient remains to be afebrile, still complaining of right-sided chest pain no worsening though continues to cough occasional sputum no nausea vomiting abdominal pain no diarrhea Objective - Vital Signs Vital signs: Vital Signs Temp 97.3 F L 11/05/22 11:20 Pulse 90 11/05/22 11:20 Resp 15 11/05/22 11:20 BP 137/55 11/05/22 11:20 Pulse Ox 96 11/05/22 11:20 FiO2 Intake & Output 11/04/22 11/05/22 11/05/22 18:59 06:59 18:59 Intake Total 240 300 Output Total 900 800 Balance -660 -500 Intake: Oral 240 300 Output: Urine 900 800 Other: # Voids 1 - Exam GENERAL DESCRIPTION: A middle-aged male lying in bed in no distress RESPIRATORY SYSTEM: Unlabored breathing , decreased breath sounds at bases HEART: S1 S2 regular rate and rhythm , ABDOMEN: Soft , no tenderness EXTREMITIES: No edema feet - Labs CBC & Chem 7: 11/07/22 08:05 11/07/22 08:05 Labs: Abnormal Lab Results - Last 24 Hours (Table) 11/04/22 11/05/22 11/05/22 Range/Units 12:08 08:23 08:23 WBC 65.3 H* 57.2 H* (3.8-10.6) k/uL RBC 3.08 L (4.30-5.90) m/uL Hgb 8.6 L (13.0-17.5) gm/dL Hct 29.1 L (39.0-53.0) % MCHC 29.7 L (31.0-37.0) g/dL Plt Count 480 H (150-450) k/uL Potassium 3.1 L (3.5-5.1) mmol/L Chloride 109 H (98-107) mmol/L Microbiology - Last 24 Hours (Table) 11/02/22 11:00 Gram Stain - Preliminary Chest Tissue Culture - Preliminary 10/31/22 12:40 Blood Culture - Preliminary Blood No Growth after 96 hours 10/31/22 12:40 Blood Culture - Preliminary Blood No Growth after 96 hours Assessment and Plan (1) Cavitating mass in right upper lung lobe Current Visit: Yes Status: Acute Code(s): J98.4 - OTHER DISORDERS OF LUNG SNOMED Code(s): 455735722 (2) Leukocytosis Current Visit: Yes Status: Acute Code(s): D72.829 - ELEVATED WHITE BLOOD CE LL COUNT, UNSPECIFIED SNOMED Code(s): 344020825 Plan: 1patient with right upper lobe cavitary mass high clinic suspicious for malignancy in this patient who did have a bronchoscopy and biopsy done at the [facility] last week with results currently pending, patient presenting to the hospital with worsening right-sided chest pain which is more likely due to his cavitary lung mass with some destruction of the adjacent ribs, underlying post obstructive pneumonia not entirely excluded and will need to cover for the polymicrobial jovanny usually associated with this infection. 2blood and sputum culture had been negative so far 3Patient to continue with Zosyn while monitor clinical course closely and continue supportive care Time with Patient: Less than 30
--- NOTE | 2022-11-07 10:33 | P.PN ---
Subjective Progress Note Date: 11/06/22 Principal diagnosis: Cavitating pneumonia Patient is a 62 year old male with a recent diagnosis of right upper lobe cavitating lesion has been biopsies 2 presenting to the hospital with increasing pain to the right side of the chest CT chest did shows large partially cavitating mass involving the right upper With pathological fracture of the right first and second rib and there is concern for possible pneumonia. On today's evaluation that is 11/06/2022 the patient remains to be afebrile, right upper chest pain some controlled with the pain medication patient denies have any worsening cough or sputum production no nausea vomiting no abdominal pain or diarrhea Objective - Vital Signs Vital signs: Vital Signs Temp 98.0 F 11/06/22 11:28 Pulse 83 11/06/22 16:04 Resp 18 11/06/22 11:28 BP 148/72 11/06/22 11:28 Pulse Ox 99 11/06/22 11:28 FiO2 Intake & Output 11/05/22 11/06/22 11/06/22 18:59 06:59 18:59 Intake Total 600 Output Total 400 300 Balance 200 -300 Weight 77.111 kg Intake: Oral 600 Output: Urine 400 300 - Exam GENERAL DESCRIPTION: A middle-aged male lying in bed in no distress RESPIRATORY SYSTEM: Unlabored breathing , decreased breath sounds at bases HEART: S1 S2 regular rate and rhythm , ABDOMEN: Soft , no tenderness EXTREMITIES: No edema feet - Labs CBC & Chem 7: 11/07/22 08:05 11/07/22 08:05 Labs: Abnormal Lab Results - Last 24 Hours (Table) 11/06/22 11/06/22 Range/Units 10:04 10:04 WBC 59.6 H* (3.8-10.6) k/uL RBC 3.28 L (4.30-5.90) m/uL Hgb 9.0 L (13.0-17.5) gm/dL Hct 30.3 L (39.0-53.0) % MCHC 29.9 L (31.0-37.0) g/dL Plt Count 497 H (150-450) k/uL Potassium 3.2 L (3.5-5.1) mmol/L Chloride 108 H (98-107) mmol/L Microbiology - Last 24 Hours (Table) 10/31/22 12:40 Blood Culture - Final Blood No Growth after 144 hours 10/31/22 12:40 Blood Culture - Final Blood No Growth after 144 hours 11/02/22 11:00 Gram Stain - Preliminary Chest Tissue Culture - Preliminary Assessment and Plan (1) Cavitating mass in right upper lung lobe Current Visit: Yes Status: Acute Code(s): J98.4 - OTHER DISORDERS OF LUNG SNOMED Code(s): 116565020 (2) Leukocytosis Current Visit: Yes Status: Acute Code(s): D72.829 - ELEVATED WHITE BLOOD CELL COUNT, UNSPECIFIED SNOMED Code(s): 401970440 Plan: 1patient with right upper lobe cavitary mass high clinic suspicious for malignancy in this patient who did have a bronchoscopy and biopsy done at the [facility] last week with results currently pending, patient presenting to the hospital with worsening right-sided chest pain which is more likely due to his cavitary lung mass with some destruction of the adjacent ribs, underlying postobstructive pneumonia not entirely excluded and will need to cover for the polymicrobial jovanny usually associated with this infection. 2blood and sputum culture had been negative so far 3Patient with likely malignancy s/p biopsy reports pending possible component of postobstructive pneumonia not entirely excluded on empiric Zosyn. 4elevated white count more likely related to tumor possible tumor necrosis Time with Patient: Less than 30
--- NOTE | 2022-11-07 11:03 | P.PN ---
Subjective Progress Note Date: 11/07/22 Principal diagnosis: Lung mass. The patient is seen today 11/01/2022 in follow-up on the regular medical floor. He is awake and alert in no acute distress. Currently resting comfortably in bed. Maintaining O2 saturations in the 90s on room air. Sputum culture pending. Sodium 140. Potassium 3.3. Chloride 110. Bicarb 20. BUN 10. Creatinine 0.80. Bryant virus not detected. Influenza screen negative. He remains on bronchodilators. Antibiotics in the form of a myosin and Zosyn. He has a productive cough of tannish yellow sputum. The patient states he spoke with a nurse from the [facility] who did tell him his pathology was positive for cancer. We are trying to obtain these results. The patient does have right upper lobe chest wall protrusion. He also has a right subclavian enlarged lymph node. Oncology has been consulted. The patient is seen today 11/02/2022 in follow-up on the regular medical floor. He is currently sitting up in bed. Awake and alert in no acute distress. He is still having significant cough and congestion. Sputum culture pending. Blood cultures reveal no growth. Potassium 3.3. Creatinine 0.82. Continued on Zosyn. Records obtained from the [facility] again showed inconclusive biopsy. He is kept nothing by mouth for possible biopsies today. The patient is seen today 11/03/2022 in follow-up on the regular medical floor. He is awake and alert in no acute distress. He is having ongoing discomfort in the right upper chest area secondary to the and surrounding tissue mass that is invading into the ribs and surrounding tissue. He did undergo a CT-guided biopsy yesterday. Pathology is pending. Medical oncology and radiation oncology are on the case. Awaiting further information from the [facility] in [place]. He is currently on Zosyn and bronchodilators. Morphine and Percocet for adequate pain control. Reevaluated today on 11/04/22, patient is feeling a bit better, remains on antibiotics/Zosyn, no hemoptysis, pain seems to be better controlled, he is not in distress, pathology from his CT-guided needle biopsy is pending. Continues to have leukocytosis with WBC of 65.3 potassium is a bit low being addressed accordingly renal profile is normal Progress note dated 11/05/2022. 62-year-old male seen in room 519. He had a fine-needle of his right upper lobe mass performed on November 02Saturday. Results are currently pending. The patient's on room air. Getting saline at 20 mL an hour. No new blood work today. Blood work from November 04 was reviewed. The patient has been biops ied 3 times including once at [facility], and once at the [place]. Progress note dated 11/06/2022. 62-year-old male again seen in her room 519. He's currently on room air. Getting saline at 20 mL an hour. He had a fine-needle biopsy, of his lung mass, right upper lobe, done on November 02, saturday. Currently, pathology is pending. Patient is resting comfortably without distress. No new labs today. White count from yesterday was 57.2, hemoglobin of 8.6 hematocrit 29.1 and a normal platelet count. Progress note dated 11/07/2022. 62-year-old male, again seen in room 519. Currently on room air. Not getting any IV fluids. The patient had a needle biopsy of the lung mass, right upper lobe, done on November 02. Pathology is still pending. The patient has had 2 previous biopsies, both nondiagnostic. I did speak to Dr. Beltran today. He told me that he just got the slides yesterday, and it appears to be a high-grade non-small cell lung cancer. He will know more once he does some additional staining. White count 59.9, hemoglobin 9, hematocrit 29.2, platelet count 495 ,000. Sodium 140, potassium 2.9, chlorides 106, CO2 24, BUN 8, and creatinine 0.76. Objective - Vital Signs Vital signs: Vital Signs Temp 98.8 F 11/07/22 04:15 Pulse 88 11/07/22 07:30 Resp 18 11/07/22 04:15 BP 159/73 11/07/22 04:15 Pulse Ox 94 L 11/07/22 04:15 FiO2 Intake & Output 11/06/22 11/07/22 11/07/22 18:59 06:59 18:59 Output Total 500 700 Balance -500 -700 Output: Urine 500 700 - Exam No acute distress, oriented 3. Currently on room air. HEENT examination is grossly unremarkable. Neck supple. Full range of motion. No adenopathy thyromegaly or neck vein distention. Cardiovascular examination reveals regular rhythm rate. S1-S2 normal. No S3 or S4. No discernible murmur noted. Heart rate 88 bpm. Lungs reveal bilateral rhonchi. No wheezes or crackles. Breath sounds equal. Room air saturation 94 %. Abdomen soft bowel sounds are heard. No masses or tenderness. Extremities are intact. No cyanosis clubbing or edema. Skin is without rash or lesion. Neurologic examination is brief but nonfocal. - Labs CBC & Chem 7: 11/07/22 08:05 11/07/22 08:05 Labs: Abnormal Lab Results - Last 24 Hours (Table) 11/07/22 11/07/22 Range/Units 08:05 08:05 WBC 59.9 H* (3.8-10.6) k/uL RBC 3.20 L (4.30-5.90) m/uL Hgb 9.0 L (13.0-17.5) gm/dL Hct 29.2 L (39.0-53.0) % MCHC 30.7 L (31.0-37.0) g/dL Plt Count 495 H (150-450) k/uL Potassium 2.9 L (3.5-5.1) mmol/L BUN 8 L (9-20) mg/dL Glucose 113 H (74-99) mg/dL Microbiology - Last 24 Hours (Table) 11/02/22 11:00 Anaerobic Culture - Final Chest 11/02/22 11:00 Gram Stain - Final Chest Tissue Culture - Final 10/31/22 12:40 Blood Culture - Final Blood No Growth after 144 hours 10/31/22 12:40 Blood Culture - Final Blood No Growth after 144 hours Assessment and Plan Assessment: Right upper lobe mass, with cavitation, rib involvement, and chest wall involvement, likely consistent with bronchogenic carcinoma. According to Dr. Beltran, this is likely a high grade non-small cell cancer. Status post fine-needle aspiration by interventional radiology, 11/02/2022. Anorexia/cachexia syndrome, secondary to lung mass. COPD exacerbation. Tobacco dependence syndrome. Status post biopsy 2, once at [facility], and once at the [place]. Plan: Plan dated 11/05/2022. Currently awaiting the results from the recent fine-needle aspiration. The patient's currently on Zosyn as per infectious diseases. The patient continues on breathing treatments. Prognosis is certainly guarded. No additional recommendations are made. Plan dated 11/06/2022. The patient's doing well. Comfortable. No distress. Currently on room air. Receiving saline at 20 mL an hour. Biopsy was done on November 02. Pathology reports are currently pending. The patient continues on updrafts, and Zosyn. No additional recommendations are made. Prognosis is guarded. We'll continue to follow. Plan dated 11/07/2022. The patient's currently not on any supplemental oxygen. Fine-needle biopsy came back showing high-grade non-small cell cancer. Labs, x-rays and medications are reviewed. I will passes onto the oncology nurse. No additional recommendations are made. Time with Patient: Less than 30
[2022-11-07] MEDS ORDERED: polyethylene glycoL 3350 17 GM POWD.PACK PO PRN (11:30)
[2022-11-07] MEDS ORDERED: polyethylene glycoL 3350 17 GM POWD.PACK PO STA (11:31)
[2022-11-07] MEDS: SENNOSIDES-DOCUSATE SODIUM 1 EACH TAB PO SCH ×2 (11:37→20:56)
--- NOTE | 2022-11-07 14:12 | P.PN ---
Subjective Progress Note Date: 11/07/22 Patient is a 62-year-old male with past medical history of right lung mass and [id number] smoking history presents the ED for right-sided chest pain, cough productive of brown sputum, hemoptysis and shortness of breath. Patient gets all of his care from the [place]. He underwent bronchoscopy and biopsy in August 2022 for right lung mass. Pathology was nondiagnostic at that time. Patient reports undergoing a second bronchoscopy and lung biopsy last week with the [place] in [place]. He is unaware of the pathology results from this biopsy. He reports worsening cough productive of brown sputum and blood. He reports exertional shortness of breath. He reports right-sided chest pain worsened with deep inspiration and cough. Of note, patient also reports 30 pound weight loss since August, unintentional. He also reports fever and chills. He denies any headache, lower extremity edema, nausea or vomiting, palpitations, changes in urination or bowel habits. He denies any dizziness, numbness/w eakness/tingling of the extremities. In the ED, he was noted to be tachycardic with heart rate in the 120s. Vital signs were otherwise stable. CBC showed WBC count of 65.7 which was lymphocytic in nature with hemoglobin of 10.3 and platelet count of 504. INR was 1.3. CMP showed sodium 134, potassium of 3.3, bicarb of 17, glucose 116, calcium of 11, alkaline phosphatase of 619. Troponin was less than 0.012, EKG showing sinus tachycardia. Lactic acid negative. CRP was 30.6. ESR was 112. CTA chest showed no PE, large cavitary mass involving the right upper lobe, right apex and adjacent chest wall measuring 12.6 cm with pathologic fractures of the right first and second rubs, right paratracheal metastatic lymphadenopathy measuring 3.5 cm, airspace opacity lateral right upper lobe possible postobstructive pneumonitis. Initially, plan was to transfer the patient to [facility] in [place]. Due to lack of bed availability, patient has been admitted for further management of symptoms. Patient underwent CT guided biopsy of the right chest mass. Patient was seen and examined. He continues to report chest pain with cough. Coughing up brown sputum. Pain has been better controlled with Morphine, Lidocaine patch, Toradol and Oxycodone. K 2.9 today. Patient states that he would like to go home. According to pulmonology note, likely a high grade non- small cell cancer as per pathology. General: lethargic, moderate distress, appears at stated age Derm: warm, dry Head: atraumatic, normocephalic, symmetric Eyes: EOMI, no lid lag, anicteric sclera Mouth: no lip lesion, mucus membranes moist Cardiovascular: S1 S2, no murmur, positive posterior tibial pulse bilateral, Lungs: Decreased BS bilateral, rhonchi noted in all lung alvarado , no accessory muscle use Abdominal: soft, nontender to palpation, no guarding, no appreciable organomegaly Ext: no gross muscle atrophy, swelling of the RUE, no contractures Neuro: no focal neuro deficits Psych: Alert, oriented, appropriate affect #RUE swelling Appears to have some vascular compromise in the RUE related to the mass. Venous duplex negative for DVT. Vascular surgery recommends radiation, high risk for surgery and stent placement. #Right upper lobe mass #Sepsis related to hospital-acquired pneumonia #Hemoptysis #Right-sided chest pain #Leukocytosis His leukocytosis is neutrophilic predominant. He also meets sepsis criteria with leukocytosis, tachycadia and positive source of infection. Concern for bronchogenic carcinoma with superimposed pneumonia. ESR, CRP, procalcitonin elevated. Influenza, COVID 19 negative. Continue Zosyn for broad spectrum antibiotic coverage, Vancomycin discontinued by ID. Pain control with Morphine PRN, scheduled Percocet, Toradol scheduled and Lidocaine patch. DuoNeb PRN for SOB/wheezing. Telemetry monitoring. Follow blood culture, sputum culture Pathology results from [facility] in [place] inconclusive. Underwent CT guided biopsy of the right chest mass, pathology pending. Pulmonology, Oncology and Infectious disease on board. #Normocytic anemia Iron studies show anemia of chronic disease. Replace folic acid. #Hypokalemia Replace. #History of tobacco abuse Patient has quit. Resolved: Metabolic acidosis Patient names his decision maker if he cant make decisions for himself. Patient would like to be FULL CODE. Palliative care consulted. Objective - Vital Signs Vital signs: Vital Signs Temp 98.5 F 11/07/22 13:00 Pulse 78 11/07/22 13:00 Resp 16 11/07/22 13:00 BP 173/69 11/07/22 13:00 Pulse Ox 94 L 11/07/22 13:00 FiO2 Intake & Output 11/06/22 11/07/22 11/07/22 18:59 06:59 18:59 Output Total 500 700 Balance -500 -700 Output: Urine 500 700 - Labs CBC & Chem 7: 11/07/22 08:05 11/07/22 08:05 Labs: Abnormal Lab Results - Last 24 Hours (Table) 11/07/22 11/07/22 Range/Units 08:05 08:05 WBC 59.9 H* (3.8-10.6) k/uL RBC 3.20 L (4.30-5.90) m/uL Hgb 9.0 L (13.0-17.5) gm/dL Hct 29.2 L (39.0-53.0) % MCHC 30.7 L (31.0-37.0) g/dL Plt Count 495 H (150-450) k/uL Potassium 2.9 L (3.5-5.1) mmol/L BUN 8 L (9-20) mg/dL Glucose 113 H (74-99) mg/dL Microbiology - Last 24 Hours (Table) 11/02/22 11:00 Anaerobic Culture - Final Chest 11/02/22 11:00 Gram Stain - Final Chest Tissue Culture - Final 10/31/22 12:40 Blood Culture - Final Blood No Growth after 144 hours 10/31/22 12:40 Blood Culture - Final Blood No Growth after 144 hours
--- NOTE | 2022-11-07 14:59 | P.PN ---
Subjective Progress Note Date: 11/07/22 The patient is a 62-year-old male who presented to the emergency department on 10/31/2022 with complaints of right chest pain, shortness of breath. Patient apparently started experiencing some shortness of breath and chest pain back in July. He was seen in August at the [facility] for workup and there was concern for a right lung mass. He subsequently underwent 2 biopsies 1 through the [facility] biopsies and 1 through [facility] apparently both were non-diagnostic. On admission patient had a chest CT angiogram that reported an assessment for pulmonary embolism very limited due to patient breathing during scan as well as suboptimal contrast bolus. However there was a large partially cavitating mass involving the right upper lobe, right apex and adjacent chest wall measuring up to 12.6 cm. There are pathologic fracture to the right first and second ribs and destruction of the right lateral second rib and small portion of the right lateral third rib. Chest wall involvement with soft tissue extension beyond the rib margin by 1.6 cm. Suspect right paratracheal metastatic lymphadenopathy measuring 3.5 cm. There was also air space opacity lateral right upper lobe correlate for post-obstructive pneumonitis. A third lung biopsy was obtained here at this hospital on 11/02 which is currently pending. Patient has been experiencing right upper extremity swelling and pain. Dr. Schneider from oncology and evaluated patient and believes he has a right upper extremity edema secon constanza to some venous compression. He reported patient would benefit from palliative course of radiotherapy for right upper lobe. Provided we can get some confirmation of underlying malignancy, he will attempt to initiate palliative radiotherapy in the next 1-2 days. If the patient is found to harbor no evidence of distant disease, this could potentially be converted into a more definitive course of therapy provided he shows some improvement in his performance status. 11/06 The patient is resting in bed and appears comfortable. His , daughter, and son in law are at the bedside. The patient seemed to get confused occasionally. He would start talking about something random and not related to the conversation at all. The family stated that he recently had pain medication. The patient states his pain is better, but does not go away. The current pain regimen are effective at making his pain tolerable. Information regarding palliative care philosophies and services provided. The patient immediately thought we were trying to put him in hospice and stated "I'm not ready to give up". The differences between hospice and palliative care were discussed. The patient is waiting for his biopsy results. He is eager to start XRT therapy. His goal right now is prolonged survival. He stated he's not even sure he has cancer, they are just pretty sure he does. He was told that it is very likely that he does have cancer. His stated that she has [facility]. They would like to have treatment in this area, close to home. Will watch for biopsy results closely and follow the patient. Objective - Vital Signs Vital signs: Vital Signs Temp 98.5 F 11/07/22 13:00 Pulse 78 11/07/22 13:00 Resp 16 11/07/22 13:00 BP 173/69 11/07/22 13:00 Pulse Ox 94 L 11/07/22 13:00 FiO2 Intake & Output 11/06/22 11/07/22 11/07/22 18:59 06:59 18:59 Output Total 500 700 Balance -500 -700 Output: Urine 500 700 - Exam General: Well developed, no acute distress. Chronically ill appearing HEENT: Head is atraumatic, normocephalic. CV: Heart regular in rate and rhythm positive S1 and S2. Lungs: Scattered rhonchi to right, CTA to left. Respirations nonlabored. On RA Abdomen/GI: Soft, non-tender, non-distended : No suprapubic tenderness. Musculoskeletal/ Extremities: FOX, No gross atrophy. + generalized weakness Vascular: Radial pulses equal. 2/4. +1 edema to right upper extremity Skin: Warm and dry Neurologic: Awake, alert and oriented times 3, confused at times. CN II-XII grossly intact. No focal deficits. Psychiatric: Appropriate mood and affect. - Labs CBC & Chem 7: 11/07/22 08:05 11/07/22 08:05 Labs: Abnormal Lab Results - Last 24 Hours (Table) 11/07/22 11/07/22 Range/Units 08:05 08:05 WBC 59.9 H* (3.8-10.6) k/uL RBC 3.20 L (4.30-5.90) m/uL Hgb 9.0 L (13.0-17.5) gm/dL Hct 29.2 L (39.0-53.0) % MCHC 30.7 L (31.0-37.0) g/dL Plt Count 495 H (150-450) k/uL Potassium 2.9 L (3.5-5.1) mmol/L BUN 8 L (9-20) mg/dL Glucose 113 H (74-99) mg/dL Microbiology - Last 24 Hours (Table) 11/02/22 11:00 Anaerobic Culture - Final Chest 11/02/22 11:00 Gram Stain - Final Chest Tissue Culture - Final 10/31/22 12:40 Blood Culture - Final Blood No Growth after 144 hours 10/31/22 12:40 Blood Culture - Final Blood No Growth after 144 hours Assessment and Plan Assessment: Symptoms * Pain -Chest pain, reports as tolerable. Continue Tylenol, Morphine, Lidoderm patch, Percocet, and Toradol * Fatigue - + generalized weakness and fatigue, Continue PT/OT and Feosol * SOB - None at rest, + sob with activity. On RA. Continue Duoneb, and Zosyn * Insomnia - No * N/V - Occasional, continue Zofran * Anxiety - No * Depression - No, continue Lexapro * Confusion - Yes, occasional * Agitation - No * Hallucinations - No * Appetite/weight loss - Loss of appetite, reports a 30 lb weight loss over the last 3-4 months. Encourage oral intake, continue ensure supplement TIDWM * Dysphagia - No * Constipation - No BM documented * Incontinence - No * Itch - No * Cough - Yes, caraballo sputum with small amount of blood Plan: Summary/Goals - The patient is awake, talkative, and confused at times. He appears comfortable. His brother, Chaz, is present. Chaz is very anxious and wants to know what is taking so long to get the biopsy pathology report. He is concerned that we are holding back treatment until the insurance issues are handled. It was explained to him that the patient's was [facility] a very long time. We are in the process of transferring care from the [facility] to [facility] clinic. The patient and his family would like his his treatment closer to home. Chaz was also reassured that we are not holding up treatment for any insurance issues. He is scheduled to have a MRI today. The pathology report will determine his course of treatment and is expected to be finalized soon. His Zoila was updated via telephone. Advanced Directives - None on file Code Status - Full Code Thank you for this consultation Cata Mahoney [facility] Palliative [facility] [id number] Email: [email or web address]
[2022-11-07] MEDS ORDERED: oxyCODONE-APAP 10-325MG 1 EACH TAB PO PRN (16:30)
--- NOTE | 2022-11-07 17:35 | P.PN ---
Subjective Progress Note Date: 11/07/22 Principal diagnosis: cavitating Lung mass In follow-up today patient does report 1 episode of hemoptysis, he recently may have had some blood in his urine as well. His pain in the right chest/shoulder comes and goes, he will have spikes in his pain. The right upper extremity s welling is a little bit better. He has ambulated in the hallways daily with physical therapy. Objective - Vital Signs Vital signs: Vital Signs Temp 98.5 F 11/07/22 13:00 Pulse 84 11/07/22 16:04 Resp 16 11/07/22 13:00 BP 173/69 11/07/22 13:00 Pulse Ox 94 L 11/07/22 13:00 FiO2 Intake & Output 11/06/22 11/07/22 11/07/22 18:59 06:59 18:59 Output Total 500 700 Balance -500 -700 Output: Urine 500 700 - Constitutional General appearance: Present: average body habitus, cooperative, mild distress - EENT Eyes: Present: anicteric sclerae, EOMI ENT: Present: hearing grossly normal - Respiratory Respiratory: right: rhonchi, left: CTA - Cardiovascular Rhythm: regular Heart sounds: normal: S1, S2 Abnormal Heart Sounds: Absent: systolic murmur, diastolic murmur, rub, S3 Gallop, S4 Gallop, click, other - Peripheral edema leg Peripheral Edema: bilateral: None - Gastrointestinal General gastrointestinal: Present: normal bowel sounds, soft - Neurologic Neurologic: Present: CNII-XII intact - Musculoskeletal Musculoskeletal: Present: strength equal bilaterally - Psychiatric Psychiatric: Present: A&O x's 3, appropriate affect, intact judgment & insight - Labs CBC & Chem 7: 11/07/22 08:05 11/07/22 08:05 Labs: Abnormal Lab Results - Last 24 Hours (Table) 11/07/22 11/07/22 Range/Units 08:05 08:05 WBC 59.9 H* (3.8-10.6) k/uL RBC 3.20 L (4.30-5.90) m/uL Hgb 9.0 L (13.0-17.5) gm/dL Hct 29.2 L (39.0-53.0) % MCHC 30.7 L (31.0-37.0) g/dL Plt Count 495 H (150-450) k/uL Potassium 2.9 L (3.5-5.1) mmol/L BUN 8 L (9-20) mg/dL Glucose 113 H (74-99) mg/dL Microbiology - Last 24 Hours (Table) 11/02/22 11:00 Anaerobic Culture - Final Chest 11/02/22 11:00 Gram Stain - Final Chest Tissue Culture - Final 10/31/22 12:40 Blood Culture - Final Blood No Growth after 144 hours 10/31/22 12:40 Blood Culture - Final Blood No Growth after 144 hours Assessment and Plan (1) Cavitating mass in right upper lung lobe Current Visit: Yes Status: Acute Priority: High Code(s): J98.4 - OTHER DISORDERS OF LUNG SNOMED Code(s): 308915683 (2) Hemoptysis Current Visit: Yes Status: Acute Priority: High Code(s): R04.2 - HEMOPTYSIS SNOMED Code(s): 31658575 (3) Leukocytosis Current Visit: Yes Status: Acute Priority: High Code(s): D72.829 - ELEVATED WHITE BLOOD CELL COUNT, UNSPECIFIED SNOMED Code(s): 999520062 Plan: Pathology has confirmed malignancy. Pending special staining for primary source and subtype. Once staining is completed, we will be requesting cellblocks to be sent for NGS and PDL 1 testing. MRI of the brain ordered as well as nuclear medicine bone scan to complete staging. There is a CT of the chest abdomen and pelvis that was done at the [facility], no reported metastatic disease. Depending on the length of time to have PET scan done, this may be ordered outpatient. Radiation Oncologist and Medical Oncologist discussed the case at length. Went back and met with the family to review plan of care-as it had changed from earlier in the day. Plan is to start radiation to the symptomatic RUL lung mass. Chemotherapy will be started in the next 1-2 weeks outpatient. Next, adequate pain management so the patient can be discharged. All pain medications were removed from the patient's medication list except for morphine, dose increased to 5 mg every 3 hours. In 24 hours we will calculate for a dose for [facility] ER and use [facility] IR for breakthrough pain. Patient is on an aggressive bowel regimen for prevention of narcotic-induced constipation. There is a f/u appt with Dr. Herb Already documented in the discharge plan. All of the patient and his family's questions were answered to their satisfaction. They all agreed with understanding the plan at this time. Greater than 50 minutes was spent counseling and coordinating care. Time with Patient: Greater than 30
[2022-11-07] MEDS ORDERED: KETOROLAC 15 MG/ML 1 ML VIAL IVP SCH (18:00)
[2022-11-07] MEDS: ESCITALOPRAM 10 MG TAB PO SCH (20:49)
[2022-11-07] MEDS: FERROUS SULFATE 325 MG TAB PO SCH (20:49)
[2022-11-07] MEDS: AMOXIC-POT CLAV 875-125MG 1 EACH TAB PO SCH (20:49)
[2022-11-07] MEDS: ONDANSETRON 4 MG/2 ML VIAL IVP PRN (22:27)
--- NOTE | 2022-11-07 23:58 | P.PN ---
Subjective Progress Note Date: 11/07/22 Principal diagnosis: Cavitating pneumonia Patient is a 62 year old male with a recent diagnosis of right upper lobe cavitating lesion has been biopsies 2 presenting to the hospital with increasing pain to the right side of the chest CT chest did shows large partially cavitating mass involving the right upper With pathological fracture of the right first and second rib and there is concern for possible pneumonia. On today's evaluation that is 11/07/2022 the patient remains to be afebrile patient denies any chest pain at slightly decreased intensity patient denies any worsening cough or sputum production no nausea vomiting no abdominal pain no diarrhea Objective - Vital Signs Vital signs: Vital Signs Temp 98.8 F 11/07/22 04:15 Pulse 92 11/07/22 11:24 Resp 18 11/07/22 04:15 BP 159/73 11/07/22 04:15 Pulse Ox 94 L 11/07/22 04:15 FiO2 Intake & Output 11/06/22 11/07/22 11/07/22 18:59 06:59 18:59 Output Total 500 700 Balance -500 -700 Output: Urine 500 700 - Exam GENERAL DESCRIPTION: A middle-aged male lying in bed in no distress RESPIRATORY SYSTEM: Unlabored breathing , decreased breath sounds at bases HEART: S1 S2 regular rate and rhythm , ABDOMEN: Soft , no tenderness EXTREMITIES: No edema feet - Labs CBC & Chem 7: 11/07/22 08:05 11/07/22 08:05 Labs: Abnormal Lab Results - Last 24 Hours (Table) 11/07/22 11/07/22 Range/Units 08:05 08:05 WBC 59.9 H* (3.8-10.6) k/uL RBC 3.20 L (4.30-5.90) m/uL Hgb 9.0 L (13.0-17.5) gm/dL Hct 29.2 L (39.0-53.0) % MCHC 30.7 L (31.0-37.0) g/dL Plt Count 495 H (150-450) k/uL Potassium 2.9 L (3.5-5.1) mmol/L BUN 8 L (9-20) mg/dL Glucose 113 H (74-99) mg/dL Microbiology - Last 24 Hours (Table) 11/02/22 11:00 Anaerobic Culture - Final Chest 11/02/22 11:00 Gram Stain - Final Chest Tissue Culture - Final 10/31/22 12:40 Blood Culture - Final Blood No Growth after 144 hours 10/31/22 12:40 Blood Culture - Final Blood No Growth after 144 hours Assessment and Plan (1) Cavitating mass in right upper lung lobe Current Visit: Yes Status: Acute Priority: High Code(s): J98.4 - OTHER DISORDERS OF LUNG SNOMED Code(s): 721351492 (2) Leukocytosis Current Visit: Yes Status: Acute Priority: High Code(s): D72.829 - ELEVATED WHITE BLOOD CELL COUNT, UNSPECIFIED SNOMED Code(s): 321022500 Plan: 1patient with right upper lobe cavitary mass high clinic suspicious for malignancy in this patient who did have a bronchoscopy and biopsy done at the [facility] last week with results currently pending, patient presenting to the hospital with worsening right-sided chest pain which is more likely due to his cavitary lung mass with some destruction of the adjacent ribs, underlying postobstructive pneumonia not entirely excluded and will need to cover for the polymicrobial jovanny usually associated with this infection. 2blood and sputum culture had been negative so far 3Patient with likely malignancy s/p biopsy reports pending possible component of postobstructive pneumonia not entirely excluded. 4with a sputum culture negative for any resistant pathogen we will switch antibiotic therapy to oral Augmentin. 5leukocytosis more likely possible tumor necrosis related and will be monitored closely Time with Patient: Less than 30
[2022-11-08] MEDS: MORPHINE SULFATE 4 MG/ML SYRINGE IVP PRN ×7 (00:43→20:39)
--- NOTE | 2022-11-08 06:25 | P.PN ---
Subjective Progress Note Date: 11/08/22 Principal diagnosis: Lung mass. The patient is seen today 11/01/2022 in follow-up on the regular medical floor. He is awake and alert in no acute distress. Currently resting comfortably in bed. Maintaining O2 saturations in the 90s on room air. Sputum culture pending. Sodium 140. Potassium 3.3. Chloride 110. Bicarb 20. BUN 10. Creatinine 0.80. Bryant virus not detected. Influenza screen negative. He remains on bronchodilators. Antibiotics in the form of a myosin and Zosyn. He has a productive cough of tannish yellow sputum. The patient states he spoke with a nurse from the [facility] who did tell him his pathology was positive for cancer. We are trying to obtain these results. The patient does have right upper lobe chest wall protrusion. He also has a right subclavian enlarged lymph node. Oncology has been consulted. The patient is seen today 11/02/2022 in follow-up on the regular medical floor. He is currently sitting up in bed. Awake and alert in no acute distress. He is still having significant cough and congestion. Sputum culture pending. Blood cultures reveal no growth. Potassium 3.3. Creatinine 0.82. Continued on Zosyn. Records obtained from the [facility], [place], operated by [facility] again showed inconclusive biopsy. He is kept nothing by mouth for possible biopsies today. The patient is seen today 11/03/2022 in follow-up on the regular medical floor. He is awake and alert in no acute distress. He is having ongoing discomfort in the right upper chest area secondary to the and surrounding tissue mass that is invading into the ribs and surrounding tissue. He did undergo a CT-guided biopsy yesterday. Pathology is pending. Medical oncology and radiation oncology are on the case. Awaiting further information from the [facility] in [place]. He is currently on Zosyn and bronchodilators. Morphine and Percocet for adequate pain control. Reevaluated today on 11/04/22, patient is feeling a bit better, remains on antibiotics/Zosyn, no hemoptysis, pain seems to be better controlled, he is not in distress, pathology from his CT-guided needle biopsy is pending. Continues to have leukocytosis with WBC of 65.3 potassium is a bit low being addressed accordingly renal profile is normal Progress note dated 11/05/2022. 62-year-old male seen in room 519. He had a fine-needle of his right upper lobe mass performed on November 02Saturday. Results are currently pending. The patient's on room air. Getting saline at 20 mL an hour. No new blood work today. Blood work from November 04 was reviewed. The patient has been biops ied 3 times including once at [facility], and once at the [place]. Progress note dated 11/06/2022. 62-year-old male again seen in her room 519. He's currently on room air. Getting saline at 20 mL an hour. He had a fine-needle biopsy, of his lung mass, right upper lobe, done on November 02, saturday. Currently, pathology is pending. Patient is resting comfortably without distress. No new labs today. White count from yesterday was 57.2, hemoglobin of 8.6 hematocrit 29.1 and a normal platelet count. Progress note dated 11/07/2022. 62-year-old male, again seen in room 519. Currently on room air. Not getting any IV fluids. The patient had a needle biopsy of the lung mass, right upper lobe, done on November 02. Pathology is still pending. The patient has had 2 previous biopsies, both nondiagnostic. I did speak to Dr. Beltran today. He told me that he just got the slides yesterday, and it appears to be a high-grade non-small cell lung cancer. He will know more once he does some additional staining. White count 59.9, hemoglobin 9, hematocrit 29.2, platelet count 495 ,000. Sodium 140, potassium 2.9, chlorides 106, CO2 24, BUN 8, and creatinine 0.76. Progress note dated 11/08/2022. Spoke with Dr. Beltran yesterday. The patient apparently has a high-grade non- small cell cancer. The presumption is that it's primary bronchogenic cancer. Apparently, the patient will have a bone scan performed, and may start radiation today. From the pulmonary standpoint, there is no reason for the patient to be in the hospital. He's on room air. He is getting saline at 20 mL an hour. His respiratory status is stable. No new lab data today is yet. Lab data from the November 07 was already reviewed. All microbiologic studies are negative. Patient on Augmentin, although I question the need for even that. Objective - Vital Signs Vital signs: Vital Signs Temp 97.8 F 11/08/22 04:16 Pulse 91 11/08/22 04:16 Resp 17 11/08/22 04:16 BP 154/73 11/08/22 04:16 Pulse Ox 94 L 11/08/22 04:16 FiO2 Intake & Output 11/07/22 11/07/22 11/08/22 06:59 18:59 06:59 Intake Total 1240 Output Total 700 700 Balance -700 1240 -700 Intake: Intake, IV Titration 700 Amount Piperacillin-Tazobactam 3 100 .375 gm In Sodium Chloride 0.9% 100 ml @ 25 mls/hr IVPB Q8HR [facility]AN Rx# :[id number] Potassium Chloride 10 meq 600 In Water For Injection 1 100ml.bag @ 100 mls/hr IVPB Q1H [facility]UMAN Rx#: [id number] Oral 540 Output: Urine 700 700 Other: Voiding Method Urinal - Exam No acute distress, oriented 3. Currently on room air. HEENT examination is grossly unremarkable. Neck supple. Full range of motion. No adenopathy thyromegaly or neck vein distention. Cardiovascular examination reveals regular rhythm rate. S1-S2 normal. No S3 or S4. No discernible murmur noted. Heart rate 91 bpm. Lungs reveal bilateral rhonchi. No wheezes or crackles. Breath sounds equal. Room air saturation 94 %. Abdomen soft bowel sounds are heard. No masses or tenderness. Extremities are intact. No cyanosis clubbing or edema. Skin is without rash or lesion. Neurologic examination is brief but nonfocal. - Labs CBC & Chem 7: 11/07/22 08:05 11/07/22 22:33 Labs: Abnormal Lab Results - Last 24 Hours (Table) 11/07/22 11/07/22 11/07/22 Range/Units 08:05 08:05 22:33 WBC 59.9 H* (3.8-10.6) k/uL RBC 3.20 L (4.30-5.90) m/uL Hgb 9.0 L (13.0-17.5) gm/dL Hct 29.2 L (39.0-53.0) % MCHC 30.7 L (31.0-37.0) g/dL Plt Count 495 H (150-450) k/uL Potassium 2.9 L 2.9 L (3.5-5.1) mmol/L BUN 8 L (9-20) mg/dL Glucose 113 H (74-99) mg/dL Assessment and Plan Assessment: Right upper lobe mass, with cavitation, rib involvement, and chest wall involvement, likely consistent with bronchogenic carcinoma. According to Dr. Beltran, this is likely a high grade non-small cell cancer. Status post fine-needle aspiration by interventional radiology, 11/02/2022. Anorexia/cachexia syndrome, secondary to lung mass. COPD exacerbation. Tobacco dependence syndrome. Status post biopsy 2, once at [facility], and once at the [place]. Plan: Plan dated 11/05/2022. Currently awaiting the results from the recent fine-needle aspiration. The patient's currently on Zosyn as per infectious diseases. The patient continues on breathing treatments. Prognosis is certainly guarded. No additional recommendations are made. Plan dated 11/06/2022. The patient's doing well. Comfortable. No distress. Currently on room air. Receiving saline at 20 mL an hour. Biopsy was done on November 02. Pathology reports are currently pending. The patient continues on updrafts, and Zosyn. No additional recommendations are made. Prognosis is guarded. We'll continue to follow. Plan dated 11/07/2022. The patient's currently not on any supplemental oxygen. Fine-needle biopsy came back showing high-grade non-small cell cancer. Labs, x-rays and medications are reviewed. I will passes onto the oncology nurse. No additional recommendations are made. Plan dated 11/08/2022. From the pulmonary standpoint, there is no reason for the patient to be in the hospital. The patient is on room air. No respiratory issues at this time. According to his nurse, the patient will have a bone scan performed. He apparently is going to start radiation therapy. Chemotherapy to be started in 1-2 weeks. We'll follow moving forward as needed. No additional recommendations are made. Room air saturation between 94 - 96%. The patient does continue on saline at 20 mL an hour. Likely does not need that as well. Also on antibiotics, but all cultures are negative. Time with Patient: Less than 30
[2022-11-08] MEDS: IPRATROPIUM-ALBUTEROL 3 ML NEB INHALATION SCH ×4 (08:19→19:47)
[2022-11-08] MEDS: SENNOSIDES-DOCUSATE SODIUM 1 EACH TAB PO SCH ×2 (08:42→20:39)
[2022-11-08] MEDS: AMOXIC-POT CLAV 875-125MG 1 EACH TAB PO SCH ×2 (08:42→20:39)
[2022-11-08] MEDS: FOLIC ACID 1 MG TAB PO SCH (08:42)
[2022-11-08] MEDS: LIDOCAINE 5% PATCH TOPICAL SCH (08:43)
[2022-11-08 10:46] LABS: African American GFR (CKD) 118.1 (60.0-200.0); Anion Gap 12.2 mmol/L (10.00-18.00); BUN/Creat Ratio 9.19 Ratio (12.00-20.00); Blood Urea Nitrogen 6.4 mg/dL (9.0-27.0); Calcium 10.1 mg/dL (8.7-10.3); Carbon Dioxide 25.6 mmol/L (20.0-27.5); Non-African American GFR(CKD) 101.9 (60.0-200.0)
--- NOTE | 2022-11-08 11:16 | MR ---
EXAMINATION TYPE: MR brain wo/w con DATE OF EXAM: 11/08/2022 COMPARISON: None HISTORY: Right lung cancer, hemoptysis, staging. TECHNIQUE: Multiplanar, multisequence images of the brain and brainstem is performed without and with IV contras t, utilizing 7.5 mL intravenous Gadavist . FINDINGS: Diffusion weighted images demonstrate no evidence of a recent infarct or other diffusion ab normality. There is scattered areas of abnormal signal involving the white matter which are nonspeci fic. No definite enhancing masses. However, there is heterogeneous signal pattern to the clivus at th e skull base and cervical spine suspicious for metastases. Changes of chronic sinusitis are noted. Nasal septal deviation seen. Orbits are symmetric. No midline shift. Midline structures demonstrate normal morphology. The craniocervical junction appears within normal limits. Post contrast images demonstrate no abnormal enhancement. The dural venous sinuses appear pa tent. The visualized sinuses are clear and the globes are intact. IMPRESSION: 1. Heterogeneous signal pattern to the clivus involving the skull base can be seen with osseous metas tases. Recommend CT scan with bone windows. 2. No definite intraparenchymal area of enhancement seen to suggest intraparenchymal metastases. 3. Mild degenerative change with a few scattered areas of focal nonspecific abnormal white matter sig nal. No enhancement. Therefore remote white matter ischemia favored.
[2022-11-08 11:37] LABS: HCT 28.8 % (39.6-50.0); HGB 8.9 g/dL (13.0-17.0); MCH 28.4 pg (27.0-32.0); MCHC 30.9 g/dL (32.0-37.0); Mean Platelet Volume 9.6 fL (9.5-12.2); NRBC Per 100 WBC 0 /100 WBCS (0.0-0.0); Platelet Count 504 X 10*3/uL (140-440); RBC 3.13 X 10*6/uL (4.40-5.60); RDW 15.4 % (11.5-14.5)
--- NOTE | 2022-11-08 11:49 | P.PN ---
Subjective Progress Note Date: 11/08/22 Patient is a 62-year-old male with past medical history of right lung mass and [id number] smoking history presents the ED for right-sided chest pain, cough productive of brown sputum, hemoptysis and shortness of breath. Patient gets all of his care from the [facility]. He underwent bronchoscopy and biopsy in August 2022 for right lung mass. Pathology was nondiagnostic at that time. Patient reports undergoing a second bronchoscopy and lung biopsy last week with the [facility] in [place]. He is unaware of the pathology results from this biopsy. He reports worsening cough productive of brown sputum and blood. He reports exertional shortness of breath. He reports right-sided chest pain worsened with deep inspiration and cough. Of note, patient also reports 30 pound weight loss since August, unintentional. He also reports fever and chills. He denies any headache, lower extremity edema, nausea or vomiting, palpitations, changes in urination or bowel habits. He denies any dizziness, numbness/w eakness/tingling of the extremities. In the ED, he was noted to be tachycardic with heart rate in the 120s. Vital signs were otherwise stable. CBC showed WBC count of 65.7 which was lymphocytic in nature with hemoglobin of 10.3 and platelet count of 504. INR was 1.3. CMP showed sodium 134, potassium of 3.3, bicarb of 17, glucose 116, calcium of 11, alkaline phosphatase of 619. Troponin was less than 0.012, EKG showing sinus tachycardia. Lactic acid negative. CRP was 30.6. ESR was 112. CTA chest showed no PE, large cavitary mass involving the right upper lobe, right apex and adjacent chest wall measuring 12.6 cm with pathologic fractures of the right first and second rubs, right paratracheal metastatic lymphadenopathy measuring 3.5 cm, airspace opacity lateral right upper lobe possible postobstructive pneumonitis. Initially, plan was to transfer the patient to [facility] in [place]. Due to lack of bed availability, patient has been admitted for further management of symptoms. Patient underwent CT guided biopsy of the right chest mass. Patient not available in his room at the time of this note. He is starting radiation therapy today. Likely a high grade non-small cell cancer as per pathology. Bone scan and MRI brain ordered. #RUE swelling Appears to have some vascular compromise in the RUE related to the mass. Venous duplex negative for DVT. Vascular surgery recommends radiation, high risk for surgery and stent placement. #Right upper lobe mass #Sepsis related to hospital-acquired pneumonia #Hemoptysis #Right-sided chest pain #Leukocytosis His leukocytosis is neutrophilic predominant. He also meets sepsis criteria with leukocytosis, tachycadia and positive source of infection. Concern for bronchogenic carcinoma with superimposed pneumonia. ESR, CRP, procalcitonin elevated. Influenza, COVID 19 negative. Zosyn switched to Augmentin by ID. Pain control with Morphine PRN, scheduled Percocet, Toradol scheduled and Lid ocaine patch. DuoNeb PRN for SOB/wheezing. Telemetry monitoring. Follow blood culture, sputum culture Pathology results from [facility] in [place] inconclusive. Likely a high grade non-small cell cancer as per pathology, official report pending. MRI brain, Bone scan pending. Plans for radiation today, discussed with Dr. Schneider yesterday. Pulmonology, Oncology and Infectious disease on board. #Normocytic anemia Iron studies show anemia of chronic disease. Replace folic acid. #Hypokalemia Replace. #History of tobacco abuse Patient has quit. Resolved: Metabolic acidosis Patient names his decision maker if he cant make decisions for himself. Patient would like to be FULL CODE. Palliative care consulted. Care discussed with the . Objective - Vital Signs Vital signs: Vital Signs Temp 98.3 F 11/08/22 11:36 Pulse 87 11/08/22 11:36 Resp 20 11/08/22 11:36 BP 146/81 11/08/22 11:36 Pulse Ox 93 L 11/08/22 11:36 FiO2 Intake & Output 11/07/22 11/08/22 11/08/22 18:59 06:59 18:59 Intake Total 1240 Output Total 700 Balance 1240 -700 Intake: Intake, IV Titration 700 Amount Piperacillin-Tazobactam 3 100 .375 gm In Sodium Chloride 0.9% 100 ml @ 25 mls/hr IVPB Q8HR TRUMAN Rx# :[id number] Potassium Chloride 10 meq 600 In Water For Injection 1 100ml.bag @ 100 mls/hr IVPB Q1H TRUMAN Rx#: [id number] Oral 540 Output: Urine 700 Other: Voiding Method Urinal - Labs CBC & Chem 7: 11/08/22 07:50 12/08/22 07:50 Labs: Abnormal Lab Results - Last 24 Hours (Table) 11/07/22 11/08/22 11/08/22 Range/Units 22:33 07:50 07:50 WBC 67.59 H* (4.50-10.00) X 10*3/uL RBC 3.13 L (4.40-5.60) X 10*6/uL Hgb 8.9 L (13.0-17.0) g/dL Hct 28.8 L (39.6-50.0) % MCHC 30.9 L (32.0-37.0) g/dL RDW 15.4 H (11.5-14.5) % Plt Count 504 H (140-440) X 10*3/uL Absolute Nucleated RBC 0.02 H (0.00-0.00) X 10*3/uL Potassium 2.9 L 3.0 L (3.5-5.1) mmol/L BUN 6.4 L (9.0-27.0) mg/dL BUN/Creatinine Ratio 9.19 L (12.00-20.00) Ratio
[2022-11-08 12:06] LABS: WBC 67.59 X 10*3/uL (4.50-10.00)
--- NOTE | 2022-11-08 12:38 | P.PN ---
Progress Note - Text Progress Note Date: 11/08/22 The patient is not in his room. Attempted to see him twice today. The RN states he has a MRI, bone scan, and radiation therapy scheduled for today. Will follow up with patient and family tomorrow, Cata Mahoney [facility] Palliative Care/Urology [facility] [id number] Email: [email or web address]
[2022-11-08] MEDS: POTASSIUM CHLORIDE 10 MEQ in WATER FOR INJECTION 1 100ML.BAG IVPB SCH ×4 (12:50→20:33)
--- NOTE | 2022-11-08 15:23 | NM ---
EXAMINATION TYPE: NM bone scan whole body DATE OF EXAM: 11/08/2022 COMPARISON: NONE HISTORY: lung cancer, initial staging Delayed whole-body scanning was performed following the injection of 21.8 mCi Tc 99m MDP. Images acq uired 7.25 hours post injection. FINDINGS: Homogeneous distribution radiotracer throughout the axial and appendicular skeleton without evidence for metastatic disease. There is degenerative uptake about the shoulders, sternoclavicular joints, le ft wrist and bilateral knees as well as the left midfoot. IMPRESSION: No scintigraphic evidence to suggest metastatic disease.
[2022-11-08 20:31] VITALS: RESP 16
[2022-11-08] MEDS: ESCITALOPRAM 10 MG TAB PO SCH (20:39)
[2022-11-08] MEDS: FERROUS SULFATE 325 MG TAB PO SCH (20:39)
[2022-11-09] MEDS: MORPHINE SULFATE 4 MG/ML SYRINGE IVP PRN ×5 (00:45→15:08)
--- NOTE | 2022-11-09 06:35 | P.PN ---
Subjective Progress Note Date: 11/09/22 Principal diagnosis: Lung mass. The patient is seen today 11/01/2022 in follow-up on the regular medical floor. He is awake and alert in no acute distress. Currently resting comfortably in bed. Maintaining O2 saturations in the 90s on room air. Sputum culture pending. Sodium 140. Potassium 3.3. Chloride 110. Bicarb 20. BUN 10. Creatinine 0.80. Bryant virus not detected. Influenza screen negative. He remains on bronchodilators. Antibiotics in the form of a myosin and Zosyn. He has a productive cough of tannish yellow sputum. The patient states he spoke with a nurse from the [facility] who did tell him his pathology was positive for cancer. We are trying to obtain these results. The patient does have right upper lobe chest wall protrusion. He also has a right subclavian enlarged lymph node. Oncology has been consulted. The patient is seen today 11/02/2022 in follow-up on the regular medical floor. He is currently sitting up in bed. Awake and alert in no acute distress. He is still having significant cough and congestion. Sputum culture pending. Blood cultures reveal no growth. Potassium 3.3. Creatinine 0.82. Continued on Zosyn. Records obtained from the [facility] again showed inconclusive biopsy. He is kept nothing by mouth for possible biopsies today. The patient is seen today 11/03/2022 in follow-up on the regular medical floor. He is awake and alert in no acute distress. He is having ongoing discomfort in the right upper chest area secondary to the and surrounding tissue mass that is invading into the ribs and surrounding tissue. He did undergo a CT-guided biopsy yesterday. Pathology is pending. Medical oncology and radiation oncology are on the case. Awaiting further information from the [facility] in [place]. He is currently on Zosyn and bronchodilators. Morphine and Percocet for adequate pain control. Reevaluated today on 11/04/22, patient is feeling a bit better, remains on antibiotics/Zosyn, no hemoptysis, pain seems to be better controlled, he is not in distress, pathology from his CT-guided needle biopsy is pending. Continues to have leukocytosis with WBC of 65.3 potassium is a bit low being addressed accordingly renal profile is normal Progress note dated 11/05/2022. 62-year-old male seen in room 519. He had a fine-needle of his right upper lobe mass performed on November 02Saturday. Results are currently pending. The patient's on room air. Getting saline at 20 mL an hour. No new blood work today. Blood work from November 04 was reviewed. The patient has been biops ied 3 times including once at [facility], and once at the [facility]. Progress note dated 11/06/2022. 62-year-old male again seen in her room 519. He's currently on room air. Getting saline at 20 mL an hour. He had a fine-needle biopsy, of his lung mass, right upper lobe, done on November 02, saturday. Currently, pathology is pending. Patient is resting comfortably without distress. No new labs today. White count from yesterday was 57.2, hemoglobin of 8.6 hematocrit 29.1 and a normal platelet count. Progress note dated 11/07/2022. 62-year-old male, again seen in room 519. Currently on room air. Not getting any IV fluids. The patient had a needle biopsy of the lung mass, right upper lobe, done on November 02. Pathology is still pending. The patient has had 2 previous biopsies, both nondiagnostic. I did speak to Dr. Beltran today. He told me that he just got the slides yesterday, and it appears to be a high-grade non-small cell lung cancer. He will know more once he does some additional staining. White count 59.9, hemoglobin 9, hematocrit 29.2, platelet count 495 ,000. Sodium 140, potassium 2.9, chlorides 106, CO2 24, BUN 8, and creatinine 0.76. Progress note dated 11/08/2022. Spoke with Dr. Beltran yesterday. The patient apparently has a high-grade non- small cell cancer. The presumption is that it's primary bronchogenic cancer. Apparently, the patient will have a bone scan performed, and may start radiation today. From the pulmonary standpoint, there is no reason for the patient to be in the hospital. He's on room air. He is getting saline at 20 mL an hour. His respiratory status is stable. No new lab data today is yet. Lab data from the November 07 was already reviewed. All microbiologic studies are negative. Patient on Augmentin, although I question the need for even that. Progress note dated 11/09/2022. Fine-needle biopsy revealed a poorly differentiated malignant neoplasm, with final characterization pending. The patient was to have a bone scan yesterday. The patient's currently on room air. He was seen by radiation oncology, and medical oncology as well. From the pulmonary standpoint, the patient is stable, and has been stable. He's on room air. He seen today in room 519. Bone scan was negative for metastatic disease. No new laboratory data as yet. From November 08, white count 68,000, hemoglobin 8.9, hematocrit 28.8, platelet count 504,000. Sodium 140, potassium 3, chlorides 102, CO2 26, BUN 6.4, creatinine 0.7. Objective - Vital Signs Vital signs: Vital Signs Temp 97.9 F 11/09/22 05:00 Pulse 93 11/09/22 05:00 Resp 16 11/09/22 05:00 BP 137/77 11/09/22 05:00 Pulse Ox 95 11/09/22 05:00 FiO2 Intake & Output 11/08/22 11/08/22 11/09/22 06:59 18:59 06:59 Intake Total 590 Output Total 700 1100 Balance -700 -510 Weight 77.111 kg Intake: Oral 590 Output: Urine 700 1100 Other: Voiding Method Urinal Toilet Urinal - Exam No acute distress, oriented 3. Currently on room air. HEENT examination is grossly unremarkable. Neck supple. Full range of motion. No adenopathy thyromegaly or neck vein distention. Cardiovascular examination reveals regular rhythm rate. S1-S2 normal. No S3 or S4. No discernible murmur noted. Heart rate 93 bpm. Lungs reveal bilateral rhonchi. No wheezes or crackles. Breath sounds equal. Room air saturation 95 %. Abdomen soft bowel sounds are heard. No masses or tenderness. Extremities are intact. No cyanosis clubbing or edema. Skin is without rash or lesion. Neurologic examination is brief but nonfocal. - Labs CBC & Chem 7: 11/08/22 07:50 11/08/22 07:50 Labs: Abnormal Lab Results - Last 24 Hours (Table) 11/08/22 11/08/22 Range/Units 07:50 07:50 WBC 67.59 H* (4.50-10.00) X 10*3/uL RBC 3.13 L (4.40-5.60) X 10*6/uL Hgb 8.9 L (13.0-17.0) g/dL Hct 28.8 L (39.6-50.0) % MCHC 30.9 L (32.0-37.0) g/dL RDW 15.4 H (11.5-14.5) % Plt Count 504 H (140-440) X 10*3/uL Absolute Nucleated RBC 0.02 H (0.00-0.00) X 10*3/uL Potassium 3.0 L (3.5-5.5) mmol/L BUN 6.4 L (9.0-27.0) mg/dL BUN/Creatinine Ratio 9.19 L (12.00-20.00) Ratio Assessment and Plan Assessment: Right upper lobe mass, with cavitation, rib involvement, and chest wall invol vement. According to Dr. Beltran, this is likely a high grade non-small cell cancer, final determination pending. Status post fine-needle aspiration by interventional radiology, 11/02/2022. Anorexia/cachexia syndrome, secondary to lung mass. COPD exacerbation. Tobacco dependence syndrome. Status post biopsy 2, once at [facility], and once at the [place]. Plan: Plan dated 11/05/2022. Currently awaiting the results from the recent fine-needle aspiration. The patient's currently on Zosyn as per infectious diseases. The patient continues on breathing treatments. Prognosis is certainly guarded. No additional recommendations are made. Plan dated 11/06/2022. The patient's doing well. Comfortable. No distress. Currently on room air. Receiving saline at 20 mL an hour. Biopsy was done on November 02. Pathology reports are currently pending. The patient continues on updrafts, and Zosyn. No additional recommendations are made. Prognosis is guarded. We'll continue to follow. Plan dated 11/07/2022. The patient's currently not on any supplemental oxygen. Fine-needle biopsy came back showing high-grade non-small cell cancer. Labs, x-rays and medications are reviewed. I will passes onto the oncology nurse. No additional recommendations are made. Plan dated 11/08/2022. From the pulmonary standpoint, there is no reason for the patient to be in the hospital. The patient is on room air. No respiratory issues at this time. According to his nurse, the patient will have a bone scan performed. He apparently is going to start radiation therapy. Chemotherapy to be started in 1-2 weeks. We'll follow moving forward as needed. No additional recommendations are made. Room air saturation between 94 - 96%. The patient does continue on saline at 20 mL an hour. Likely does not need that as well. Also on antibiotics, but all cultures are negative. Plan dated 11/09/2022. Pulmonary standpoint, the patient stable, and has been stable. The patient's on room air. Saturations are 95%. The final pathology is currently pending some additional staining. Apparently this is a high-grade non-small cell cancer. Bone scan was negative. There was some mention in the pathology report of possible sarcoma. We will continue to follow as needed. Time with Patient: Less than 30
[2022-11-09] MEDS: IPRATROPIUM-ALBUTEROL 3 ML NEB INHALATION SCH ×3 (07:46→15:22)
[2022-11-09] MEDS: LIDOCAINE 5% PATCH TOPICAL SCH (08:18)
[2022-11-09] MEDS: AMOXIC-POT CLAV 875-125MG 1 EACH TAB PO SCH (08:18)
[2022-11-09] MEDS: SENNOSIDES-DOCUSATE SODIUM 1 EACH TAB PO SCH (08:19)
[2022-11-09] MEDS: FOLIC ACID 1 MG TAB PO SCH (08:19)
[2022-11-09] MEDS ORDERED: MORPHINE CONC SOLN 10mg/0.5mL ORAL SYRG PO PRN (10:10)
[2022-11-09] MEDS ORDERED: MORPHINE SULFATE ER 15 MG TABLET PO ONE (10:30)
[2022-11-09 13:11] VITALS: BP 128/72; TEMP 97.5
--- NOTE | 2022-11-09 13:20 | P.PN ---
Subjective Progress Note Date: 11/09/22 Principal diagnosis: cavitating Lung mass In follow-up today right upper extremity swelling is stable, pain medications do help with patient's pain, he is never at a 0. He is ambulated, he is tolerating oral intake. Objective - Vital Signs Vital signs: Vital Signs Temp 97.5 F L 11/09/22 13:00 Pulse 99 11/09/22 13:00 Resp 16 11/09/22 13:00 BP 128/72 11/09/22 13:00 Pulse Ox 93 L 11/09/22 13:00 FiO2 Intake & Output 11/08/22 11/09/22 11/09/22 18:59 06:59 18:59 Intake Total 590 Output Total 1100 Balance -510 Weight 77.111 kg Intake: Oral 590 Output: Urine 1100 Other: Voiding Method Toilet Urinal - Constitutional General appearance: Present: average body habitus, cooperative, mild distress - EENT Eyes: Present: anicteric sclerae, EOMI ENT: Present: hearing grossly normal - Respiratory Respiratory: right: diminished - Cardiovascular Rhythm: regular Heart sounds: normal: S1, S2 Abnormal Heart Sounds: Absent: systolic murmur, diastolic murmur, rub, S3 Gallop, S4 Gallop, click, other - Peripheral edema leg Peripheral Edema: bilateral: None - Neurologic Neurologic: Present: CNII-XII intact - Musculoskeletal Musculoskeletal: Present: strength equal bilaterally - Psychiatric Psychiatric: Present: A&O x's 3, appropriate affect, intact judgment & insight - Labs CBC & Chem 7: 11/08/22 07:50 11/08/22 07:50 - Imaging and Cardiology Nuclear medicine bone scan report reviewed MRI of the brain report reviewed Assessment and Plan (1) Cavitating mass in right upper lung lobe Current Visit: Yes Status: Acute Priority: High Code(s): J98.4 - OTHER DISORDERS OF LUNG SNOMED Code(s): 668529713 (2) Hemoptysis Current Visit: Yes Status: Acute Priority: High Code(s): R04.2 - HEMOPTYSIS SNOMED Code(s): 59311334 (3) Leukocytosis Current Visit: Yes Status: Acute Priority: High Code(s): D72.829 - ELEVATED WHITE BLOOD CELL COUNT, UNSPECIFIED SNOMED Code(s): 841734410 Plan: Pathology has confirmed malignancy. Pending special staining for primary source and subtype,Has been sent out for additional staining and consultation. Once staining is completed, we will be requesting cellblocks to be sent for NGS and PDL 1 testing, If appropriate. MRI of the brain Report reviewed, no evidence of intraparenchymal metastases, is a small area in the bone, nuclear medicine bone scan was negative. This will continue to be monitored. CT CAP done at the [facility], no reported metastatic disease. Reviewed with patient that at this time he appears to have locally advanced disease. Depending on the length of time to have PET scan done, this may still be planned to be ordered outpatient. Plan is to complete radiation therapy. Systemic treatment is going to be planned to start about one week after completion of radiation therapy, as long as we have final diagnosis. Follow-up appointments for Radiation Oncology as well as Medical Oncology are both in the chart. Case discussed with find the. Conversion from IV pain medication to extended release oral morphine 40 mg by mouth 3 times a day. Roxanol 5 mg by mouth every 3 hours for breakthrough. Discussed realistic pain management, patient may not get 20 at this time. Prescriptions sent to [facility]. Patient Instructed on continuing aggressive bowel regimen for prevention of narcotic-induced constipation. Did tell the patient to hold oral iron for now as this is additionally constipating. Case discussed with Internal Medicine. Greater than 40 minutes was spent counseling and coordinating care. Dr. websterests: I have seen and examined patient, performed H&P, developed impression and plan of care. Discussed with dictator. Agree with documentation, dictated as a scribe
--- NOTE | 2022-11-09 14:01 | P.DS ---
Providers Date of admission: 10/31/22 12:15 Expected date of discharge: 11/09/22 Attending physician: Napoleon Ugalde MD Consults: 10/31/22 12:19 Consult Physician Urgent Consulting Provider: Amador Cano Consult Reason/Comments: Right cavitating lung mass, hemoptysis Do you want consulting provider notified?: Yes Consult Physician Urgent Consulting Provider: Geremias Estevez Consult Reason/Comments: right cavitating lung mass, hemoptysis Do you want consulting provider notified?: Yes 10/31/22 16:35 Consult Physician Routine Consulting Provider: Binh Neal Consult Reason/Comments: Right upper lobe cavitary lesion Do you want consulting provider notified?: Yes 11/06/22 09:41 Consult Physician Routine Consulting Provider: Hiro Schneider Consult Reason/Comments: palliative XRT Do you want consulting provider notified?: Already Contacted 11/06/22 10:25 Consult to Palliative Care Routine Consulting Provider: Cata Mahoney Consult Reason/Comments: GOC Do you want consulting provider notified?: Yes Primary care physician: [facility] Course: 62-year-old male with past medical history of right lung mass and [id number] smoking history presents the ED for right-sided chest pain, cough productive of brown sputum, hemoptysis and shortness of breath. Patient gets all of his care from the [facility]. He underwent bronchoscopy and biopsy in August 2022 for right lung mass. Pathology was nondiagnostic at that time. Patient reports undergoing a second bronchoscopy and lung biopsy last week with the [facility] in [place]. He presented with worsening cough productive of brown sputum and blood, exertional shortness of breath as well as right-sided chest pain worsened with deep inspiration and cough. Of note, patient also reports 30 pound weight loss since August, unintentional. He also reports fever and chills. No headache, lower extremity edema, nausea or vomiting, palpitations, changes in urination or bowel habits. He denies any dizziness, numbness/weakness/tingling of the extremities. In the ED, he was noted to be tachycardic with heart rate in the 120s. Vital signs were otherwise stable. CBC showed WBC count of 65.7 which was lymphocytic in nature with hemoglobin of 10.3 and platelet count of 504. INR was 1.3. CMP showed sodium 134, potassium of 3.3, bicarb of 17, glucose 116, calcium of 11, alkaline phosphatase of 619. Troponin was less than 0.012, EKG showing sinus tachycardia. Lactic acid negative. CRP was 30.6. ESR was 112. CTA chest showed no PE, large cavitary mass involving the right upper lobe, right apex and adjacent chest wall measuring 12.6 cm with pathologic fractures of the right first and second ribs, right paratracheal metastatic lymphadenopathy measuring 3.5 cm, airspace opacity lateral right upper lobe possible postobstructive pneumonitis. Underlying postobstructive pneumonia was not entirely excluded, he was covered with zosyn, was followed by ID, this was later switched to augmentin, he recieved 10 days of abx. No need for abx on discharge. Blood and sputum culture had been negative. He had some RUE swelling, appeared to have some vascular compromise in the RUE related to the mass. Venous duplex negative for DVT. He was seen by vascular surgery who recommended radiation for the mass, no vascular surgery procedure to place a stent was advised. Pathology has confirmed malignancy lung cancer, non small cell. MRI of the brain showed no evidence of intraparenchymal metastases, nuclear medicine bone scan was negative. CT CAP done at the [facility], no reported metastatic disease. He was seen by oncology service, outpatient care was established with oncologist and radiation oncology. Case was d/w oncology upon discharge Patient was seen and examined [id number] on the day of discharge 11/09 Time for discharge 35 minutes. Plan - Discharge Summary Discharge Rx Participant: No New Discharge Prescriptions: New Morphine Sulfate ER [Ms Contin] 40 mg PO Q8H 3 Days #1 tab MORPHINE ORAL VALERIA CONC 20mg/mL [Roxanol Oral Soln Conc 20MG/ML] 5 mg PO Q3H PRN 3 Days #1 ml PRN Reason: Pain Discontinued HYDROcodone/APAP 7.5-325MG [[place] 7.5-325] 1 tab PO Q6H PRN PRN Reason: Pain Ferrous Sulfate [Iron] 325 mg PO HS No Action Escitalopram [Lexapro] 10 mg PO HS Discharge Medication List Escitalopram [Lexapro] 10 mg PO HS 10/31/22 [History] MORPHINE ORAL VALERIA CONC 20mg/mL [Roxanol Oral Soln Conc 20MG/ML] 5 mg PO Q3H PRN 3 Days #1 ml 11/09/22 [Rx] Morphine Sulfate ER [Ms Contin] 40 mg PO Q8H 3 Days #1 tab 11/09/22 [Rx] Follow up Appointment(s)/Referral(s): Geremias Estevez MD [STAFF PHYSICIAN] - 11/29/22 10:00 am (This appt is at the office located behind [address]) Hiro Schneider MD [STAFF PHYSICIAN] - 11/12/22 8:15 am (Appt is for radiatio n) [facility] [Primary Care Provider] - 1-2 days Activity/Diet/Wound Care/Special Instructions: Narcotic prescriptions sent from the oncologist office to [facility]
[2022-11-09] MEDS ORDERED: MORPHINE ORAL SOLN 10 MG/5 ML CUP PO PRN (15:15)
[2022-11-09 15:26] VITALS: PULSE 84
--- NOTE | 2022-11-15 14:34 | P.PN ---
Subjective Progress Note Date: 11/08/22 Principal diagnosis: Cavitating pneumonia Patient is a 62 year old male with a recent diagnosis of right upper lobe cavitating lesion has been biopsies 2 presenting to the hospital with increasing pain to the right side of the chest CT chest did shows large partially cavitating mass involving the right upper With pathological fracture of the right first and second rib and there is concern for possible pneumonia. On today's evaluation that is 11/08/2022 the patient continues to be afebrile , the patient chest pain has slightly decreased intensity patient denies any worsening cough or sputum production no nausea vomiting no abdominal pain no diarrhea Objective - Vital Signs Vital signs: Vital Signs Temp 98.3 F 11/08/22 11:36 Pulse 90 11/08/22 12:26 Resp 20 11/08/22 11:36 BP 146/81 11/08/22 11:36 Pulse Ox 93 L 11/08/22 11:36 FiO2 Intake & Output 11/07/22 11/08/22 11/08/22 18:59 06:59 18:59 Intake Total 1240 Output Total 700 Balance 1240 -700 Weight 77.111 kg Intake: Intake, IV Titration 700 Amount Piperacillin-Tazobactam 3 100 .375 gm In Sodium Chloride 0.9% 100 ml @ 25 mls/hr IVPB Q8HR [facility] Rx# :[id number] Potassium Chloride 10 meq 600 In Water For Injection 1 100ml.bag @ 100 mls/hr IVPB Q1H [facility] Rx#: [id number] Oral 540 Output: Urine 700 Other: Voiding Method Urinal - Exam GENERAL DESCRIPTION: A middle-aged male lying in bed in no distress RESPIRATORY SYSTEM: Unlabored breathing , decreased breath sounds at bases HEART: S1 S2 regular rate and rhythm , ABDOMEN: Soft , no tenderness EXTREMITIES: No edema feet - Labs CBC & Chem 7: 11/08/22 07:50 11/08/22 07:50 Labs: Abnormal Lab Results - Last 24 Hours (Table) 11/07/22 11/08/22 11/08/22 Range/Units 22:33 07:50 07:50 WBC 67.59 H* (4.50-10.00) X 10*3/uL RBC 3.13 L (4.40-5.60) X 10*6/uL Hgb 8.9 L (13.0-17.0) g/dL Hct 28.8 L (39.6-50.0) % MCHC 30.9 L (32.0-37.0) g/dL RDW 15.4 H (11.5-14.5) % Plt Count 504 H (140-440) X 10*3/uL Absolute Nucleated RBC 0.02 H (0.00-0.00) X 10*3/uL Potassium 2.9 L 3.0 L (3.5-5.1) mmol/L BUN 6.4 L (9.0-27.0) mg/dL BUN/Creatinine Ratio 9.19 L (12.00-20.00) Ratio Assessment and Plan (1) Cavitating mass in right upper lung lobe Status: Acute Priority: High Code(s): J98.4 - OTHER DISORDERS OF LUNG SNO MED Code(s): 735105858 (2) Leukocytosis Status: Acute Priority: High Code(s): D72.829 - ELEVATED WHITE BLOOD CELL COUNT, UNSPECIFIED SNOMED Code(s): 389603996 Plan: 1patient with right upper lobe cavitary mass high clinic suspicious for malignancy in this patient who did have a bronchoscopy and biopsy done at the [facility] last week with results currently pending, patient presenting to the hospital with worsening right-sided chest pain which is more likely due to his cavitary lung mass with some destruction of the adjacent ribs, underlying postobstructive pneumonia not entirely excluded and will need to cover for the polymicrobial jovanny usually associated with this infection. 2blood and sputum culture had been negative so far 3Patient with likely malignancy s/p biopsy reports pending possible component of postobstructive pneumonia not entirely excluded. 4patient sputum culture negative for any resistant pathogen patient to continue with oral Augmentin. 5leukocytosis more likely possible tumor necrosis related and will be monitored closely Time with Patient: Less than 30
--- NOTE | 2022-11-15 14:35 | P.PN ---
Subjective Progress Note Date: 11/09/22 Principal diagnosis: Cavitating pneumonia Patient is a 62 year old male with a recent diagnosis of right upper lobe cavitating lesion has been biopsies 2 presenting to the hospital with increasing pain to the right side of the chest CT chest did shows large partially cavitating mass involving the right upper With pathological fracture of the right first and second rib and there is concern for possible pneumonia. On today's evaluation that is 11/09/2022 the patient denies any fever or any chills, the patient right-sided chest pain some controlled with the pain m edication, patient denies any worsening cough or sputum production no nausea vomiting no abdominal pain no diarrhea Objective - Vital Signs Vital signs: Vital Signs Temp 97.5 F L 11/09/22 13:00 Pulse 99 11/09/22 13:00 Resp 16 11/09/22 13:00 BP 128/72 11/09/22 13:00 Pulse Ox 93 L 11/09/22 13:00 FiO2 Intake & Output 11/08/22 11/09/22 11/09/22 18:59 06:59 18:59 Intake Total 590 Output Total 1100 Balance -510 Weight 77.111 kg Intake: Oral 590 Output: Urine 1100 Other: Voiding Method Toilet Urinal - Exam GENERAL DESCRIPTION: A middle-aged male lying in bed in no distress RESPIRATORY SYSTEM: Unlabored breathing , decreased breath sounds at bases HEART: S1 S2 regular rate and rhythm , ABDOMEN: Soft , no tenderness EXTREMITIES: No edema feet - Labs CBC & Chem 7: 11/08/22 07:50 11/08/22 07:50 Assessment and Plan (1) Cavitating mass in right upper lung lobe Status: Acute Priority: High Code(s): J98.4 - OTHER DISORDERS OF LUNG SNOMED Code(s): 239769853 (2) Leukocytosis Status: Acute Priority: High Code(s): D72.829 - ELEVATED WHITE BLOOD CELL COUNT, UNSPECIFIED SNOMED Code(s): 774372741 Plan: 1patient with right upper lobe cavitary mass high clinic suspicious for ma lignancy in this patient who did have a bronchoscopy and biopsy done at the [facility] last week with results currently pending, patient presenting to the hospital with worsening right-sided chest pain which is more likely due to his cavitary lung mass with some destruction of the adjacent ribs, underlying postobstructive pneumonia not entirely excluded and will need to cover for the polymicrobial jovanny usually associated with this infection. 2blood and sputum culture had been negative so far 3Patient with likely malignancy s/p biopsy reports pending possible component of postobstructive pneumonia not entirely excluded. 4patient sputum culture negative for any resistant pathogen patient currently being treated with Augmentin to continue for about a week on discharge and close outpatient follow-up Time with Patient: Less than 30
--- NOTE | 2022-11-15 16:16 | CDI ---
Documentation Clarification Form Date: 11/15/2022 03:59:00 PM From: Akiko King Admit Date: 10/31/2022 12:15:00 PM Patient Name: Azar Aguirre Visit Number: [id number] Discharge Date: 11/09/2022 05:57:00 PM ATTENTION: The Clinical Documentation Specialists (CDI) and [facility] Coding Staff appreciate your assistance in clarifying documentation. Please respond to the clarification below the line at the bottom and electronically sign. The CDI & [facility] Coding staff will review the response and follow-up if needed. Please note: Queries are made part of the Legal Health Record. If you have any questions, please contact the author of this message via ITS. Dr. Binh Neal Conflicting documentation has been found in the medical record. Please provide additional clarification. H&P 10/31/22 and subsequent progress notes 11/01- 11/08 Dr Napoleon Ugalde documented Right upper lobe mass. Sepsis related to hospital acquired pneumonia. Consult Note 10/31 and subsequent progress notes 11/01- 11/09 and Discharge Summary 11/09 states: "postobstructive pneumonitis was felt to be likely" and "Possible postobstructive pneumonia was not excluded" History/Risk Factors: 62 year old male, right upper love cavitary mass- high clinical suspicion for malignancy- chest wall bx performed during admission- positive for malignancy. worsening right sided chest pain. Recent bronchoscopy procedure performed at [facility] 1 week prior to current admission. Clinical Indicators: chest pain, coughing up blood, right upper lung tumor, recent surgery WBC: 65.7 T: 98.7 P: 122 R: 24 BP: 167/77 O2 93 on room air Treatment: covered with zosyn, followed by ID, switched to augmentin, received 10 days of antibiotics Please clarify which diagnosis is most appropriate: [ x] Postobstructive pneumonia [ ] Healthcare Aquired Pneumonia- specify bacteria if known: [ ] Pneumonia Ruled out [ ] Other (please specify) [ ] Unable to determine MTDD
--- NOTE | 2022-11-15 16:42 | CDI ---
Pt Name: Azar Aguirre CONFIDENTIAL MR#: [id number] Adm Date: 10/31/2022 12:15:00 PM Printed:11/15/2022 Physician Documentation Request Page 2 of 2 Physicians Documentation Request This Form is Not a Permanent Document in the Medical Record Pt Name: Azar Aguirre MR #: [id number] Payor: [employer] Unit/Bed: [id number] Adm Date: 10/31/2022 12:15:00 PM Reviewer: Akiko King Query Date: 11/15/2022 04:20:00 PM By submitting this query, we are merely seeking further clarification of documentation to accurately reflect all conditions that you are monitoring, evaluating, treating or that extend the hospitalization or utilize additional resources of care. Please utilize your independent clinical judgment when addressing the question(s) below. Dear Doctor Dayanna Willis, The patients Clinical Indicators include: SEE BELOW Sepsis is documented in the ED note 10/[address] Stephenson, H&P 10/31, and subsequent progress notes 11/01 - 11/08 by Robbie. Sepsis was not carried out by any additional providers or the discharge summary, and clarification is requested. History/Risk Factors: 62 year old male, right upper love cavitary mass- high clinical suspicion for malignancy- chest wall bx performed during admission- positive for malignancy. Worsening right sided chest pain. Recent bronchoscopy procedure performed at [facility] 1 week prior to current admission. Clinical indicators: diagnosed by ED and Dr Ugalde: " patient meets sepsis criteria with leukocytosis, tachycardia, and positive source of infection". Patient was diagnosed with Sepsis due to HAC pneumonia vs Postobstructive Pneumonia. VS: T: 98.7 P: 122 R: 24 BP: 167/77 O2 93 on room air WBC: 65.[address]: large cavitating mass right upper lobe, right apex, and adjacent chest wall. pathological fractures 1st and 2nd rib, chest wall involvement with soft tissue extension. Some airspace opacity lateral right upper lobe, correlate for postobstructive pneumonitis Treatment: vancomycin, zosyn, switched to augmentin, received 10 days of antibiotics Please Clarify if Sepsis: [ ] Sepsis confirmed, remains under treatment [ ] Sepsis confirmed, resolved [ ] Sepsis ruled out [ ] Other condition, please specify [ ] Unable to determine PLEASE DOCUMENT ANY ADDITIONAL DIAGNOSES AND/OR SPECIFICITY IN THE PROGRESS NOTES AND/OR DISCHARGE SUMMARY. Agreed & documented Clinically unable to determine/unknown Disagree with the above request Need to discuss Sepsis confirmed, remains under treatment MTDD
== END 2022-11-09 17:57 | disposition home health service (06) | DRG 871 ==
LOC: EC 09:57 → 5NMEDONC 12:15
PROVIDERS: ADMIT Family Medicine; ATTEND Family Medicine
PROC: 0WB83ZX Excision of Chest Wall, Percutaneous Approach, Diagnostic (ICD-10-PCS; principal; 2022-10-31)
PROC: DB021ZZ Beam Radiation of Lung using Photons 1 - 10 MeV (ICD-10-PCS; 2022-11-08)
DX: A41.9 Sepsis, unspecified organism (principal); J18.9 Pneumonia, unspecified organism; C34.11 Malignant neoplasm of upper lobe, right bronchus or lung; E87.20 Acidosis, unspecified; M84.48XA Pathological fracture, other site, initial encounter for fracture; R04.2 Hemoptysis; J44.1 Chronic obstructive pulmonary disease with (acute) exacerbation; R64 Cachexia; J44.0 Chronic obstructive pulmonary disease with (acute) lower respiratory infection; F17.210 Nicotine dependence, cigarettes, uncomplicated; E87.6 Hypokalemia; Z20.822 Contact with and (suspected) exposure to COVID-19; Y95 Nosocomial condition; R59.0 Localized enlarged lymph nodes; D72.823 Leukemoid reaction; Z96.60 Presence of unspecified orthopedic joint implant; F41.9 Anxiety disorder, unspecified; C76.1 Malignant neoplasm of thorax; Z68.23 Body mass index [BMI] 23.0-23.9, adult; D63.8 Anemia in other chronic diseases classified elsewhere; R09.02 Hypoxemia; Z28.310 Unvaccinated for COVID-19; Z51.5 Encounter for palliative care; Z87.01 Personal history of pneumonia (recurrent); Z79.899 Other long term (current) drug therapy
CPT/HCPCS: 21550; 36415; 70553; 71045; 71275; 77290; 77307; 77334; 77387; 77412; 78306; 80048; 80053; 80202; 82565; 82607; 82728; 82746; 83540; 83550; 83605; 83735; 84132; 84145; 84484; 85025; 85027; 85610; 85652; 85730; 86140; 87040; 87070; 87075; 87205; 87502; 87635; 88305; 88341; 88342; 93005; 94640; 96361; 96365; 96366; 96368; 96375; 96376; 99285

== ENCOUNTER 2022-11-12 09:04 | Inpatient (IN) | payer OTHER ==
[2022-11-12] MEDS ORDERED: SODIUM CHLORIDE 0.9% 1,000 ML IV STA (10:40)
[2022-11-12] MEDS ORDERED: FAMOTIDINE 20 MG/2 ML VIAL IV STA (10:40)
--- NOTE | 2022-11-12 10:51 | ED ---
General Adult HPI - General Chief complaint: Weakness Stated complaint: dehydration Time Seen by Provider: 11/12/22 10:31 Source: patient, family, RN notes reviewed Mode of arrival: ambulatory Limitations: no limitations - History of Present Illness Initial comments: Patient is a pleasant 62-year-old male presenting to the emergency Department with general weakness. Patient was recently in the hospital with similar problems and discharged just a few days ago. Patient did go back for radiation today however the physician there advised them to come back to the emergency department. Patient is not able to make it to the bathroom without assistance secondary to generalized weakness. Patient is drinking some fluids, less than normal. Limited food intake. No fever. No dyspnea. Patient does have some diagnosis of lung cancer. They're concerned of dehydration again. Patient does have some right arm swelling. Patient did have this on previous admission and ultrasound was reported as negative. - Related Data Home Medications Medication Instructions Recorded Confirmed Morphine Sulfate ER [Ms Contin] 15 mg PO Q8H 11/12/22 11/12/22 Morphine Sulfate ER [Ms Contin] 30 mg PO Q8H 11/12/22 11/12/22 Morphine Sulfate Ir [MSIR] 15 mg PO Q3H PRN 11/12/22 11/12/22 Allergies Allergy/AdvReac Type Severity Reaction Status Date / Time No Known Allergies Allergy Verified 11/12/22 11:31 Review of Systems ROS Statement: Those systems with pertinent positive or pertinent negative responses have been documented in the HPI. ROS Other: All systems not noted in ROS Statement are negative. Constitutional: Denies: fever Eyes: Denies: eye pain ENT: Denies: ear pain Respiratory: Denies: cough, dyspnea Cardiovascular: Denies: chest pain Endocrine: Reports: fatigue Gastrointestinal: Reports: as per HPI. Denies: abdominal pain Genitourinary: Denies: dysuria Musculoskeletal: Denies: back pain Skin: Denies: rash Neurological: Denies: weakness Past Medical History Past Medical History: Pneumonia Additional Past Medical History / Comment(s): 08/2022 R upper lung mass, past pneumonia, born with bronchitis, bilateral pneumothorax at separate times treated with chest tubes, anemia, pt denies hx of copd. History of Any Multi-Drug Resistant Organisms: None Reported Past Surgical History: Orthopedic Surgery Additional Past Surgical History / Comment(s): 08/2022 R lung bx at [facility], 10/2022 R lung bx at [facility], R knee arthroscopic surgery, L wrist ganglion cyst removed, L great toe titanium plate, colonoscopies/benign polypectomies. Past Anesthesia/Blood Transfusion Reactions: No Reported Reaction Past Psychological History: No Psychological Hx Reported Smoking Status: Former smoker Past Alcohol Use History: None Reported Past Drug Use History: None Reported - Past Family History Mother Family Medical History: Vascular Disorder Additional Family Medical History / Comment(s): Mother at the age of 78yrs from ruptured aortic aneurysm. Father Additional Family Medical History / Comment(s): Pt unable to recall specific health issues with his father. Father is alive in his mid 90s General Exam Limitations: no limitations General appearance: alert Head exam: Present: normocephalic Eye exam: Present: normal appearance ENT exam: Present: normal oropharynx Neck exam: Present: normal inspection Respiratory exam: Present: normal lung sounds bilaterally Cardiovascular Exam: Present: regular rate, normal rhythm Expanded Peripheral pulses: 2+: Radial (R), Radial (L), Dorsalis Pedis (R), Dorsalis Pe dis (L) GI/Abdominal exam: Present: soft. Absent: tenderness Extremities exam: Present: other (Mild swelling right forearm with minimal tenderness) Neurological exam: Present: alert. Absent: motor sensory deficit Expanded Motor strength exam: RUE: 5, LUE: 5, RLE: 5, LLE: 5 Psychiatric exam: Present: normal affect, normal mood Skin exam: Present: normal color Course Vital Signs 11/12/22 09:25 Temperature 97.3 F L Pulse Rate 107 H Respiratory 20 Rate Blood Pressure 108/63 O2 Sat by Pulse 96 Oximetry EKG Findings - EKG Results: EKG: interpreted by ERMD (Nonspecific ST-T), sinus rhythm (Rate 85.), normal axi s, normal QRS Medical Decision Making - Medical Decision Making Patient reevaluated. Patient still generally weak and difficult getting out of bed. Case discussed with Dr. Fuentes, who will admit covering for this tx patient. - Lab Data Result diagrams: 11/12/22 10:58 11/12/22 11:48 Lab Results 11/12/22 11/12/22 11/12/22 Range/Units 10:58 10:58 10:58 WBC 63.7 H* (3.8-10.6) k/uL RBC 3.68 L (4.30-5.90) m/uL Hgb 10.4 L (13.0-17.5) gm/dL Hct 33.2 L (39.0-53.0) % MCV 90.2 (80.0-100.0) fL MCH 28.4 (25.0-35.0) pg MCHC 31.5 (31.0-37.0) g/dL RDW 14.8 (11.5-15.5) % Plt Count 492 H (150-450) k/uL MPV 7.8 Neutrophils % 95 % Lymphocytes % 2 % Monocytes % 1 % Eosinophils % 1 % Basophils % 1 % Neutrophils # 60.6 H (1.3-7.7) k/uL Lymphocytes # 1.0 (1.0-4.8) k/uL Monocytes # 0.9 (0-1.0) k/uL Eosinophils # 0.6 (0-0.7) k/uL Basophils # 0.3 H (0-0.2) k/uL Manual Slide Review Performed Toxic Granulation Present Dohle Bodies Present Hypochromasia Marked PT 12.0 (9.0-12.0) sec INR 1.2 H (<1.2) APTT 24.9 (22.0-30.0) sec Sodium (137-145) mmol/L Potassium (3.5-5.1) mmol/L Chloride (98-107) mmol/L Carbon Dioxide (22-30) mmol/L Anion Gap mmol/L BUN (9-20) mg/dL Creatinine (0.66-1.25) mg/dL Est GFR (CKD-EPI)AfAm (>60 ml/min/1.73 sqM) Est GFR (CKD-EPI)NonAf (>60 ml/min/1.73 sqM) Glucose (74-99) mg/dL Plasma Lactic Acid Blade 2.0 (0.7-2.0) mmol/L Calcium (8.4-10.2) mg/dL Magnesium (1.6-2.3) mg/dL Total Bilirubin (0.2-1.3) mg/dL AST (17-59) U/L ALT (4-49) U/L Alkaline Phosphatase (38-126) U/L Total Protein (6.3-8.2) g/dL Albumin (3.5-5.0) g/dL 11/12/22 Range/Units 11:48 WBC (3.8-10.6) k/uL RBC (4.30-5.90) m/uL Hgb (13.0-17.5) gm/dL Hct (39.0-53.0) % MCV (80.0-100.0) fL MCH (25.0-35.0) pg MCHC (31.0-37.0) g/dL RDW (11.5-15.5) % Plt Count (150-450) k/uL MPV Neutrophils % % Lymphocytes % % Monocytes % % Eosinophils % % Basophils % % Neutrophils # (1.3-7.7) k/uL Lymphocytes # (1.0-4.8) k/uL Monocytes # (0-1.0) k/uL Eosinophils # (0-0.7) k/uL Basophils # (0-0.2) k/uL Manual Slide Review Toxic Granulation Dohle Bodies Hypochromasia PT (9.0-12.0) sec INR (<1.2) APTT (22.0-30.0) sec Sodium 137 (137-145) mmol/L Potassium 2.9 L (3.5-5.1) mmol/L Chloride 107 (98-107) mmol/L Carbon Dioxide 22 (22-30) mmol/L Anion Gap 8 mmol/L BUN 21 H (9-20) mg/dL Creatinine 0.73 (0.66-1.25) mg/dL Est GFR (CKD-EPI)AfAm >90 (>60 ml/min/1.73 sqM) Est GFR (CKD-EPI)NonAf >90 (>60 ml/min/1.73 sqM) Glucose 113 H (74-99) mg/dL Plasma Lactic Acid Blade (0.7-2.0) mmol/L Calcium 11.0 H (8.4-10.2) mg/dL Magnesium 2.0 (1.6-2.3) mg/dL Total Bilirubin 0.8 (0.2-1.3) mg/dL AST 135 H (17-59) U/L ALT 49 (4-49) U/L Alkaline Phosphatase 430 H (38-126) U/L Total Protein 6.2 L (6.3-8.2) g/dL Albumin 2.7 L (3.5-5.0) g/dL - Radiology Data Radiology results: report reviewed (Ultrasound negative for DVT) Interpreted by me: Chest x-ray interpreted by myself shows large right upper lobe mass Disposition Clinical Impression: Weakness, Lung mass, Hypokalemia Disposition: ADMITTED IP TO THIS HOSP Is patient prescribed a controlled substance at d/c from ED?: No Referrals: [facility],Clinic [Primary Care Provider] - 1-2 days Time of Disposition: 14:26
[2022-11-12 11:17] LABS: Basophils # (A) 0.3 k/uL (0-0.2); Basophils % (A) 1 %; Eosinophils # (A) 0.6 k/uL (0-0.7); Eosinophils % (A) 1 %; HCT 33.2 % (39.0-53.0); HGB 10.4 gm/dL (13.0-17.5); Hypochromasia Marked; Lymphocytes % (A) 2 %; MCH 28.4 pg (25.0-35.0); MCHC 31.5 g/dL (31.0-37.0); MCV 90.2 fL (80.0-100.0); Mean Platelet Volume 7.8; Monocytes # (A) 0.9 k/uL (0-1.0); Monocytes % (A) 1 %; Neutrophils # (A) 60.6 k/uL (1.3-7.7); Neutrophils % (A) 95 %; Platelet Count 492 k/uL (150-450); RBC 3.68 m/uL (4.30-5.90); RDW 14.8 % (11.5-15.5)
[2022-11-12 11:19] LABS: WBC 63.7 k/uL (3.8-10.6)
--- NOTE | 2022-11-12 11:42 | XR ---
EXAMINATION TYPE: XR chest 2V DATE OF EXAM: 11/12/2022 11:32 AM COMPARISON: Chest radiographs from 10/31/2022 CT TECHNIQUE: XR chest 2V Frontal and lateral views of the chest. CLINICAL INDICATION:Male, 62 years old with history of weak; FINDINGS: Lungs/Pleura: Redemonstration of large cavitating mass with extension into the supraclavicular region on the right. Few foci of gas is seen above the clavicle. Pulmonary vascularity: Unremarkable. Heart/mediastinum: Cardiomediastinal silhouette is unremarkable. Musculoskeletal: There remains destructive changes of the right upper lateral ribs from the a foremen tioned mass. IMPRESSION: Right upper lung mass or characterize on prior CT dated 10/31/2022.
[2022-11-12 11:45] LABS: INR 1.2 (<1.2); Partial Thromboplastin Time 24.9 sec (22.0-30.0)
[2022-11-12 11:55] LABS: Dohle Bodies Present; Toxic Granulation Present
[2022-11-12 12:22] LABS: ALT 49 U/L (4-49); AST 135 U/L (17-59); African American GFR (CKD) >90 (>60 ml/min/1.73 sqM); Albumin 2.7 g/dL (3.5-5.0); Alkaline Phosphatase 430 U/L (38-126); Anion Gap 8 mmol/L; Blood Urea Nitrogen 21 mg/dL (9-20); Carbon Dioxide 22 mmol/L (22-30); Chloride 107 mmol/L (98-107); Glucose 113 mg/dL (74-99); Non-African American GFR(CKD) >90 (>60 ml/min/1.73 sqM); Potassium 2.9 mmol/L (3.5-5.1); Sodium 137 mmol/L (137-145); Total Bilirubin 0.8 mg/dL (0.2-1.3); Total Protein 6.2 g/dL (6.3-8.2)
[2022-11-12] MEDS ORDERED: POTASSIUM CHLORIDE ER 20 MEQ TAB.ER PO STA (12:31)
[2022-11-12] MEDS ORDERED: POTASSIUM CHLORIDE 10 MEQ in WATER FOR INJECTION 1 100ML.BAG IVPB STA (12:31)
--- NOTE | 2022-11-12 13:29 | US ---
EXAMINATION TYPE: US venous doppler duplex UE RT DATE OF EXAM: 11/12/2022 COMPARISON: NONE CLINICAL HISTORY: swelling. Edema lymphedema. SIDE PERFORMED: right Lump clavicle area seen 5.0 x 2.8 cm. Right Arm: Negative for DVT IMPRESSION: No evidence of DVT at this time.
[2022-11-12] MEDS ORDERED: MORPHINE SULFATE IR 15 MG TABLET PO PRN (13:49)
[2022-11-12] MEDS ORDERED: NALOXONE 0.4 MG/ML 1 ML VIAL IV PRN (14:27)
[2022-11-12] MEDS: SODIUM CHLORIDE 0.9% 1,000 ML IV SCH (14:40)
[2022-11-12 17:05] LABS: Amorphous Sediment,Urine Few /hpf; Appearance,Urine Cloudy (Clear); Bilirubin,Urine Negative (Negative); Blood,Urine Trace (Negative); Color,Urine Yellow; Glucose,Urine (UA) Negative (Negative); Hyaline Casts,Urine 4 /lpf (0-2); Ketones,Urine Negative (Negative); Leukocyte Esterase,Urine Negative (Negative); Mucus,Urine Rare /hpf; Nitrite,Urine Negative (Negative); PH, Urine 6.5 (5.0-8.0); Protein,Urine Trace (Negative); RBC,Urine 3 /hpf (0-5); Specific Gravity,Urine 1.014 (1.001-1.035); Squamous Epithelial Cell,Urine <1 /hpf (0-4); Urobilinogen,Urine <2.0 mg/dL (<2.0); WBC,Urine 4 /hpf (0-5)
[2022-11-12] MEDS: MORPHINE SULFATE ER 30 MG TABLET PO SCH (17:20)
--- NOTE | 2022-11-12 19:21 | P.HPIM ---
History of Present Illness H&P Date: 11/12/22 History of Presenting Illness: Patient is a very pleasant 62-year-old male recently diagnosed with lung cancer currently undergoing radiation treatment. Patient reports he began radiation treatment yesterday 11/11/22 and today upon arrival for his scheduled radiation treatment, the physician advised him that due to his significant weakness he needed to go to the emergency department for evaluation. He was recently admitted to our facility for similar complaints 10/31/22 through 11/19/22. Patient reports experiencing extreme weakness and fatigue and that over the past 24-48 hours he has been unable to even make it to the bathroom without assistance. He does report likely dehydration with decreased appetite and oral intake, but reports this has been ongoing since diagnosis of lung cancer. Patient denies any recent fevers, chills, dizziness, lightheadedness, chest pa in, palpitations, or experiencing any numbness/tingling/focal weakness in his extremities. Patient does report continued right-sided rib pain, shortness of breath and coarse cough. Patient underwent full evaluation in the emergency department and was found to have significant leukocytosis with WBC count of 63.7 (however this appears to be at patient's baseline compared to previous hospitalization lab report), normocytic anemia with hemoglobin of 10.4 (above baseline level of 8.9), and thrombocytosis with platelet count of 492 again at baseline level. BMP revealed kalemia with potassium of 2.9 and liver profile revealed hypoalbuminemia with albumin of 2.7 and elevated liver enzymes with AST of 135 and alkaline phosphatase of 430. Urinalysis was negative for infection. Lactic acid was 2.0. EKG was completed showing normal sinus rhythm at 85 bpm with no noted T wave or ST abnormality showing no signs of acute ischemia. Chest x-ray consistent with large cavitating right upper lung mass with extension into the supraclavicular region on the right. Patient was provided with IV fluid hydration and potassium was replaced. Patient admitted under our services with consultation to oncology as well as PT/OT for evaluation. Review of systems: Pertinent positives and negatives as discussed in HPI, a complete review of systems was performed and all other systems are negative. Physical exam: Vital signs reviewed and stable. General: Nontoxic, no distress and appears stated age. Cachectic Derm: Skin warm and dry, normal coloration for ethnicity. Head: Atraumatic, normocephalic and symmetric. Eyes: EOMs intact, no lid lag, and anicteric sclera Mouth: no lip lesions, mucus membranes moist Cardiovascular: regular rate and rhythm with normal S1S2, no murmur, positive posterior tibial pulses bilaterally, and cap refill < 2 seconds. Lungs: Respirations even, regular, and unlabored on room air. Lungs diminished throughout right-sided with coarse cough. Abdominal: soft, nontender to palpation, no guarding, no appreciable organomegaly Ext: ROM intact. No gross muscle atrophy, no edema, no contractures Neuro: Speech clear, face symmetrical and CN II-XII grossly intact with no noted focal neuro deficits Psych: Alert and oriented to person, place, time, and situation. Appropriate and pleasant affect. Assessment and Plan of Care: Dehydration and generalized weakness -Patient received 1 L bolus of 0.9% normal saline in the emergency department and will continue with gentle IV fluid hydration. -Fall precautions -PT/OT consulted Hypokalemia -Replaced, we will continue to monitor with repeat a.m. labs. Lung cancer Large cavitating right upper lumbar region -Final pathology results currently pending as specimen was sent to [facility] for further evaluation. -Patient reports last radiation treatment received 11/11/22 -Hematology/oncology consulted and appreciate further recommendations. -Continue to provide symptomatic care and pain management, reordered patient's home medication regimen with MS Contin Severe leukocytosis, neutrophilic predominant Normocytic anemia Thrombocytosis Elevated liver enzymes -Chronic and appear to be at baseline levels. Hypoalbuminemia -Likely secondary to decreased oral intake, encourage patient to eat. The patient is admitted with an anticipated greater than 2 midnight stay for evaluation of dehydration and generalized weakness. CODE STATUS: DO NOT RESUSCITATE/DO NOT INTUBATE DVT prophylaxis: Lovenox Discussed with: Patient and RN Anticipated discharge date: clinical course to determine Anticipated discharge place: Home A total of 36 minutes was spent on the care of this complex patient more than 50% of the time was spent in counseling and care coordination. Past Medical History Past Medical History: Pneumonia Additional Past Medical History / Comment(s): 08/2022 R upper lung mass, past pneumonia, born with bronchitis, bilateral pneumothorax at separate times treated with chest tubes, anemia, pt denies hx of copd. History of Any Multi-Drug Resistant Organisms: None Reported Past Surgical History: Orthopedic Surgery Additional Past Surgical History / Comment(s): 08/2022 R lung bx at [facility], 10/2022 R lung bx at [facility], R knee arthroscopic surgery, L wrist ganglion cyst removed, L great toe titanium plate, colonoscopies/benign polypectomies. Past Anesthesia/Blood Transfusion Reactions: No Reported Reaction Past Psychological History: No Psychological Hx Reported Smoking Status: Former smoker Past Alcohol Use History: None Reported Past Drug Use History: None Reported - Past Family History Mother Family Medical History: Vascular Disorder Additional Family Medical History / Comment(s): Mother at the age of 78yrs from ruptured aortic aneurysm. Father Additional Family Medical History / Comment(s): Pt unable to recall specific health issues with his father. Father is alive in his mid 90s Medications and Allergies Home Medications Medication Instructions Recorded Confirmed Type Morphine Sulfate ER [Ms Contin] 15 mg PO Q8H 11/12/22 11/12/22 History Morphine Sulfate ER [Ms Contin] 30 mg PO Q8H 11/12/22 11/12/22 History Morphine Sulfate Ir [MSIR] 15 mg PO Q3H PRN 11/12/22 11/12/22 History Allergies Allergy/AdvReac Type Severity Reaction Status Date / Time No Known Allergies Allergy Verified 11/12/22 11:31 Physical Exam Vitals: Vital Signs Temp Pulse Resp BP Pulse Ox 11/12/22 09:25 97.3 F L 107 H 20 108/63 96 Intake and Output 11/11/22 11/12/22 11/12/22 22:59 06:59 14:59 Other: Weight 77.111 kg Results CBC & Chem 7: 11/12/22 10:58 11/12/22 11:48 Labs: Abnormal Lab Results - Last 24 Hours (Table) 11/12/22 11/12/22 11/12/22 Range/Units 10:58 10:58 11:48 WBC 63.7 H* (3.8-10.6) k/uL RBC 3.68 L (4.30-5.90) m/uL Hgb 10.4 L (13.0-17.5) gm/dL Hct 33.2 L (39.0-53.0) % Plt Count 492 H (150-450) k/uL Neutrophils # 60.6 H (1.3-7.7) k/uL Basophils # 0.3 H (0-0.2) k/uL INR 1.2 H (<1.2) Potassium 2.9 L (3.5-5.1) mmol/L BUN 21 H (9-20) mg/dL Glucose 113 H (74-99) mg/dL Calcium 11.0 H (8.4-10.2) mg/dL AST 135 H (17-59) U/L Alkaline Phosphatase 430 H (38-126) U/L Total Protein 6.2 L (6.3-8.2) g/dL Albumin 2.7 L (3.5-5.0) g/dL
[2022-11-12 19:24] LABS: African American GFR (CKD) >90 (>60 ml/min/1.73 sqM); Anion Gap 7 mmol/L; Blood Urea Nitrogen 20 mg/dL (9-20); Calcium 11.7 mg/dL (8.4-10.2); Carbon Dioxide 22 mmol/L (22-30); Chloride 110 mmol/L (98-107); Glucose 105 mg/dL (74-99); Non-African American GFR(CKD) >90 (>60 ml/min/1.73 sqM); Potassium 3.4 mmol/L (3.5-5.1); Sodium 139 mmol/L (137-145)
[2022-11-12] MEDS: MORPHINE SULFATE ER 15 MG TABLET PO SCH (23:45)
[2022-11-13] MEDS: SODIUM CHLORIDE 0.9% 1,000 ML IV SCH ×2 (04:26→17:24)
[2022-11-13] MEDS: PANTOPRAZOLE 40 MG TABLET PO SCH (05:54)
[2022-11-13 09:22] LABS: Magnesium 2.1 mg/dL (1.5-2.4)
[2022-11-13] MEDS: MORPHINE SULFATE ER 15 MG TABLET PO SCH ×2 (09:22→23:18)
[2022-11-13] MEDS: ENOXAPARIN 40 MG/0.4 ML SYRINGE SQ SCH (09:23)
[2022-11-13 09:33] LABS: African American GFR (CKD) 113.3 (60.0-200.0); Anion Gap 13.3 mmol/L (10.00-18.00); BUN/Creat Ratio 23.54 Ratio (12.00-20.00); Blood Urea Nitrogen 18.2 mg/dL (9.0-27.0); Calcium 12.2 mg/dL (8.7-10.3); Carbon Dioxide 22.3 mmol/L (20.0-27.5); Non-African American GFR(CKD) 97.8 (60.0-200.0); Potassium 3.3 mmol/L (3.5-5.5)
[2022-11-13 09:35] LABS: HCT 30.2 % (39.6-50.0); HGB 9.4 g/dL (13.0-17.0); MCH 28.3 pg (27.0-32.0); MCHC 31.1 g/dL (32.0-37.0); Mean Platelet Volume 9.8 fL (9.5-12.2); NRBC Per 100 WBC 0 /100 WBCS (0.0-0.0); Platelet Count 474 X 10*3/uL (140-440); RBC 3.32 X 10*6/uL (4.40-5.60); RDW 15.5 % (11.5-14.5); WBC 72.77 X 10*3/uL (4.50-10.00)
--- NOTE | 2022-11-13 12:19 | P.PN ---
Subjective Progress Note Date: 11/13/22 Principal diagnosis: lung cancer, pain/confusion After initially clinically improving and being sent home from the hospital last week, the patient presented to radiotherapy on Saturday with alteration in his responsiveness. He was found to be hypotensive and tachycardic. He was sent to the ER, and has had IV hydration. Unfortunately at the time of my visit with the patient, he is still today quite confused and not responding appropriately. He is still having significant pain, and the patient's family states he does not appear comfortable. The patient's family has expressed an interest in discontinuation of treatment and pursuing hospice considering his current condition. Objective - Vital Signs Vital signs: Vital Signs Temp 97.8 F 11/13/22 08:05 Pulse 106 H 11/13/22 08:05 Resp 16 11/13/22 08:05 BP 133/70 11/13/22 08:05 Pulse Ox 96 11/13/22 08:05 FiO2 Intake & Output 11/12/22 11/13/22 11/13/22 18:59 06:59 18:59 Intake Total 500 Output Total 700 200 Balance -200 -200 Weight 77.111 kg 77.111 kg Intake: Oral 500 Output: Urine 700 200 Other: Voiding Method External Catheter External Catheter # Bowel Movements 0 - Constitutional General appearance: Present: mild distress - EENT Eyes: Present: EOMI, PERRLA ENT: Present: hearing grossly normal - Neck Neck: Present: lymphadenopathy - Respiratory Respiratory: right: diminished, left: CTA - Cardiovascular Rhythm: regular - Gastrointestinal General gastrointestinal: Absent: distended - Psychiatric Psychiatric: Absent: A&O x's 3, appropriate affect - Labs CBC & Chem 7: 11/13/22 05:23 11/13/22 05:23 Labs: Abnormal Lab Results - Last 24 Hours (Table) 11/12/22 11/12/22 11/12/22 Range/Units 10:58 11:48 18:30 WBC (4.50-10.00) X 10*3/uL RBC (4.40-5.60) X 10*6/uL Hgb (13.0-17.0) g/dL Hct (39.6-50.0) % MCHC (32.0-37.0) g/dL RDW (11.5-14.5) % Plt Count (140-440) X 10*3/uL Potassium 2.9 L 3.4 L (3.5-5.1) mmol/L Chloride 110 H (98-107) mmol/L BUN 21 H (9-20) mg/dL BUN/Creatinine Ratio (12.00-20.00) Ratio Glucose 113 H 105 H (74-99) mg/dL Calcium 11.0 H 11.7 H (8.4-10.2) mg/dL AST 135 H (17-59) U/L Alkaline Phosphatase 430 H (38-126) U/L Total Protein 6.2 L (6.3-8.2) g/dL Albumin 2.7 L (3.5-5.0) g/dL Urine Protein Trace H (Negative) Urine Blood Trace H (Negative) Amorphous Sediment Few H (None) /hpf Hyaline Casts 4 H (0-2) /lpf Urine Mucus Rare H (None) /hpf 11/13/22 11/13/22 Range/Units 05:23 05:23 WBC 72.77 H* (4.50-10.00) X 10*3/uL RBC 3.32 L (4.40-5.60) X 10*6/uL Hgb 9.4 L (13.0-17.0) g/dL Hct 30.2 L (39.6-50.0) % MCHC 31.1 L (32.0-37.0) g/dL RDW 15.5 H (11.5-14.5) % Plt Count 474 H (140-440) X 10*3/uL Potassium 3.3 L (3.5-5.1) mmol/L Chloride (98-107) mmol/L BUN (9-20) mg/dL BUN/Creatinine Ratio 23.54 H (12.00-20.00) Ratio Glucose (74-99) mg/dL Calcium 12.2 H (8.4-10.2) mg/dL AST (17-59) U/L Alkaline Phosphatase (38-126) U/L Total Protein (6.3-8.2) g/dL Albumin (3.5-5.0) g/dL Urine Protein (Negative) Urine Blood (Negative) Amorphous Sediment (None) /hpf Hyaline Casts (0-2) /lpf Urine Mucus (None) /hpf Assessment and Plan Assessment: The patient is a 62-year-old male with a history of a recently diagnosed right upper lung malignancy with significant chest wall invasion including destruction of the first and second rib. He presented to the hospital secondary to significant pain, and after prolonged hospital stay was discharged this past week. He unfortunately again became hypotensive and developed alteration in his mental status. 1. Locally advanced right upper lung cancer: As detailed above, the patient has completed only 3 palliative fractions of radiation. Despite being sent home a few days ago, the patient again rapidly declined and was hospitalized. He continues to have alteration in his mental status at this time. He continues to have difficulty with uncontrolled right upper extremity pain. The patient's family is interested in pursuing hospice care. Considering the patient's poor performance status and rapid decline after his discharge, I do not feel this is unreasonable in his case. I will discuss this further with medical oncology. Palliative radiotherapy will be discontinued at this time. Time with Patient: Less than 30
[2022-11-13] MEDS ORDERED: POTASSIUM CHLORIDE ER 20 MEQ TAB.ER PO STA (15:13)
[2022-11-13] MEDS ORDERED: HYDROmorphone 1 MG/ML 1 ML SYRINGE IVP PRN (15:14)
--- NOTE | 2022-11-13 15:23 | P.PN ---
Subjective Progress Note Date: 11/13/22 Hospital course: Patient is a very pleasant 62-year-old male recently diagnosed with lung cancer currently undergoing radiation treatment. Patient reports he began radiation treatment yesterday 11/11/22 and today upon arrival for his scheduled radiation treatment, the physician advised him that due to his significant weakness he needed to go to the emergency department for evaluation. He was recently admitted to our facility for similar complaints 10/31/22 through 11/19/22. Patient reports experiencing extreme weakness and fatigue and that over the past 24-48 hours he has been unable to even make it to the bathroom without assistance. He does report likely dehydration with decreased appetite and oral intake, but reports this has been ongoing since diagnosis of lung cancer and also reports continued pain in right upper extremity and right rib region. Patient underwent full evaluation in the emergency department and was found to have significant leukocytosis with WBC count of 63.7 (however this appears to be at patient's baseline compared to previous hospitalization lab report), normocytic anemia with hemoglobin of 10.4 (above baseline level of 8.9), and thrombocytosis with platelet count of 492 again at baseline level. BMP revealed kalemia with potassium of 2.9 and liver profile revealed hypoalbuminemia with albumin of 2.7 and elevated liver enzymes with AST of 135 and alkaline phosphatase of 430. Urinalysis was negative for infection. Lactic acid was 2.0. EKG was completed showing normal sinus rhythm at 85 bpm with no noted T wave or ST abnormality showing no signs of acute ischemia. Chest x-ray consistent with large cavitating right upper lung mass with extension into the supraclavicular region on the right. Patient was provided with IV fluid hyd ration and potassium was replaced. Patient admitted under our services with consultation to oncology, radiation oncology as well as PT/OT for evaluation. Family expressed interest in pursuing hospice care to radiation oncologist and radiation oncologist reporting that secondary to patient's poor overall performance and rapid decline after recent discharge that they are in agreement with this plan and have agreed to discontinue palliative radiotherapy at this time. [facility] reporting that family has contacted them and are currently making arrangements for patient to be brought home with hospice. Patient has been accepted by [facility] and currently tentative plan is for discharge home tomorrow morning under hospitalist services. Physical exam: Patient was seen and fully evaluated at bedside. Patient currently reporting feeling tired with continued right arm pain. Patient did not eat any of his breakfast this morning, patient states he tried but he just can't. He denies experiencing nausea just states no appetite. Additional orders being placed to ensure adequate pain control. Discussed with case management that family has made arrangements to take patient home on hospice and preparing home at this time. Patient has been accepted by [facility] and currently tentative plan is for discharge home tomorrow morning under hospitalist services. Vital signs reviewed and stable. General: Nontoxic, no distress and appears stated age. Cachectic and slightly lethargic but easily aroused via verbal stimuli. Derm: Skin warm and dry, normal coloration for ethnicity. Head: Atraumatic, normocephalic and symmetric. Eyes: EOMs intact, no lid lag, and anicteric sclera Mouth: no lip lesions, mucus membranes moist Cardiovascular: regular rate and rhythm with normal S1S2, no murmur, positive posterior tibial pulses bilaterally, and cap refill < 2 seconds. Lungs: Respirations even, regular, and unlabored on room air. Lungs diminished throughout right-sided with coarse cough. Abdominal: soft, nontender to palpation, no guarding, no appreciable organomegaly Ext: ROM intact. No gross muscle atrophy, no edema, no contractures Neuro: Speech clear, face symmetrical and CN II-XII grossly intact with no noted focal neuro deficits Psych: Alert and oriented to person, place, time, and situation. Appropriate and pleasant affect. Assessment and Plan of Care: Lung cancer Large cavitating right upper lung lesion consistent with malignancy. -Final pathology results currently pending as specimen was sent to [facility] for further evaluation. -Patient reports last radiation treatment received 11/11/22 -Hematology/oncology consulted and appreciate further recommendations. -Radiation oncology consulted and discussed with family their interest in pursuing hospice care at this time secondary to patient's rapid decline. -Continue to provide symptomatic care and pain management, reordered patient's home medication regimen with MS Contin -Patient has been accepted by [facility] and currently tentative plan is for discharge home tomorrow morning under hospitalist services. Dehydration and generalized weakness -Patient received 1 L bolus of 0.9% normal saline in the emergency department and will continue with gentle IV fluid hydration. -Fall precautions -PT/OT consulted Hypokalemia -Replaced. Severe leukocytosis, neutrophilic predominant Normocytic anemia Thrombocytosis Elevated liver enzymes -Chronic and appear to be at baseline levels. Hypoalbuminemia -Likely secondary to decreased oral intake, encourage patient to eat. The patient is admitted with an anticipated greater than 2 midnight stay for evaluation of dehydration and generalized weakness. CODE STATUS: DO NOT RESUSCITATE/DO NOT INTUBATE Discussed with: Patient, case management and RN Anticipated discharge date: Tomorrow morning, patient has been accepted by [facility] and currently tentative plan is for discharge home tomorrow morning under hospitalist services. Anticipated discharge place: Home with hospice A total of 34 minutes was spent on the care of this complex patient more than 50% of the time was spent in counseling and care coordination. Objective - Vital Signs Vital signs: Vital Signs Temp 97.8 F 11/13/22 08:05 Pulse 106 H 11/13/22 08:05 Resp 16 11/13/22 08:05 BP 133/70 11/13/22 08:05 Pulse Ox 96 11/13/22 08:05 FiO2 Intake & Output 11/12/22 11/13/22 11/13/22 18:59 06:59 18:59 Intake Total 500 Output Total 700 Balance -200 Weight 77.111 kg 77.111 kg Intake: Oral 500 Output: Urine 700 Other: Voiding Method External Catheter - Labs CBC & Chem 7: 11/13/22 05:23 11/13/22 05:23 Labs: Abnormal Lab Results - Last 24 Hours (Table) 11/12/22 11/12/22 11/12/22 Range/Units 10:58 10:58 10:58 WBC 63.7 H* (3.8-10.6) k/uL RBC 3.68 L (4.30-5.90) m/uL Hgb 10.4 L (13.0-17.5) gm/dL Hct 33.2 L (39.0-53.0) % Plt Count 492 H (150-450) k/uL Neutrophils # 60.6 H (1.3-7.7) k/uL Basophils # 0.3 H (0-0.2) k/uL INR 1.2 H (<1.2) Potassium (3.5-5.1) mmol/L Chloride (98-107) mmol/L BUN (9-20) mg/dL Glucose (74-99) mg/dL Calcium (8.4-10.2) mg/dL AST (17-59) U/L Alkaline Phosphatase (38-126) U/L Total Protein (6.3-8.2) g/dL Albumin (3.5-5.0) g/dL Urine Protein Trace H (Negative) Urine Blood Trace H (Negative) Amorphous Sediment Few H (None) /hpf Hyaline Casts 4 H (0-2) /lpf Urine Mucus Rare H (None) /hpf 11/12/22 11/12/22 Range/Units 11:48 18:30 WBC (3.8-10.6) k/uL RBC (4.30-5.90) m/uL Hgb (13.0-17.5) gm/dL Hct (39.0-53.0) % Plt Count (150-450) k/uL Neutrophils # (1.3-7.7) k/uL Basophils # (0-0.2) k/uL INR (<1.2) Potassium 2.9 L 3.4 L (3.5-5.1) mmol/L Chloride 110 H (98-107) mmol/L BUN 21 H (9-20) mg/dL Glucose 113 H 105 H (74-99) mg/dL Calcium 11.0 H 11.7 H (8.4-10.2) mg/dL AST 135 H (17-59) U/L Alkaline Phosphatase 430 H (38-126) U/L Total Protein 6.2 L (6.3-8.2) g/dL Albumin 2.7 L (3.5-5.0) g/dL Urine Protein (Negative) Urine Blood (Negative) Amorphous Sediment (None) /hpf Hyaline Casts (0-2) /lpf Urine Mucus (None) /hpf
[2022-11-13] MEDS: MORPHINE SULFATE ER 30 MG TABLET PO SCH (15:57)
--- NOTE | 2022-11-13 18:53 | P.CONS ---
History of Present Illness - Reason for Consult Consult date: 11/13/22 Oncology care Requesting physician: Rafi Alston - Chief Complaint Progressive weakness - History of Present Illness Patient was seen in consult during his 10/31 through 11/09 hospitalization. Patient had previously been seen at the [facility] in [place]. He had had biopsy of a right upper lobe lung mass, unfortunately nondiagnostic, Imaging was most consistent with a Pancoast tumor, destruction into the ribs, no evidence of metastatic disease. Patient had progressive pain In the right shoulder area so he came to the hospital to be evaluated. He had Another biopsy 11/05/22 that confirmed malignancy but, was sent for additional staining for primary/subtype. This information is still pending as of today. There is a pending request for cell blocks to be sent for NGS and PDL 1 testing, If appropriate. MRI of the brain showed no evidence of intraparenchymal metastases, is a small area in the bone, nuclear medicine bone scan was negative. Patient was going to complete some palliative radiation therapy for the pain but, after discharge last week he continued to decline. He showed up for radiation and was sent to the ER. When seen today patient is moaning and mumbling, "in a lot of pain" then drifting off to sleep. While we are in the room patient's called on the phone. We answered and spoke with her. Patient's had just a few questions but, she and her family have discussed the patient's condition extensively. They're very concerned that patient is too weak and not well enough to proceed with any therapy. Review of Systems ROS unobtainable: due to mental status Past Medical History Past Medical History: Cancer, Pneumonia Additional Past Medical History / Comment(s): 08/2022 R upper lung mass, past pneumonia, born with bronchitis, bilateral pneumothorax at separate times treated with chest tubes, anemia, pt denies hx of copd. History of Any Multi-Drug Resistant Organisms: None Reported Past Surgical History: Orthopedic Surgery Additional Past Surgical History / Comment(s): 08/2022 R lung bx at [facility], 10/2022 R lung bx at [facility], R knee arthroscopic surgery, L wrist ganglion cyst removed, L great toe titanium plate, colonoscopies/benign polypectomies. Past Anesthesia/Blood Transfusion Reactions: No Reported Reaction Past Psychological History: No Psychological Hx Reported Additional Psychological History / Comment(s): Pt resides with his spouse. He uses no assistive device. He no longer drives, his spouse drives. Smoking Status: Former smoker Past Alcohol Use History: None Reported Additional Past Alcohol Use History / Comment(s): Pt started smoking in 1971 and quit 1 month ago, he was a ppd smoker. Pt states he drank heavily in the past but quit in 1998. Past Drug Use History: None Reported Additional Drug Use History / Comment(s): Past marijuana use. - Past Family History Mother Family Medical History: Vascular Disorder Additional Family Medical History / Comment(s): Mother at the age of 78yrs from ruptured aortic aneurysm. Father Additional Family Medical History / Comment(s): Pt unable to recall specific health issues with his father. Father is alive in his mid 90s Medications and Allergies Home Medications Medication Instructions Recorded Confirmed Type Morphine Sulfate ER [Ms Contin] 15 mg PO Q8H 11/12/22 11/12/22 History Morphine Sulfate ER [Ms Contin] 30 mg PO Q8H 11/12/22 11/12/22 History Morphine Sulfate Ir [MSIR] 15 mg PO Q3H PRN 11/12/22 11/12/22 History Allergies Allergy/AdvReac Type Severity Reaction Status Date / Time No Known Allergies Allergy Verified 11/12/22 11:31 Physical Exam Vitals: Vital Signs Temp Pulse Pulse Resp BP BP Pulse Ox 11/13/22 15:00 98.3 F 106 H 16 147/82 96 11/13/22 14:00 106 H 16 11/13/22 08:05 97.8 F 106 H 16 133/70 96 11/13/22 08:00 106 H 16 11/13/22 02:00 98.3 F 79 16 130/71 95 11/12/22 21:26 97.7 F 101 H 16 133/71 95 11/12/22 20:37 70 14 135/72 92 L 11/12/22 20:00 103 H Intake and Output 11/13/22 11/13/22 11/13/22 06:59 14:59 22:59 Intake Total 250 90 Output Total 700 200 Balance -450 -110 Intake: Oral 250 90 Output: Urine 700 200 Other: Voiding Method External Catheter # Voids 0 1 # Bowel Movements 0 - Constitutional General appearance: disheveled, mild distress, thin - EENT Eyes: anicteric sclerae, poor dentition ENT: hearing grossly normal - Neck Neck: lymphadenopathy - Respiratory Respiratory: right: rhonchi, wheezing - Cardiovascular Rhythm: regular Heart sounds: normal: S1, S2 Abnormal Heart Sounds: no systolic murmur, no diastolic murmur, no rub, no S3 Gallop, no S4 Gallop, no click, no other leg Peripheral Edema: bilateral: None - Gastrointestinal General gastrointestinal: no absent bowel sounds, no decreased bowel sounds, no distended, no hepatomegaly, no hyperactive bowel sounds, normal bowel sounds, no organomegaly, no rigid, no scaphoid, soft, no splenomegaly, no tenderness, no umbilical hernia, no ventral hernia - Musculoskeletal Musculoskeletal: generalized weakness - Psychiatric Agitated Psychiatric: no A&O x's 3, no appropriate affect, no intact judgment & insight Results CBC & Chem 7: 11/13/22 05:23 11/13/22 05:23 Labs: Abnormal Lab Results - Last 24 Hours (Table) 11/12/22 11/13/22 11/13/22 Range/Units 18:30 05:23 05:23 WBC 72.77 H* (4.50-10.00) X 10*3/uL RBC 3.32 L (4.40-5.60) X 10*6/uL Hgb 9.4 L (13.0-17.0) g/dL Hct 30.2 L (39.6-50.0) % MCHC 31.1 L (32.0-37.0) g/dL RDW 15.5 H (11.5-14.5) % Plt Count 474 H (140-440) X 10*3/uL Potassium 3.4 L 3.3 L (3.5-5.1) mmol/L Chloride 110 H (98-107) mmol/L BUN/Creatinine Ratio 23.54 H (12.00-20.00) Ratio Glucose 105 H (74-99) mg/dL Calcium 11.7 H 12.2 H (8.4-10.2) mg/dL Venous US: report reviewed (Right upper extremity, negative for DVT) Assessment and Plan (1) Weakness Current Visit: Yes Status: Acute Priority: High Code(s): R53.1 - WEAKNESS SNOMED Code(s): 63705162 (2) Cavitating mass in right upper lung lobe Current Visit: Yes Status: Acute Priority: High Code(s): J98.4 - OTHER DISORDERS OF LUNG SNOMED Code(s): 416212937 (3) Metabolic encephalopathy Current Visit: Yes Status: Acute Priority: High Code(s): G93.41 - METABOLIC ENCEPHALOPATHY SNOMED Code(s): 39163963 Plan: Patient has had a significant decline in his mental status since discharge about 4 days ago. Patient's reports that he has been declining every single day since he's been home-encephalopathy from meds? All of patient's 's questions on the phone. and family feel that the patient is weak and do not suspect that he is going to tolerate treatment. Also, he is still weak he can't get around the house. We reviewed that it is not unreasonable to pursue hospice care. We briefly discussed hospice philosophy. Case was also discussed with Radiation Oncologist, they too agree that hospice is a reasonable plan of care. Hospice consulted. Discharge home with family under care of hospice once everything in place attests: I've seen and examined patient, performed H&P, developed impression and plan of care. Discussed with dictator. Agree with documentation, dictated as a scribe Time with Patient: Greater than 30
[2022-11-13 23:53] VITALS: RESP 17
[2022-11-14] MEDS: SODIUM CHLORIDE 0.9% 1,000 ML IV SCH (04:28)
[2022-11-14] MEDS: PANTOPRAZOLE 40 MG TABLET PO SCH (04:28)
[2022-11-14] MEDS: MORPHINE SULFATE ER 15 MG TABLET PO SCH (06:45)
[2022-11-14 08:41] VITALS: BP 147/68; PULSE 108; TEMP 99.9
[2022-11-14] MEDS: ENOXAPARIN 40 MG/0.4 ML SYRINGE SQ SCH (09:11)
--- NOTE | 2022-11-14 09:53 | P.DS ---
Providers Date of admission: 11/12/22 19:12 Expected date of discharge: 11/14/22 Attending physician: Stan Plascencia MD Consults: 11/12/22 14:27 Consult Physician Routine Consulting Provider: Geremias Estevez Consult Reason/Comments: Oncological care Do you want consulting provider notified?: Yes 11/12/22 20:45 Consult Physician Routine Consulting Provider: Hiro Schneider Consult Reason/Comments: continuation of radiation Do you want consulting provider notified?: Yes, Notify in am Primary care physician: [facility] Hospital Course: Discharge Diagnosis: Lung cancer Large cavitating right upper lung lesion consistent with malignancy. Dehydration and generalized weakness Hypokalemia Severe leukocytosis, neutrophilic predominant Normocytic anemia Thrombocytosis Elevated liver enzymes Hypoalbuminemia Hospital Course: Patient is a very pleasant 62-year-old male recently diagnosed with lung cancer currently undergoing radiation treatment. Patient reports he began radiation treatment yesterday 11/11/22 and today upon arrival for his scheduled radiation treatment, the physician advised him that due to his significant weakness he needed to go to the emergency department for evaluation. He was recently admitted to our facility for similar complaints 10/31/22 through 11/19/22. Patient reports experiencing extreme weakness and fatigue and that over the past 24-48 hours he has been unable to even make it to the bathroom without assistance. He does report likely dehydration with decreased appetite and oral intake, but reports this has been ongoing since diagnosis of lung cancer and also reports continued pain in right upper extremity and right rib region. Marcy boykin underwent full evaluation in the emergency department and was found to have significant leukocytosis with WBC count of 63.7 (however this appears to be at patient's baseline compared to previous hospitalization lab report), normocytic anemia with hemoglobin of 10.4 (above baseline level of 8.9), and thrombocytosis with platelet count of 492 again at baseline level. BMP revealed kalemia with potassium of 2.9 and liver profile revealed hypoalbuminemia with albumin of 2.7 and elevated liver enzymes with AST of 135 and alkaline phosphatase of 430. Urinalysis was negative for infection. Lactic acid was 2.0. EKG was completed showing normal sinus rhythm at 85 bpm with no noted T wave or ST abnormality showing no signs of acute ischemia. Chest x-ray consistent with large cavitating right upper lung mass with extension into the supraclavicular region on the right. Patient was provided with IV fluid hydration and potassium was replaced. Patient admitted under our services with consultation to oncology, radiation oncology as well as PT/OT for evaluation. Family expressed interest in pursuing hospice care to radiation oncologist and radiation oncologist reporting that secondary to patient's poor overall performance and rapid decline after recent discharge that they are in agreement with this plan and have agreed to discontinue palliative radiotherapy at this time. [facility] management reporting that family has contacted them and are currently making arrangements for patient to be brought home with hospice. Patient has been accepted by [facility] for home hospice care. Discussion with patient, patient's , patient's brother, and hospice nurse and patient being discharged home this morning on hospice. Patient's reports patient has pain medications at home and denies having any needs from medical team at this time. Patient discharged home into care of family and [facility] services. Physical exam: Vital signs reviewed and stable. General: Nontoxic, no distress and appears stated age. Cachectic and slightly lethargic but easily aroused via verbal stimuli. Derm: Skin warm and dry, normal coloration for ethnicity. Head: Atraumatic, normocephalic and symmetric. Eyes: EOMs intact, no lid lag, and anicteric sclera Mouth: no lip lesions, mucus membranes moist Cardiovascular: regular rate and rhythm with normal S1S2, no murmur, positive posterior tibial pulses bilaterally, and cap refill < 2 seconds. Lungs: Respirations even, regular, and unlabored on room air. Lungs diminished throughout right-sided with coarse cough. Abdominal: soft, nontender to palpation, no guarding, no appreciable organomegaly Ext: ROM intact. No gross muscle atrophy, no edema, no contractures Neuro: Speech clear, face symmetrical and CN II-XII grossly intact with no noted focal neuro deficits Psych: Alert and oriented to person, place, time, and situation. Appropriate and pleasant affect. A total of 36 minutes of time were spent preparing this complex discharge summary. Pt was discharged on 11/14/22 and 9:52 AM. Attending Note Ezequiel Eckert NP rendered care for this patient independently, reviewed the findings and plan as documented in the note above. I did not physically speak with our examined the patient on this date. Plan - Discharge Summary New Discharge Prescriptions: Continue Morphine Sulfate Ir [MSIR] 15 mg PO Q3H PRN PRN Reason: Pain Morphine Sulfate ER [Ms Contin] 15 mg PO Q8H Morphine Sulfate ER [Ms Contin] 30 mg PO Q8H Discharge Medication List Morphine Sulfate ER [Ms Contin] 15 mg PO Q8H 11/12/22 [History] Morphine Sulfate ER [Ms Contin] 30 mg PO Q8H 11/12/22 [History] Morphine Sulfate Ir [MSIR] 15 mg PO Q3H PRN 11/12/22 [History] Follow up Appointment(s)/Referral(s): [facility],Clinic [Primary Care Provider] - 1-2 days Discharge Disposition: HOME WITH HOSPICE
== END 2022-11-14 13:25 | disposition hospice, home (50) | DRG 180 ==
LOC: EC 09:04 → 6NMEDSUR 14:27 → OBSVTOIN 19:12 → 6NMEDSUR 20:46
PROVIDERS: ADMIT Student in an Organized Health Care Education/Training Program; ATTEND Student in an Organized Health Care Education/Training Program
DX: C34.11 Malignant neoplasm of upper lobe, right bronchus or lung (principal); G93.41 Metabolic encephalopathy; E86.0 Dehydration; D64.9 Anemia, unspecified; I95.9 Hypotension, unspecified; R00.0 Tachycardia, unspecified; Z51.5 Encounter for palliative care; Z66 Do not resuscitate; D72.829 Elevated white blood cell count, unspecified; D75.839 Thrombocytosis, unspecified; E87.6 Hypokalemia; E88.09 Other disorders of plasma-protein metabolism, not elsewhere classified; Z87.01 Personal history of pneumonia (recurrent); Z87.891 Personal history of nicotine dependence; Z87.19 Personal history of other diseases of the digestive system
CPT/HCPCS: 36415; 71046; 77387; 77412; 80048; 80053; 81001; 83605; 83735; 85025; 85027; 85610; 85730; 93005; 96361; 96365; 96375; 99285